=== PATIENT | female | born 1945 | race Caucasian/White ===

== ENCOUNTER 2022-05-08 16:21 | Inpatient (IN) ==
[2022-05-08] MEDS ORDERED: SODIUM CHLORIDE 0.9% 500 ML IV STA (17:07)
[2022-05-08 17:31] LABS: Basophils # (auto) 0.04 K/uL (0-0.2); Basophils % (auto) 0.3 %; Eosinophils # (auto) 0.27 K/uL (0-0.50); Eosinophils % (auto) 2.2 %; Hematocrit (blood only) 34.7 % (34.1-44.9); Hemoglobin 10.8 g/dl (12.0-16.0); Immature Granulocytes # (auto) 0.04 K/uL (0.00-0.02); Immature Granulocytes % (auto) 0.3 %; Lymphocytes # (auto) 3.75 K/uL (1.2-3.4); Mean Corpuscular Hemoglobin 29.2 pg (25.0-34.0); Mean Corpuscular Hgb Conc 31.1 g/dL (32.0-36.0); Mean Corpuscular Volume 93.8 fL (80.0-100.0); Mean Platelet Volume 8.9 fL (9.4-12.3); Monocytes # (auto) 0.74 K/uL (0.24-0.82); Monocytes % (auto) 6.1 %; Neutrophils # (auto) 7.26 K/uL (1.4-6.5); Neutrophils % (auto) 60.1 %; Platelet Count 452 K/uL (130-400); RDW Coefficient of Variation 14.8 % (11.5-14.5); RDW Standard Deviation 50.7 fL (36.4-46.3)
--- NOTE | 2022-05-08 17:32 | Emergency Department Note ---
Impression & Plan Diffuse abdominal pain, Ileitis, Leukocytosis, Acute urinary retention, Failure of outpatient treatment ED Provider Note NAME: NELLIE MELENDREZ AGE: 77 SEX: F : 1945 ARRIVES VIA: Ambulance INFORMANT: [Patient][ems, nursing] ED PROVIDER(S): [Desmond Tafoya MD] CHIEF COMPLAINT: Diarrhea HISTORY OF PRESENT ILLNESS: The patient is a 77-year-old female who by report is on 2 antibiotics. Looking at old records, she was in this ED around a week ago and given cefdinir and Flagyl for ileitis. She has been having 2 days of explosive diarrhea which nursing staff feels may be C. difficile. The patient currently denies pain. She has a history of stroke and is nonverbal but can nod her head yes or no. There has been some nausea reported. No reported vomiting. Given the patient's nonverbal status, no further history obtainable. REVIEW OF SYSTEMS: Unobtainable given the nonverbal status. PMHx/PSHx: See Below SOCIAL HISTORY: See Below. PHYSICAL EXAM: GENERAL: Patient is in no acute distress. HEENT: No acute trauma, normocephalic atraumatic, mucous membranes moist, no nasal congestion, no scleral icterus. NECK: No stridor, no adenopathy, no meningismus, trachea is midline. LUNGS: Clear to auscultation bilaterally, no wheeze, no rhonchi, breath sounds equal. HEART: Without murmurs gallops or rubs, regular rate and rhythm. ABDOMEN: Soft, nontender, bowel sounds positive, no peritonitis. EXTREMITIES: No cyanosis or edema, full range of motion of all the joints without pain or difficulty, no signs for acute trauma. NEUROLOGIC: Nonverbal, no real movement of the right upper extremity, decreased movement of the right lower extremity when compared to left. The patient does attempt to follow commands. SKIN: No rash, no jaundice, no diaphoresis. DIFFERENTIAL DIAGNOSIS: Appendicitis, C. difficile, diverticulitis, UTI, obstruction, mesenteric ischemia, aortic pathology, inflammatory bowel disease, renal colic, PUD, pancreatitis, biliary pathology, hernia, volvulus, constipation, as well as other pathologies. EMERGENCY DEPARTMENT COURSE/PROCEDURES: ECG: Indication was diarrhea and nausea. The ECG shows a normal sinus rhythm with a rate of 87. There is poor R wave progression. There is no ST elevation, no PVCs. The QTC is 500. Continuous Cardiac Monitoring: An order was placed for continuous cardiac monitoring. The monitor shows a rate of 74 with normal sinus rhythm. Bladder scan showed over 900 cc, significant urinary retention. MEDICAL DECISION MAKING: There is a mild leukocytosis which would be consistent with infection. The patient is anemic however, she has a history of the same. Platelet count mildly elevated. Sodium slightly low at 133. No renal failure. No concerning liver enzyme elevation. No evidence for pancreatitis. Urinalysis does not show infection. Stool bio fire was completely negative. COVID test returned negative. Abdominal and pelvis CT does show evidence for ileitis, there were increased loops of air-filled bowel seen, no bowel obstruction. During the mary alan's ED stay, she began screaming in pain. She received IV morphine, IV Tylenol, IV Toradol and IV Zofran. She was given a 500 cc saline bolus. A bladder scan confirmed urinary retention. A Chong catheter was placed. After the Chong catheter placement, she seemed improved. She was resting comfortably. The patient presents with worsening of her situation. She has been on antibiotics for about a week with no improvement in the ileitis by CT reading. She still has a white count elevation. She presents today in severe pain which seemed largely due to urinary retention. She has had explosive diarrhea for the last 2 days which certainly may be from the ileitis and/or the use of anti biotics. As she is failing outpatient treatment, I do think a hospital stay would be warranted. I did speak with the patient, I spoke with case management, the on- call hospitalist was consulted. 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) Breast cancer CKD (chronic kidney disease) GERD (gastroesophageal reflux disease) Hypertension Multi-infarct dementia Family History Other Family history non-contributory Social History Smoking Status: Never smoker Preferred Language: Polish Current Living Situation: Detention Feels Safe at Home: Yes Allergies Allergies Allergy/AdvReac Type Severity Reaction Status Date / Time adhesive tape Allergy Unknown ON CENTRE Verified 04/30/22 18:52 CARE MED LIST mepivacaine [From Carbocaine] Allergy Unknown ON CENTRE Verified 04/30/22 18:52 CARE MED LIST tetanus immune globulin Allergy Unknown ON CENTRE Verified 04/30/22 18:52 CARE MED LIST Home Meds Home Medications Medication Instructions Recorded Confirmed acetaminophen 500 mg tablet 1,000 mg PO Q12H 04/30/22 05/08/22 (Tylenol Extra Strength) aspirin 81 mg chewable tablet 81 mg PO DAILY 04/30/22 05/08/22 atenolol 25 mg tablet 25 mg PO Q12 04/30/22 05/08/22 atorvastatin 80 mg tablet 80 mg PO HS 04/30/22 05/08/22 bacitracin 500 unit/gram topical 1 applic topical QPM 04/30/22 05/08/22 ointment baclofen 5 mg tablet 5 mg PO TID 04/30/22 05/08/22 calcium carbonate 300 mg (750 mg) 300 mg PO BID 04/30/22 05/08/22 chewable tablet (Tums Extra Strength Smoothies) dextromethorphan 20 mg-quinidine 1 cap PO BID 04/30/22 05/08/22 10 mg capsule diclofenac sodium 1 % topical gel 2 g topical QID 04/30/22 05/08/22 escitalopram oxalate 20 mg tablet 20 mg PO DAILY 04/30/22 05/08/22 (Lexapro) ferrous sulfate 325 mg (65 mg 325 mg PO DAILY 04/30/22 05/08/22 iron) tablet gabapentin 100 mg capsule 100 mg PO TID 04/30/22 05/08/22 hydrocortisone 1 % topical cream 1 applic topical Q6H PRN 04/30/22 05/08/22 (Preparation H Hydrocortisone) Hemorrhoids ibuprofen 200 mg tablet 400 mg PO Q6H PRN Pain 04/30/22 05/08/22 levetiracetam 750 mg tablet 750 mg PO Q12H 04/30/22 05/08/22 (Keppra) melatonin 3 mg tablet 3 mg PO HS 04/30/22 05/08/22 [id number] carb-vit K 1 tab PO DAILY 04/30/22 05/08/22 18 mg iron-400 mcg-500 mg tablet oxybutynin chloride 10 mg 10 mg PO DAILY 04/30/22 05/08/22 tablet,extended release 24 hr pantoprazole 40 mg tablet,delayed 40 mg PO DAILY 04/30/22 05/08/22 release Saccharomyces boulardii 250 mg 250 mg PO BID 05/08/22 05/08/22 capsule (Florastor) acetaminophen 325 mg tablet 650 mg PO Q6 PRN temp > 100 05/08/22 05/08/22 (Tylenol) promethazine 25 mg tablet 25 mg PO Q6H PRN Nausea And 05/08/22 05/08/22 Vomiting promethazine 25 mg/mL injection 25 mg IM Q6H PRN Nausea And 05/08/22 05/08/22 solution Vomiting quetiapine 25 mg tablet 25 mg PO Q12 05/08/22 05/08/22 vancomycin 125 mg capsule 125 mg PO Q6 05/08/22 05/08/22 Previous Rx's Medication Instructions Recorded ondansetron 4 mg disintegrating 4 mg PO Q6H PRN nausea and 04/30/22 tablet vomiting #14 tabs Results & Data (ED) Vital Signs Vital Signs - 24 hr 05/08/22 16:38 05/08/22 16:47 05/08/22 17:16 Pulse Rate 74 Pulse Rate [Right Foot] 85 Respiratory Rate 26 H Blood Pressure 133/104 H Blood Pressure [Right Arm] 133/104 H Blood Pressure Mean 113 Blood Pressure Mean [Right Arm] 113 Pulse Oximetry 93 94 94 Oxygen Delivery Method Room Air Room Air Room Air Sepsis Recent Fever Within 48 Hours No Sepsis New/Unexplained Change in Mental Status No Sepsis Action Taken by Nursing No Action Required 05/08/22 18:41 Pulse Rate Pulse Rate [Right Foot] 80 Respiratory Rate Blood Pressure Blood Pressure [Right Arm] 126/57 L Blood Pressure Mean Blood Pressure Mean [Right Arm] 80 Pulse Oximetry 93 Oxygen Delivery Method Room Air Sepsis Recent Fever Within 48 Hours Sepsis New/Unexplained Change in Mental Status Sepsis Action Taken by Detention Medications Current Medication List: was personally reviewed by me Laboratory Data Attestation: I reviewed the patient's lab results. Result diagrams: 05/08/22 16:58 05/08/22 16:58 Lab Results 05/08/22 05/08/22 05/08/22 Range/Units 16:30 16:40 16:58 WBC 12.10 H (4.8-10.8) K/ul RBC 3.70 L (3.93-5.22) M/uL Hgb 10.8 L (12.0-16.0) g/dl Hct 34.7 (34.1-44.9) % MCV 93.8 (80.0-100.0) fL MCH 29.2 (25.0-34.0) pg MCHC 31.1 L (32.0-36.0) g/dL RDW Std Deviation 50.7 H (36.4-46.3) fL RDW Coeff of Maria M 14.8 H (11.5-14.5) % Plt Count 452 H (130-400) K/uL MPV 8.9 L (9.4-12.3) fL Immature Gran % (Auto) 0.3 % Neut % (Auto) 60.1 % Lymph % (Auto) 31.0 % Kershaw % (Auto) 6.1 % Eos % (Auto) 2.2 % Baso % (Auto) 0.3 % Neut # (Auto) 7.26 H (1.4-6.5) K/uL Lymph # (Auto) 3.75 H (1.2-3.4) K/uL Kershaw # (Auto) 0.74 (0.24-0.82) K/uL Eos # (Auto) 0.27 (0-0.50) K/uL Baso # (Auto) 0.04 (0-0.2) K/uL Immature Gran # (Auto) 0.04 H (0.00-0.02) K/uL Sodium (136-145) mmol/L Potassium (3.5-5.1) mmol/L Chloride (98-107) mmol/L Carbon Dioxide (21-32) mmol/L Anion Gap (3-11) BUN (6-23) mg/dl Creatinine (0.6-1.2) mg/dl Est Cr Clr Drug Dosing ml/min Est GFR ( Amer) ml/min Est GFR (Non-Af Amer) ml/min BUN/Creatinine Ratio (10-20) Glucose (70-99(Fasting)) mg/dl Calcium (8.5-10.1) mg/dl Magnesium (1.7-2.4) mg/dl Total Bilirubin (0.2-1.0) mg/dl AST (13-39) U/L ALT (7-52) U/L Alkaline Phosphatase (34-104) U/L Total Protein (6.0-8.3) gm/dl Albumin (3.4-5.0) gm/dl Globulin (2.5-4.0) gm/dl Albumin/Globulin Ratio (0.9-2) Lipase (11-82) U/L Urine Color Yellow Urine Appearance Clear (Clear) Urine pH 5.5 (4.5-7.5) Ur Specific Lewis 1.014 (1.000-1.030) Urine Protein Negative (Negative) Urine Glucose (UA) Negative (Negative) Urine Ketones Negative (Negative) Urine Blood Negative (Negative) Urine Nitrite Negative (Negative) Urine Bilirubin Negative (Negative) Urine Urobilinogen Negative (Negative) Ur Leukocyte Esterase Trace H (Negative) Urine WBC (Auto) 1-5 (0-5) /hpf Urine RBC (Auto) 0-4 (0-4) /hpf U Hyaline Cast (Auto) 1-5 (0-5) /lpf U Epithel Cells (Auto) 10-20 H (0-5) /lpf Urine Bacteria (Auto) Negative (Negative) Stl C. cayetanensis PCR Not Detected (NotDetected) Stool Rotavirus A PCR Not Detected (NotDetected) Stl Adenov F 40/41 PCR Not Detected (NotDetected) Stool Astrovirus (PCR) Not Detected (NotDetected) Stool Campylobacter PCR Not Detected (NotDetected) Stl C. diff Tox A/B PCR Not Detected (NotDetected) Stool Cryptosporidium PCR Not Detected (NotDetected) Stl E.coli Shiga Tox PCR Not Detected (NotDetected) Stl Enterotoxigenic E PCR Not Detected (NotDetected) Stool EPEC (PCR) Not Detected (NotDetected) Stool EAEC (PCR) Not Detected (NotDetected) Stl E. histolytica PCR Not Detected (NotDetected) Stool Giardia Lamblia PCR Not Detected (NotDetected) Stool Salmonella PCR Not Detected (NotDetected) Stool Sapovirus (PCR) Not Detected (NotDetected) Stl P. shigelloides PCR Not Detected (NotDetected) Stl Shigella/EIEC PCR Not Detected (NotDetected) St Y.enterocolitica PCR Not Detected (NotDetected) Stool Vibrio (PCR) Not Detected (NotDetected) Stl Vibrio cholerae PCR Not Detected (NotDetected) Stl Norovirus GI/GII PCR Not Detected (NotDetected) SARS-CoV-2, RNA, NAAT (NEGATIVE) 05/08/22 05/08/22 Range/Units 16:58 17:17 WBC (4.8-10.8) K/ul RBC (3.93-5.22) M/uL Hgb (12.0-16.0) g/dl Hct (34.1-44.9) % MCV (80.0-100.0) fL MCH (25.0-34.0) pg MCHC (32.0-36.0) g/dL RDW Std Deviation (36.4-46.3) fL RDW Coeff of Maria M (11.5-14.5) % Plt Count (130-400) K/uL MPV (9.4-12.3) fL Immature Gran % (Auto) % Neut % (Auto) % Lymph % (Auto) % Kershaw % (Auto) % Eos % (Auto) % Baso % (Auto) % Neut # (Auto) (1.4-6.5) K/uL Lymph # (Auto) (1.2-3.4) K/uL Kershaw # (Auto) (0.24-0.82) K/uL Eos # (Auto) (0-0.50) K/uL Baso # (Auto) (0-0.2) K/uL Immature Gran # (Auto) (0.00-0.02) K/uL Sodium 133 L (136-145) mmol/L Potassium 3.7 (3.5-5.1) mmol/L Chloride 99 (98-107) mmol/L Carbon Dioxide 26 (21-32) mmol/L Anion Gap 8 (3-11) BUN 13 (6-23) mg/dl Creatinine 0.96 (0.6-1.2) mg/dl Est Cr Clr Drug Dosing 53.8 ml/min Est GFR ( Amer) 66.6 ml/min Est GFR (Non-Af Amer) 57.4 ml/min BUN/Creatinine Ratio 13.5 (10-20) Glucose 133 H (70-99(Fasting)) mg/dl Calcium 8.7 (8.5-10.1) mg/dl Magnesium 1.8 (1.7-2.4) mg/dl Total Bilirubin 0.4 (0.2-1.0) mg/dl AST 14 (13-39) U/L ALT 8 (7-52) U/L Alkaline Phosphatase 84 (34-104) U/L Total Protein 7.2 (6.0-8.3) gm/dl Albumin 3.9 (3.4-5.0) gm/dl Globulin 3.3 (2.5-4.0) gm/dl Albumin/Globulin Ratio 1.2 (0.9-2) Lipase 24 (11-82) U/L Urine Color Urine Appearance (Clear) Urine pH (4.5-7.5) Ur Specific Lewis (1.000-1.030) Urine Protein (Negative) Urine Glucose (UA) (Negative) Urine Ketones (Negative) Urine Blood (Negative) Urine Nitrite (Negative) Urine Bilirubin (Negative) Urine Urobilinogen (Negative) Ur Leukocyte Esterase (Negative) Urine WBC (Auto) (0-5) /hpf Urine RBC (Auto) (0-4) /hpf U Hyaline Cast (Auto) (0-5) /lpf U Epithel Cells (Auto) (0-5) /lpf Urine Bacteria (Auto) (Negative) Stl C. cayetanensis PCR (NotDetected) Stool Rotavirus A PCR (NotDetected) Stl Adenov F 40/41 PCR (NotDetected) Stool Astrovirus (PCR) (NotDetected) Stool Campylobacter PCR (NotDetected) Stl C. diff Tox A/B PCR (NotDetected) Stool Cryptosporidium PCR (NotDetected) Stl E.coli Shiga Tox PCR (NotDetected) Stl Enterotoxigenic E PCR (NotDetected) Stool EPEC (PCR) (NotDetected) Stool EAEC (PCR) (NotDetected) Stl E. histolytica PCR (NotDetected) Stool Giardia Lamblia PCR (NotDetected) Stool Salmonella PCR (NotDetected) Stool Sapovirus (PCR) (NotDetected) Stl P. shigelloides PCR (NotDetected) Stl Shigella/EIEC PCR (NotDetected) St Y.enterocolitica PCR (NotDetected) Stool Vibrio (PCR) (NotDetected) Stl Vibrio cholerae PCR (NotDetected) Stl Norovirus GI/GII PCR (NotDetected) SARS-CoV-2, RNA, NAAT NEGATIVE (NEGATIVE) Administered Medications Discontinued Medications Sodium Chloride (Nss) 500 mls @ 999 mls/hr IV .Q31M STA Stop: 05/08/22 17:37 Last Infusion: 05/08/22 17:53 Dose: 0 mls/hr Documented By: Admin: 05/08/22 17:20 Dose: 999 mls/hr Documented By: MES Acetaminophen (Ofirmev) 1,000 mg in 100 mls @ 400 mls/hr IV NOW STA Stop: 05/08/22 18:21 Last Infusion: 05/08/22 18:35 Dose: 0 mls/hr Documented By: Admin: 05/08/22 18:16 Dose: 400 mls/hr Documented By: QGV Ioversol (Optiray 350 100ml) 85 ml IV ONCE ONE Stop: 05/08/22 18:37 Last Admin: 05/08/22 18:37 Dose: 85 ml Documented By: DG Ketorolac Tromethamine (Ketorolac Tromethamine 15 Mg/Ml Vial) 15 mg IV NOW STA Stop: 05/08/22 18:08 Last Admin: 05/08/22 18:16 Dose: 15 mg Documented By: QGV Morphine Sulfate (Morphine Sulfate 4 Mg/Ml 1 Ml Carp\Vial) 4 mg IV NOW STA Stop: 05/08/22 18:08 Last Admin: 05/08/22 18:16 Dose: 4 mg Documented By: QGV Ondansetron HCl (Ondansetron Inj 2 Mg/Ml 2 Ml Vial) 4 mg IV NOW STA Stop: 05/08/22 18:08 Last Admin: 05/08/22 18:16 Dose: 4 mg Documented By: QGV Imaging Data Radiologist's Impression: Abdomen/Pelvis CT 05/08/22 17:07 CT abd pelvis IV con only CLINICAL HISTORY: poss colitis or divertic TECHNIQUE: Helical axial images of the abdomen and pelvis were obtained and disp layed. Automated dose lowering techniques and/or adjustment according to patient size were utilized for this exam. This exam was performed with intravenous contrast. CT DOSE: 935.70 mGy.cm COMPARISON: Comparison is made to CT abdomen and pelvis 04/30/2022 FINDINGS: Lower chest: Bronchiectasis and fibrotic changes are seen. Liver: Unremarkable. No focal lesions are seen. Gallbladder and biliary tree: Patient is status post cholecystectomy. Physiologic prominence of the biliary ducts is noted. Pancreas: Unremarkable, no focal lesions. Spleen: Unremarkable. Adrenals: Unremarkable. Kidneys and ureters: Redemonstration of bilateral renal cysts, left greater than right. Bladder: Chong catheter is seen. Reproductive organs: Unremarkable. Bowel: Numerous distended loops of gas and fluid-filled small bowel are seen. There is no transition point and the colon is not significantly underdistended. Thickening of the distal ileum is noted. Lymph nodes Retroperitoneal: Subcentimeter lymph nodes are noted. Pelvic: Bilateral subcentimeter pelvic side wall lymph nodes are noted. Mesenteric: Subcentimeter lymph nodes are noted in the right lower quadrant. Peritoneum: Soft tissue stranding is seen about multiple enlarged loops of bowel. Vessels: Atherosclerotic calcifications are seen. Abdominal wall: Unremarkable. Bones: Degenerative changes in the visualized spine. Grade 1 anterolisthesis is seen at L4-L5. IMPRESSION: Redemonstration of thickening of the distal ileum. In the interval there is increase in number of distended small bowel loops without a transition point. Findings are again favored to represent ileus, likely associated with infect ious/inflammatory process in the ileum and cecum. Underlying mass lesion is considered less likely. ACT 112: Negative or not required by law. Electronically signed by: Werner Ann M.D. 05/08/2022 7:00 PM Discharge Plan Visit Data Chief Complaint: Diarrhea ED Provider: Desmond Tafoya Discharge Problem: Diffuse abdominal pain, Ileitis, Leukocytosis, Acute urinary retention, Failure of outpatient treatment Patient Disposition: Admitted As Inpatient Condition: Fair Discharge Instructions Interventions: ED Discharge Assessment Last Done: 05/08/22 21:19 : Leukocytosis Qualifiers: Leukocytosis type: unspecified Qualified Code(s): D72.829 - Elevated white blood cell count, unspecified
[2022-05-08 17:48] LABS: Appearance Urine Clear (Clear); Bacteria Urine Automated Negative (Negative); Bilirubin Urine Negative (Negative); Blood Urine Negative (Negative); Color Urine Yellow; Glucose Urine UA Negative (Negative); Ketones Urine Negative (Negative); Leukocyte Esterase Urine Trace (Negative); Nitrite Urine Negative (Negative); Protein Urine Negative (Negative); RBC Urine Automated 0-4 /hpf (0-4); Specific Gravity Urine 1.014 (1.000-1.030); Urobilinogen Urine Negative (Negative); pH Urine 5.5 (4.5-7.5)
[2022-05-08 17:54] LABS: Albumin Globulin Ratio 1.2 (0.9-2); Albumin Level 3.9 gm/dl (3.4-5.0); BUN Creatinine Ratio 13.5 (10-20); Bilirubin,Total 0.4 mg/dl (0.2-1.0); Calcium 8.7 mg/dl (8.5-10.1); Creatinine Clr Calc Pharmacy 53.8 ml/min; Est GFR (African American) 66.6 ml/min; Est GFR (Non-African American) 57.4 ml/min; Globulin 3.3 gm/dl (2.5-4.0); Magnesium 1.8 mg/dl (1.7-2.4); Potassium 3.7 mmol/L (3.5-5.1); Total Protein 7.2 gm/dl (6.0-8.3)
[2022-05-08] MEDS ORDERED: KETOROLAC TROMETHAMINE 15 MG/ML VIAL IV STA (18:07)
[2022-05-08] MEDS ORDERED: MoRPHine SULFATE 4 MG/ML 1 ML CARP\\VIAL IV STA (18:07)
[2022-05-08] MEDS ORDERED: ACETAMINOPHEN 1,000 MG/100 ML VIAL IV STA (18:07)
[2022-05-08] MEDS ORDERED: ONDANSETRON INJ 2 MG/ML 2 ML VIAL IV STA (18:07)
[2022-05-08] MEDS ORDERED: OPTIRAY 350 100ml IV ONE (18:36)
[2022-05-08 18:42] LABS: Adenovirus F 40/41 PCR Not Detected (NotDetected); Astrovirus PCR Not Detected (NotDetected); Campylobacter PCR Not Detected (NotDetected); Clostridium diff Toxin A/B PCR Not Detected (NotDetected); Cryptosporidium PCR Not Detected (NotDetected); Cyclospora cayetanensis PCR Not Detected (NotDetected); Entamoeba histolytica PCR Not Detected (NotDetected); Enteroaggregative E.coli(EAEC) Not Detected (NotDetected); Enteropathogenic E.coli (EPEC) Not Detected (NotDetected); Enterotoxigenic E.coli (ETEC) Not Detected (NotDetected); Giardia lamblia PCR Not Detected (NotDetected); Norovirus GI/GII PCR Not Detected (NotDetected); Plesiomonas shigelloides PCR Not Detected (NotDetected); Rotavirus A PCR Not Detected (NotDetected); Salmonella PCR Not Detected (NotDetected); Sapovirus PCR Not Detected (NotDetected); Shiga-like Toxin E.coli (STEC) Not Detected (NotDetected); Shigella/Enteroinvasive E.coli Not Detected (NotDetected); Vibrio cholerae PCR Not Detected (NotDetected); Vibrio species PCR Not Detected (NotDetected); Yersinia enterocolitica PCR Not Detected (NotDetected)
--- NOTE | 2022-05-08 19:02 | CT Scan Report ---
CT abd pelvis IV con only CLINICAL HISTORY: poss colitis or divertic TECHNIQUE: Helical axial images of the abdomen and pelvis were obtained and displayed. Automated dose lowering techniques and/or adjustment according to patient size were utilized for this exam. This e xam was performed with intravenous contrast. CT DOSE: 935.70 mGy.cm COMPARISON: Comparison is made to CT abdomen and pelvis 04/30/2022 FINDINGS: Lower chest: Bronchiectasis and fibrotic changes are seen. Liver: Unremarkable. No focal lesions are seen. Gallbladder and biliary tree: Patient is status post cholecystectomy. Physiologic prominence of the b iliary ducts is noted. Pancreas: Unremarkable, no focal lesions. Spleen: Unremarkable. Adrenals: Unremarkable. Kidneys and ureters: Redemonstration of bilateral renal cysts, left greater than right. Bladder: Chong catheter is seen. Reproductive organs: Unremarkable. Bowel: Numerous distended loops of gas and fluid-filled small bowel are seen. There is no transition point and the colon is not significantly underdistended. Thickening of the distal ileum is noted. Lymph nodes Retroperitoneal: Subcentimeter lymph nodes are noted. Pelvic: Bilateral subcentimeter pelvic side wall lymph nodes are noted. Mesenteric: Subcentimeter lymph nodes are noted in the right lower quadrant. Peritoneum: Soft tissue stranding is seen about multiple enlarged loops of bowel. Vessels: Atherosclerotic calcifications are seen. Abdominal wall: Unremarkable. Bones: Degenerative changes in the visualized spine. Grade 1 anterolisthesis is seen at L4-L5. IMPRESSION: Redemonstration of thickening of the distal ileum. In the interval there is increase in number of dis tended small bowel loops without a transition point. Findings are again favored to represent ileus, l ikely associated with infectious/inflammatory process in the ileum and cecum. Underlying mass lesion is considered less likely. ACT 112: Negative or not required by law. Electronically signed by: Werner Ann M.D. 05/08/2022 7:00 PM
--- NOTE | 2022-05-08 20:11 | History & Physical Report ---
Date of Service May 08, 2022 Assessment & Plan (1) Ileitis: Plan: Patient found again to have inflammation of the terminal ileum thought to be secondary to infectious or inflammatory cause. Biofire panel is NEGATIVE, doubt infectious etiology. C.diff is NEGATIVE as well. Patient had been on antibiotics for presumed infectious ileitis - no improvement. ?inflammatory vs malignant cause. Consider Crohn's/UC, hyperplasia, secondary to NSAID use (patient is on Ibuprofen at home) lymphoma? WBC and platelets are similar to values from 04/30/22 -Symptomatic management with pain control, anti-emetics and anti-diarrheals -Check ESR and CRP -GI consultation appreciated. -Will need to discuss care plan with patient's family - she has DNR/DNI with limited therapy noted on chart. Doubt she would want endoscopy etc but will need to discuss options with family. (2) Ileus: Plan: No obstruction noted. Patient has been having diarrhea. 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 Patient is non-verbal. She is able to answer yes or no questions by shaking her head. -Continue Atorvastatin 80mg po gina for secondary prevention -Continue ASA 81mg po daily (5) CKD (chronic kidney disease): Plan: Near baseline -Avoid nephrotoxic agents -Renal dosing where needed (6) Hypertension: Plan: Blood pressure borderline low at this time, 99/62 -Continue IVF -Hold Atenolol for now -Monitor BP (7) Urinary retention: Plan: Mack catheter in place with 800mL dark colored urine -IVF -Monitor UOP -Continue Oxybutynin (8) Seizure disorder: Plan: Chronic. 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 Patient was seen in the ER with similar symptoms on 04/30/22. She had a CT of the abdomen and pelvis which revealed prominent wall thickening of the terminal ileum with numerous dilated loops of bowel of the proximal ileum without a transition point. Findings suggestive of infectious/inflammatory ileitis. She was treated with IVF, Tylenol, Pepcid, Protonix and Bentyl as well as Ceftriaxone and Flagyl. She was discharged home with Cefdinir and Metronidazole. She returns to the ER today with complaint of explosive diarrhea as well as some nausea. No vomiting. Patient is nonverbal but is clearly able to answer yes or no questions by shaking her head. She does report lower abdominal discomfort. Otherwise, denies fever, chills, chest pain, cough, SOB. She has not been eating much due to poor appetite. No additional complaints. In the ER she is afebrile, HD stable, NAD. Stool biofire panel performed in the ER is NEGATIVE. Patient was having some significant abdominal discomfort - She had a bladder scan performed which revealed 925mL of urine. A mack catheter was placed with return of clear yellow urine. ER Course: Tylenol, Toradol, Morphine, Zofran, NSS Allergies Allergy/AdvReac Type Severity Reaction Status Date / Time adhesive tape Allergy Unknown ON CENTRE Verified 04/30/22 18:52 CARE MED LIST mepivacaine [From Carbocaine] Allergy Unknown ON CENTRE Verified 04/30/22 18:52 CARE MED LIST tetanus immune globulin Allergy Unknown ON CENTRE Verified 04/30/22 18:52 CARE MED LIST Home Medications Medication Instructions Recorded Confirmed Type acetaminophen 500 mg tablet 1,000 mg PO Q12H 04/30/22 05/08/22 History (Tylenol Extra Strength) aspirin 81 mg chewable tablet 81 mg PO DAILY 04/30/22 05/08/22 History atenolol 25 mg tablet 25 mg PO Q12 04/30/22 05/08/22 History atorvastatin 80 mg tablet 80 mg PO HS 04/30/22 05/08/22 History bacitracin 500 unit/gram topical 1 applic topical QPM 04/30/22 05/08/22 History ointment baclofen 5 mg tablet 5 mg PO TID 04/30/22 05/08/22 History calcium carbonate 300 mg (750 mg) 300 mg PO BID 04/30/22 05/08/22 History chewable tablet (Tums Extra Strength Smoothies) dextromethorphan 20 mg-quinidine 1 cap PO BID 04/30/22 05/08/22 History 10 mg capsule diclofenac sodium 1 % topical gel 2 g topical QID 04/30/22 05/08/22 History escitalopram oxalate 20 mg tablet 20 mg PO DAILY 04/30/22 05/08/22 History (Lexapro) ferrous sulfate 325 mg (65 mg 325 mg PO DAILY 04/30/22 05/08/22 History iron) tablet gabapentin 100 mg capsule 100 mg PO TID 04/30/22 05/08/22 History hydrocortisone 1 % topical cream 1 applic topical Q6H PRN 04/30/22 05/08/22 History (Preparation H Hydrocortisone) Hemorrhoids ibuprofen 200 mg tablet 400 mg PO Q6H PRN Pain 04/30/22 05/08/22 History levetiracetam 750 mg tablet 750 mg PO Q12H 04/30/22 05/08/22 History (Keppra) melatonin 3 mg tablet 3 mg PO HS 04/30/22 05/08/22 History exgillix-ciu-xbuw-FA-Ca carb-vit K 1 tab PO DAILY 04/30/22 05/08/22 History 18 mg iron-400 mcg-500 mg tablet ondansetron 4 mg disintegrating 4 mg PO Q6H PRN nausea and 04/30/22 05/08/22 Rx tablet vomiting #14 tabs oxybutynin chloride 10 mg 10 mg PO DAILY 04/30/22 05/08/22 History tablet,extended release 24 hr pantoprazole 40 mg tablet,delayed 40 mg PO DAILY 04/30/22 05/08/22 History release Saccharomyces boulardii 250 mg 250 mg PO BID 05/08/22 05/08/22 History capsule (Florastor) acetaminophen 325 mg tablet 650 mg PO Q6 PRN temp > 100 05/08/22 05/08/22 History (Tylenol) promethazine 25 mg tablet 25 mg PO Q6H PRN Nausea And 05/08/22 05/08/22 History Vomiting promethazine 25 mg/mL injection 25 mg IM Q6H PRN Nausea And 05/08/22 05/08/22 History solution Vomiting quetiapine 25 mg tablet 25 mg PO Q12 05/08/22 05/08/22 History vancomycin 125 mg capsule 125 mg PO Q6 05/08/22 05/08/22 History Past Med/Surg History Medical History (Updated 05/08/22 @ 23:24 by Lavern Carroll DO) 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) Breast cancer CKD (chronic kidney disease) GERD (gastroesophageal reflux disease) Hypertension Multi-infarct dementia Family History Other Family history non-contributory Social History Smoking Status: Never smoker Preferred Language: B[place] Current Living Situation: [facility] Feels Safe at Home: Yes Review of Systems Review of Systems: All systems reviewed & are unremarkable except as noted in HPI & below Physical Exam Physical Exam: General: patient resting comfortably, NAD Skin: warm, dry, intact, no rashes or lesions HEENT: NC/AT, PERRL, EOMI, anicteric sclera, conjunctiva without injection, external ear normal to inspection and nontender, nares patent, dry mucus membranes, dentition intact, no oropharyngeal lesions, neck supple, trachea midline, no LAD, no thyromegaly, no JVD Heart: +S1/S2, regular, no m/r/g Lungs: equal air entry bilaterally, no rales/rhonchi/wheezes Abd: +BS, soft, ND, tender in lower quadrants, no masses/organomegaly/ascites Ext: warm, 2+ pulses in UE/LE bilaterally, no clubbing/cyanosis or edema Neuro: patient with aphasia, nonverbal responses, dense right hemiplegia with facial droop. Results & Data Results & Data ([facility]) Vital Signs (Past 12 Hours) Vital Signs Pulse Pulse Resp BP BP Pulse Ox O2 Del Method 05/08/22 18:41 80 126/57 L 93 Room Air 05/08/22 17:16 94 Room Air 05/08/22 16:47 74 133/104 H 94 Room Air 05/08/22 16:38 85 26 H 133/104 H 93 Room Air Laboratory Results Laboratory Results WBC 12.10 K/ul (4.8-10.8) H 05/08/22 16:58 RBC 3.70 M/uL (3.93-5.22) L 05/08/22 16:58 Hgb 10.8 g/dl (12.0-16.0) L 05/08/22 16:58 Hct 34.7 % (34.1-44.9) 05/08/22 16:58 MCV 93.8 fL (80.0-100.0) 05/08/22 16:58 MCH 29.2 pg (25.0-34.0) 05/08/22 16:58 MCHC 31.1 g/dL (32.0-36.0) L 05/08/22 16:58 RDW Std Deviation 50.7 fL (36.4-46.3) H 05/08/22 16:58 RDW Coeff of Maria M 14.8 % (11.5-14.5) H 05/08/22 16:58 Plt Count 452 K/uL (130-400) H 05/08/22 16:58 MPV 8.9 fL (9.4-12.3) L 05/08/22 16:58 Immature Gran % (Auto) 0.3 % 05/08/22 16:58 Neut % (Auto) 60.1 % 05/08/22 16:58 Lymph % (Auto) 31.0 % 05/08/22 16:58 [place] % (Auto) 6.1 % 05/08/22 16:58 Eos % (Auto) 2.2 % 05/08/22 16:58 Baso % (Auto) 0.3 % 05/08/22 16:58 Neut # (Auto) 7.26 K/uL (1.4-6.5) H 05/08/22 16:58 Lymph # (Auto) 3.75 K/uL (1.2-3.4) H 05/08/22 16:58 [place]row # (Auto) 0.74 K/uL (0.24-0.82) 05/08/22 16:58 Eos # (Auto) 0.27 K/uL (0-0.50) 05/08/22 16:58 Baso # (Auto) 0.04 K/uL (0-0.2) 05/08/22 16:58 Immature Gran # (Auto) 0.04 K/uL (0.00-0.02) H 05/08/22 16:58 ESR 37 mm/hr (0-30) H 05/08/22 16:58 Sodium 133 mmol/L (136-145) L 05/08/22 16:58 Potassium 3.7 mmol/L (3.5-5.1) 05/08/22 16:58 Chloride 99 mmol/L (98-107) 05/08/22 16:58 Carbon Dioxide 26 mmol/L (21-32) 05/08/22 16:58 Anion Gap 8 (3-11) 05/08/22 16:58 BUN 13 mg/dl (6-23) 05/08/22 16:58 Creatinine 0.96 mg/dl (0.6-1.2) 05/08/22 16:58 Est Cr Clr Drug Dosing 53.8 ml/min 05/08/22 16:58 Est GFR ( Amer) 66.6 ml/min 05/08/22 16:58 Est GFR (Non-Af Amer) 57.4 ml/min 05/08/22 16:58 BUN/Creatinine Ratio 13.5 (-20) 05/08/22 16:58 Glucose 133 mg/dl (70-99(Fasting)) H 05/08/22 16:58 Calcium 8.7 mg/dl (8.5-10.1) 05/08/22 16:58 Phosphorus 3.4 mg/dl (2.5-4.9) 05/08/22 16:58 Magnesium 1.8 mg/dl (1.7-2.4) 05/08/22 16:58 Total Bilirubin 0.4 mg/dl (0.2-1.0) 05/08/22 16:58 AST 14 U/L (13-39) 05/08/22 16:58 ALT 8 U/L (7-52) 05/08/22 16:58 Alkaline Phosphatase 84 U/L (34-104) 05/08/22 16:58 C-Reactive Protein 0.84 mg/dl (0-0.5) H 05/08/22 16:58 Total Protein 7.2 gm/dl (6.0-8.3) 05/08/22 16:58 Albumin 3.9 gm/dl (3.4-5.0) 05/08/22 16:58 Globulin 3.3 gm/dl (2.5-4.0) 05/08/22 16:58 Albumin/Globulin Ratio 1.2 (0.9-2) 05/08/22 16:58 Lipase 24 U/L (11-82) 05/08/22 16:58 Urine Color Yellow 05/08/22 16:40 Urine Appearance Clear (Clear) 05/08/22 16:40 Urine pH 5.5 (4.5-7.5) 05/08/22 16:40 Ur Specific [place] 1.014 (1.000-1.030) 05/08/22 16:40 Urine Protein Negative (Negative) 05/08/22 16:40 Urine Glucose (UA) Negative (Negative) 05/08/22 16:40 Urine Ketones Negative (Negative) 05/08/22 16:40 Urine Blood Negative (Negative) 05/08/22 16:40 Urine Nitrite Negative (Negative) 05/08/22 16:40 Urine Bilirubin Negative (Negative) 05/08/22 16:40 Urine Urobilinogen Negative (Negative) 05/08/22 16:40 Ur Leukocyte Esterase Trace (Negative) H 05/08/22 16:40 Urine WBC (Auto) 1-5 /hpf (0-5) 05/08/22 16:40 Urine RBC (Auto) 0-4 /hpf (0-4) 05/08/22 16:40 U Hyaline Cast (Auto) 1-5 /lpf (0-5) 05/08/22 16:40 U Epithel Cells (Auto) 10-20 /lpf (0-5) H 05/08/22 16:40 Urine Bacteria (Auto) Negative (Negative) 05/08/22 16:40 Stl C. cayetanensis PCR Not Detected (NotDetected) 05/08/22 16:30 Stool Rotavirus A PCR Not Detected (NotDetected) 05/08/22 16:30 Stl Adenov F 40/41 PCR Not Detected (NotDetected) 05/08/22 16:30 Stool Astrovirus (PCR) Not Detected (NotDetected) 05/08/22 16:30 Stool Campylobacter PCR Not Detected (NotDetected) 05/08/22 16:30 Stl C. diff Tox A/B PCR Not Detected (NotDetected) 05/08/22 16:30 Stool Cryptosporidium PCR Not Detected (NotDetected) 05/08/22 16:30 Stl E.coli Shiga Tox PCR Not Detected (NotDetected) 05/08/22 16:30 Stl Enterotoxigenic E PCR Not Detected (NotDetected) 05/08/22 16:30 Stool EPEC (PCR) Not Detected (NotDetected) 05/08/22 16:30 Stool EAEC (PCR) Not Detected (NotDetected) 05/08/22 16:30 Stl E. histolytica PCR Not Detected (NotDetected) 05/08/22 16:30 Stool Giardia Lamblia PCR Not Detected (NotDetected) 05/08/22 16:30 Stool Salmonella PCR Not Detected (NotDetected) 05/08/22 16:30 Stool Sapovirus (PCR) Not Detected (NotDetected) 05/08/22 16:30 Stl P. shigelloides PCR Not Detected (NotDetected) 05/08/22 16:30 Stl Shigella/EIEC PCR Not Detected (NotDetected) 05/08/22 16:30 St Y.enterocolitica PCR Not Detected (NotDetected) 05/08/22 16:30 Stool Vibrio (PCR) Not Detected (NotDetected) 05/08/22 16:30 Stl Vibrio cholerae PCR Not Detected (NotDetected) 05/08/22 16:30 Stl Norovirus GI/GII PCR Not Detected (NotDetected) 05/08/22 16:30 SARS-CoV-2, RNA, NAAT NEGATIVE (NEGATIVE) 05/08/22 17:17 Impressions Abdomen/Pelvis CT 05/08/22 17:07 CT abd pelvis IV con only CLINICAL HISTORY: poss colitis or divertic TECHNIQUE: Helical axial images of the abdomen and pelvis were obtained and displayed. Automated dose lowering techniques and/or adjustment according to patient size were utilized for this exam. This exam was performed with intravenous contrast. CT DOSE: 935.70 mGy.cm COMPARISON: Comparison is made to CT abdomen and pelvis 04/30/2022 FINDINGS: Lower chest: Bronchiectasis and fibrotic changes are seen. Liver: Unremarkable. No focal lesions are seen. Gallbladder and biliary tree: Patient is status post cholecystectomy. Physiologic prominence of the biliary ducts is noted. Pancreas: Unremarkable, no focal lesions. Spleen: Unremarkable. Adrenals: Unremarkable. Kidneys and ureters: Redemonstration of bilateral renal cysts, left greater than right. Bladder: Mack catheter is seen. Reproductive organs: Unremarkable. Bowel: Numerous distended loops of gas and fluid-filled small bowel are seen. There is no transition point and the colon is not significantly underdistended. Thickening of the distal ileum is noted. Lymph nodes Retroperitoneal: Subcentimeter lymph nodes are noted. Pelvic: Bilateral subcentimeter pelvic side wall lymph nodes are noted. Mesenteric: Subcentimeter lymph nodes are noted in the right lower quadrant. Peritoneum: Soft tissue stranding is seen about multiple enlarged loops of bowel. Vessels: Atherosclerotic calcifications are seen. Abdominal wall: Unremarkable. Bones: Degenerative changes in the visualized spine. Grade 1 anterolisthesis is seen at L4-L5. IMPRESSION: Redemonstration of thickening of the distal ileum. In the interval there is increase in number of distended small bowel loops without a transition point. Findings are again favored to represent ileus, likely associated with infectious/inflammatory process in the ileum and cecum. Underlying mass lesion is considered less likely. ACT 112: Negative or not required by law. Electronically signed by: Werner Ann M.D. 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
[2022-05-08] MEDS ORDERED: MoRPHine SULFATE 2 MG/ML CARP IV PRN (21:44)
[2022-05-08] MEDS ORDERED: LOPERAMIDE HCL 2 MG CAP PO PRN (21:44)
[2022-05-08] MEDS ORDERED: IBUPROFEN 200 MG TAB PO PRN (21:44)
[2022-05-08] MEDS ORDERED: ONDANSETRON INJ 2 MG/ML 2 ML VIAL IV PRN (21:44)
[2022-05-08 22:34] LABS: C Reactive Protein 0.84 mg/dl (0-0.5); Phosphorus 3.4 mg/dl (2.5-4.9)
[2022-05-08] MEDS: LACTATED RINGER'S 1,000 ML IV SCH (22:52)
[2022-05-08] MEDS: [UNRECOGNIZED DRUG - REMARK] SCH (22:55)
[2022-05-08] MEDS: MELATONIN 3 MG TAB PO SCH (22:56)
[2022-05-08] MEDS: DICLOFENAC SOD 1% GEL 100 GM TUBE EXT SCH (22:57)
[2022-05-08] MEDS: ACETAMINOPHEN 500 MG TAB PO SCH (22:57)
[2022-05-08] MEDS: QUEtiapine FUMARATE 25 MG TABLET PO SCH (22:57)
[2022-05-08] MEDS: levETIRAcetam 250 MG TAB PO SCH (22:57)
[2022-05-08] MEDS: ATENOLOL 25 MG TABLET PO SCH ×2 (22:58→23:02)
[2022-05-08] MEDS: ENOXAPARIN INJ 40 MG/0.4 ML SYR SQ SCH (22:58)
[2022-05-08] MEDS: BACLOFEN 10 MG TAB PO SCH (22:59)
[2022-05-08] MEDS: ATORVASTATIN 40 MG TAB PO SCH (22:59)
[2022-05-08] MEDS: GABAPENTIN 100 MG CAP PO SCH (23:00)
[2022-05-09 07:59] LABS: Hematocrit (blood only) 30.7 % (34.1-44.9); Hemoglobin 9.6 g/dl (12.0-16.0); Mean Corpuscular Hemoglobin 29.7 pg (25.0-34.0); Mean Corpuscular Hgb Conc 31.3 g/dL (32.0-36.0); Platelet Count 365 K/uL (130-400); RDW Coefficient of Variation 14.7 % (11.5-14.5); RDW Standard Deviation 50.8 fL (36.4-46.3); Red Blood Count 3.23 M/uL (3.93-5.22); White Blood Count 7.83 K/ul (4.8-10.8)
[2022-05-09 08:24] LABS: BUN Creatinine Ratio 14.3 (10-20); Calcium 8.2 mg/dl (8.5-10.1); Creatinine Clr Calc Pharmacy 61.4 ml/min; Est GFR (African American) 78.2 ml/min; Est GFR (Non-African American) 67.5 ml/min; Potassium 3.4 mmol/L (3.5-5.1)
--- NOTE | 2022-05-09 08:54 | Electrocardiogram Report ---
Test Reason : Blood Pressure : / mmHG Vent. Rate : 087 BPM Atrial Rate : 087 BPM P-R Int : 172 ms QRS Dur : 086 ms QT Int : 416 ms P-R-T Axes : 056 -17 058 degrees QTc Int : 500 ms Poor data quality, interpretation may be adversely affected Normal sinus rhythm Possible Old (cited on or before 30-APR-2022) Abnormal ECG When compared with ECG of 30-APR-2022 18:26, No significant change was found Confirmed by Star Crouch ([id number]) on 05/09/2022 8:54:01 AM Referred By: [facility] Confirmed By:Star Crouch
[2022-05-09] MEDS: [UNRECOGNIZED DRUG - REMARK] SCH ×2 (09:12→16:16)
[2022-05-09] MEDS: LACTATED RINGER'S 1,000 ML IV SCH (09:12)
[2022-05-09] MEDS: ACETAMINOPHEN 500 MG TAB PO SCH ×2 (09:13→21:45)
[2022-05-09] MEDS: BACLOFEN 10 MG TAB PO SCH ×3 (09:13→21:46)
[2022-05-09] MEDS: ASPIRIN 81 MG ECTAB PO SCH (09:13)
[2022-05-09] MEDS: ESCITALOPRAM OXALATE 20 MG TAB PO SCH (09:14)
[2022-05-09] MEDS: DICLOFENAC SOD 1% GEL 100 GM TUBE EXT SCH ×4 (09:14→21:47)
[2022-05-09] MEDS: PANTOprazole 40 MG TAB PO SCH (09:14)
[2022-05-09] MEDS: levETIRAcetam 250 MG TAB PO SCH ×2 (09:15→21:48)
[2022-05-09] MEDS: OXYBUTYNIN CHLORIDE XL 5 MG TABCR PO SCH (09:15)
[2022-05-09] MEDS: QUEtiapine FUMARATE 25 MG TABLET PO SCH ×2 (09:15→21:48)
[2022-05-09] MEDS: GABAPENTIN 100 MG CAP PO SCH ×3 (09:15→21:47)
--- NOTE | 2022-05-09 14:48 | Gastrointestinal Consultation ---
Date of Consultation May 09, 2022 Assessment & Plan (1) Ileitis: History lacking at this time but has thickened TI on CT and signs of ileus/obstruction proximal to this. She is not at the typical age for initial presentation of Crohn's disease. I guess it is possible though. She is still in the time frame where this could be an infectious process that is slow to resolve. Obviously TB can mimic Crohn's as well. TI lymphoma could be a consideration as well. Decision about colonoscopy would need to be done with family and all involved as I think she would have difficulty doing the prep. Could consider MRE as well. Will follow History of Present Illness Reason for Consultation: diarrhea, abnormal CT Attending Physician: Jon Navarro MD History of Present Illness 77 year old female admitted with diarrhea and thickened TI on CT. She is unable to give much history other than answering yes or no by head nods. Most of history from chart. Had diarrhea seen in ER a week ago and had CT that showed thickened TI. She returned to ER and the findings were persistent. She denies abdominal pain. She denies blood. All labs negative. Allergies Allergy/AdvReac Type Severity Reaction Status Date / Time adhesive tape Allergy Unknown ON CENTRE Verified 04/30/22 18:52 CARE MED LIST mepivacaine [From Carbocaine] Allergy Unknown ON CENTRE Verified 04/30/22 18:52 CARE MED LIST tetanus immune globulin Allergy Unknown ON CENTRE Verified 04/30/22 18:52 CARE MED LIST Home Medications Medication Instructions Recorded Confirmed Type acetaminophen 500 mg tablet 1,000 mg PO Q12H 04/30/22 05/08/22 History (Tylenol Extra Strength) aspirin 81 mg chewable tablet 81 mg PO DAILY 04/30/22 05/08/22 History atenolol 25 mg tablet 25 mg PO Q12 04/30/22 05/08/22 History atorvastatin 80 mg tablet 80 mg PO HS 04/30/22 05/08/22 History bacitracin 500 unit/gram topical 1 applic topical QPM 04/30/22 05/08/22 History ointment baclofen 5 mg tablet 5 mg PO TID 04/30/22 05/08/22 History calcium carbonate 300 mg (750 mg) 300 mg PO BID 04/30/22 05/08/22 History chewable tablet (Tums Extra Strength Smoothies) dextromethorphan 20 mg-quinidine 1 cap PO BID 04/30/22 05/08/22 History 10 mg capsule diclofenac sodium 1 % topical gel 2 g topical QID 04/30/22 05/08/22 History escitalopram oxalate 20 mg tablet 20 mg PO DAILY 04/30/22 05/08/22 History (Lexapro) ferrous sulfate 325 mg (65 mg 325 mg PO DAILY 04/30/22 05/08/22 History iron) tablet gabapentin 100 mg capsule 100 mg PO TID 04/30/22 05/08/22 History hydrocortisone 1 % topical cream 1 applic topical Q6H PRN 04/30/22 05/08/22 History (Preparation H Hydrocortisone) Hemorrhoids ibuprofen 200 mg tablet 400 mg PO Q6H PRN Pain 04/30/22 05/08/22 History levetiracetam 750 mg tablet 750 mg PO Q12H 04/30/22 05/08/22 History (Keppra) melatonin 3 mg tablet 3 mg PO HS 04/30/22 05/08/22 History bwxbxank-ahe-thuj-FA-Ca carb-vit K 1 tab PO DAILY 04/30/22 05/08/22 History 18 mg iron-400 mcg-500 mg tablet ondansetron 4 mg disintegrating 4 mg PO Q6H PRN nausea and 04/30/22 05/08/22 Rx tablet vomiting #14 tabs oxybutynin chloride 10 mg 10 mg PO DAILY 04/30/22 05/08/22 History tablet,extended release 24 hr pantoprazole 40 mg tablet,delayed 40 mg PO DAILY 04/30/22 05/08/22 History release Saccharomyces boulardii 250 mg 250 mg PO BID 05/08/22 05/08/22 History capsule (Florastor) acetaminophen 325 mg tablet 650 mg PO Q6 PRN temp > 100 05/08/22 05/08/22 History (Tylenol) promethazine 25 mg tablet 25 mg PO Q6H PRN Nausea And 05/08/22 05/08/22 History Vomiting promethazine 25 mg/mL injection 25 mg IM Q6H PRN Nausea And 05/08/22 05/08/22 History solution Vomiting quetiapine 25 mg tablet 25 mg PO Q12 05/08/22 05/08/22 History vancomycin 125 mg capsule 125 mg PO Q6 05/08/22 05/08/22 History Patient History Medical History 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) Breast cancer CKD (chronic kidney disease) GERD (gastroesophageal reflux disease) Hypertension Multi-infarct dementia Family History Other Family history non-contributory Social History Smoking Status: Unknown if ever smoked Hx Alcohol Use: No Hx Substance Use: No Preferred Language: Serbian Communication Ability: Impaired Ophthalmic Pathologist Required: No marital status: Current Living Situation: Rehab Other Information That Helps Us Care for You: No Feels Safe at Home: No Safety Concerns: Feels Safe At This Time Assistive Devices: Wheelchair Review of Systems Review of Systems: Unobtainable due to cognitive status Physical Exam Constitutional: WD/WN, vitals as above no acute distress Eyes: PERRL, conjunctivae normal, anicteric sclerae Neck: trachea midline, no thyromegaly Respiratory: normal respiratory effort, lungs clear to auscultation Cardiovascular: RRR, no murmur, no edema Gastrointestinal (Abdomen): normal bowel sounds, soft, nontender, no hepatosplenomegaly Musculoskeletal: Extremities: no cyanosis and no clubbing Skin: no rashes, warm and dry Results & Data ([facility]) Vital Signs (Past 12 Hours) Vital Signs Temp Pulse Resp BP Pulse Ox O2 Del Method 05/09/22 08:09 36.7 C 63 16 145/74 H 95 Room Air Laboratory Results 05/09/22 05/09/22 05/09/22 Range/Units Unknown 07:25 07:25 WBC 7.83 (4.8-10.8) K/ul RBC 3.23 L (3.93-5.22) M/uL Hgb 9.6 L (12.0-16.0) g/dl Hct 30.7 L (34.1-44.9) % MCV 95.0 (80.0-100.0) fL MCH 29.7 (25.0-34.0) pg MCHC 31.3 L (32.0-36.0) g/dL RDW Std Deviation 50.8 H (36.4-46.3) fL RDW Coeff of Maria M 14.7 H (11.5-14.5) % Plt Count 365 (130-400) K/uL MPV 9.0 L (9.4-12.3) fL Immature Gran % (Auto) % Neut % (Auto) % Lymph % (Auto) % Grimes % (Auto) % Eos % (Auto) % Baso % (Auto) % Neut # (Auto) (1.4-6.5) K/uL Lymph # (Auto) (1.2-3.4) K/uL Grimes # (Auto) (0.24-0.82) K/uL Eos # (Auto) (0-0.50) K/uL Baso # (Auto) (0-0.2) K/uL Immature Gran # (Auto) (0.00-0.02) K/uL ESR (0-30) mm/hr Sodium 136 (136-145) mmol/L Potassium 3.4 L (3.5-5.1) mmol/L Chloride 104 (98-107) mmol/L Carbon Dioxide 27 (21-32) mmol/L Anion Gap 5 (3-11) BUN 12 (6-23) mg/dl Creatinine 0.84 (0.6-1.2) mg/dl Est Cr Clr Drug Dosing 61.4 ml/min Est GFR ( Amer) 78.2 ml/min Est GFR (Non-Af Amer) 67.5 ml/min BUN/Creatinine Ratio 14.3 (10-20) Glucose 109 H (70-99(Fasting)) mg/dl Calcium 8.2 L (8.5-10.1) mg/dl Phosphorus (2.5-4.9) mg/dl Magnesium (1.7-2.4) mg/dl Total Bilirubin (0.2-1.0) mg/dl AST (13-39) U/L ALT (7-52) U/L Alkaline Phosphatase (34-104) U/L C-Reactive Protein (0-0.5) mg/dl Total Protein (6.0-8.3) gm/dl Albumin (3.4-5.0) gm/dl Globulin (2.5-4.0) gm/dl Albumin/Globulin Ratio (0.9-2) Lipase (11-82) U/L Urine Color Urine Appearance (Clear) Urine pH (4.5-7.5) Ur Specific Fountain (1.000-1.030) Urine Protein (Negative) Urine Glucose (UA) (Negative) Urine Ketones (Negative) Urine Blood (Negative) Urine Nitrite (Negative) Urine Bilirubin (Negative) Urine Urobilinogen (Negative) Ur Leukocyte Esterase (Negative) Urine WBC (Auto) (0-5) /hpf Urine RBC (Auto) (0-4) /hpf U Hyaline Cast (Auto) (0-5) /lpf U Epithel Cells (Auto) (0-5) /lpf Urine Bacteria (Auto) (Negative) Nasal Screen MRSA (PCR) Positive A (Negative) Stl C. cayetanensis PCR (NotDetected) Stool Rotavirus A PCR (NotDetected) Stl Adenov F 40/41 PCR (NotDetected) Stool Astrovirus (PCR) (NotDetected) Stool Campylobacter PCR (NotDetected) Stl C. diff Tox A/B PCR (NotDetected) Stool Cryptosporidium PCR (NotDetected) Stl E.coli Shiga Tox PCR (NotDetected) Stl Enterotoxigenic E PCR (NotDetected) Stool EPEC (PCR) (NotDetected) Stool EAEC (PCR) (NotDetected) Stl E. histolytica PCR (NotDetected) Stool Giardia Lamblia PCR (NotDetected) Stool Salmonella PCR (NotDetected) Stool Sapovirus (PCR) (NotDetected) Stl P. shigelloides PCR (NotDetected) Stl Shigella/EIEC PCR (NotDetected) St Y.enterocolitica PCR (NotDetected) Stool Vibrio (PCR) (NotDetected) Stl Vibrio cholerae PCR (NotDetected) Stl Norovirus GI/GII PCR (NotDetected) SARS-CoV-2, RNA, NAAT (NEGATIVE) 05/08/22 05/08/22 05/08/22 Range/Units 17:17 16:58 16:58 WBC (4.8-10.8) K/ul RBC (3.93-5.22) M/uL Hgb (12.0-16.0) g/dl Hct (34.1-44.9) % MCV (80.0-100.0) fL MCH (25.0-34.0) pg MCHC (32.0-36.0) g/dL RDW Std Deviation (36.4-46.3) fL RDW Coeff of Maria M (11.5-14.5) % Plt Count (130-400) K/uL MPV (9.4-12.3) fL Immature Gran % (Auto) % Neut % (Auto) % Lymph % (Auto) % Grimes % (Auto) % Eos % (Auto) % Baso % (Auto) % Neut # (Auto) (1.4-6.5) K/uL Lymph # (Auto) (1.2-3.4) K/uL Grimes # (Auto) (0.24-0.82) K/uL Eos # (Auto) (0-0.50) K/uL Baso # (Auto) (0-0.2) K/uL Immature Gran # (Auto) (0.00-0.02) K/uL ESR 37 H (0-30) mm/hr Sodium (136-145) mmol/L Potassium (3.5-5.1) mmol/L Chloride (98-107) mmol/L Carbon Dioxide (21-32) mmol/L Anion Gap (3-11) BUN (6-23) mg/dl Creatinine (0.6-1.2) mg/dl Est Cr Clr Drug Dosing ml/min Est GFR ( Amer) ml/min Est GFR (Non-Af Amer) ml/min BUN/Creatinine Ratio (10-20) Glucose (70-99(Fasting)) mg/dl Calcium (8.5-10.1) mg/dl Phosphorus 3.4 (2.5-4.9) mg/dl Magnesium (1.7-2.4) mg/dl Total Bilirubin (0.2-1.0) mg/dl AST (13-39) U/L ALT (7-52) U/L Alkaline Phosphatase (34-104) U/L C-Reactive Protein 0.84 H (0-0.5) mg/dl Total Protein (6.0-8.3) gm/dl Albumin (3.4-5.0) gm/dl Globulin (2.5-4.0) gm/dl Albumin/Globulin Ratio (0.9-2) Lipase (11-82) U/L Urine Color Urine Appearance (Clear) Urine pH (4.5-7.5) Ur Specific Fountain (1.000-1.030) Urine Protein (Negative) Urine Glucose (UA) (Negative) Urine Ketones (Negative) Urine Blood (Negative) Urine Nitrite (Negative) Urine Bilirubin (Negative) Urine Urobilinogen (Negative) Ur Leukocyte Esterase (Negative) Urine WBC (Auto) (0-5) /hpf Urine RBC (Auto) (0-4) /hpf U Hyaline Cast (Auto) (0-5) /lpf U Epithel Cells (Auto) (0-5) /lpf Urine Bacteria (Auto) (Negative) Nasal Screen MRSA (PCR) (Negative) Stl C. cayetanensis PCR (NotDetected) Stool Rotavirus A PCR (NotDetected) Stl Adenov F 40/41 PCR (NotDetected) Stool Astrovirus (PCR) (NotDetected) Stool Campylobacter PCR (NotDetected) Stl C. diff Tox A/B PCR (NotDetected) Stool Cryptosporidium PCR (NotDetected) Stl E.coli Shiga Tox PCR (NotDetected) Stl Enterotoxigenic E PCR (NotDetected) Stool EPEC (PCR) (NotDetected) Stool EAEC (PCR) (NotDetected) Stl E. histolytica PCR (NotDetected) Stool Giardia Lamblia PCR (NotDetected) Stool Salmonella PCR (NotDetected) Stool Sapovirus (PCR) (NotDetected) Stl P. shigelloides PCR (NotDetected) Stl Shigella/EIEC PCR (NotDetected) St Y.enterocolitica PCR (NotDetected) Stool Vibrio (PCR) (NotDetected) Stl Vibrio cholerae PCR (NotDetected) Stl Norovirus GI/GII PCR (NotDetected) SARS-CoV-2, RNA, NAAT NEGATIVE (NEGATIVE) 05/08/22 05/08/22 05/08/22 Range/Units 16:58 16:58 16:40 WBC 12.10 H (4.8-10.8) K/ul RBC 3.70 L (3.93-5.22) M/uL Hgb 10.8 L (12.0-16.0) g/dl Hct 34.7 (34.1-44.9) % MCV 93.8 (80.0-100.0) fL MCH 29.2 (25.0-34.0) pg MCHC 31.1 L (32.0-36.0) g/dL RDW Std Deviation 50.7 H (36.4-46.3) fL RDW Coeff of Maria M 14.8 H (11.5-14.5) % Plt Count 452 H (130-400) K/uL MPV 8.9 L (9.4-12.3) fL Immature Gran % (Auto) 0.3 % Neut % (Auto) 60.1 % Lymph % (Auto) 31.0 % Grimes % (Auto) 6.1 % Eos % (Auto) 2.2 % Baso % (Auto) 0.3 % Neut # (Auto) 7.26 H (1.4-6.5) K/uL Lymph # (Auto) 3.75 H (1.2-3.4) K/uL Grimes # (Auto) 0.74 (0.24-0.82) K/uL Eos # (Auto) 0.27 (0-0.50) K/uL Baso # (Auto) 0.04 (0-0.2) K/uL Immature Gran # (Auto) 0.04 H (0.00-0.02) K/uL ESR (0-30) mm/hr Sodium 133 L (136-145) mmol/L Potassium 3.7 (3.5-5.1) mmol/L Chloride 99 (98-107) mmol/L Carbon Dioxide 26 (21-32) mmol/L Anion Gap 8 (3-11) BUN 13 (6-23) mg/dl Creatinine 0.96 (0.6-1.2) mg/dl Est Cr Clr Drug Dosing 53.8 ml/min Est GFR ( Amer) 66.6 ml/min Est GFR (Non-Af Amer) 57.4 ml/min BUN/Creatinine Ratio 13.5 (10-20) Glucose 133 H (70-99(Fasting)) mg/dl Calcium 8.7 (8.5-10.1) mg/dl Phosphorus (2.5-4.9) mg/dl Magnesium 1.8 (1.7-2.4) mg/dl Total Bilirubin 0.4 (0.2-1.0) mg/dl AST 14 (13-39) U/L ALT 8 (7-52) U/L Alkaline Phosphatase 84 (34-104) U/L C-Reactive Protein (0-0.5) mg/dl Total Protein 7.2 (6.0-8.3) gm/dl Albumin 3.9 (3.4-5.0) gm/dl Globulin 3.3 (2.5-4.0) gm/dl Albumin/Globulin Ratio 1.2 (0.9-2) Lipase 24 (11-82) U/L Urine Color Yellow Urine Appearance Clear (Clear) Urine pH 5.5 (4.5-7.5) Ur Specific Fountain 1.014 (1.000-1.030) Urine Protein Negative (Negative) Urine Glucose (UA) Negative (Negative) Urine Ketones Negative (Negative) Urine Blood Negative (Negative) Urine Nitrite Negative (Negative) Urine Bilirubin Negative (Negative) Urine Urobilinogen Negative (Negative) Ur Leukocyte Esterase Trace H (Negative) Urine WBC (Auto) 1-5 (0-5) /hpf Urine RBC (Auto) 0-4 (0-4) /hpf U Hyaline Cast (Auto) 1-5 (0-5) /lpf U Epithel Cells (Auto) 10-20 H (0-5) /lpf Urine Bacteria (Auto) Negative (Negative) Nasal Screen MRSA (PCR) (Negative) Stl C. cayetanensis PCR (NotDetected) Stool Rotavirus A PCR (NotDetected) Stl Adenov F 40/41 PCR (NotDetected) Stool Astrovirus (PCR) (NotDetected) Stool Campylobacter PCR (NotDetected) Stl C. diff Tox A/B PCR (NotDetected) Stool Cryptosporidium PCR (NotDetected) Stl E.coli Shiga Tox PCR (NotDetected) Stl Enterotoxigenic E PCR (NotDetected) Stool EPEC (PCR) (NotDetected) Stool EAEC (PCR) (NotDetected) Stl E. histolytica PCR (NotDetected) Stool Giardia Lamblia PCR (NotDetected) Stool Salmonella PCR (NotDetected) Stool Sapovirus (PCR) (NotDetected) Stl P. shigelloides PCR (NotDetected) Stl Shigella/EIEC PCR (NotDetected) St Y.enterocolitica PCR (NotDetected) Stool Vibrio (PCR) (NotDetected) Stl Vibrio cholerae PCR (NotDetected) Stl Norovirus GI/GII PCR (NotDetected) SARS-CoV-2, RNA, NAAT (NEGATIVE) 05/08/22 Range/Units 16:30 WBC (4.8-10.8) K/ul RBC (3.93-5.22) M/uL Hgb (12.0-16.0) g/dl Hct (34.1-44.9) % MCV (80.0-100.0) fL MCH (25.0-34.0) pg MCHC (32.0-36.0) g/dL RDW Std Deviation (36.4-46.3) fL RDW Coeff of Maria M (11.5-14.5) % Plt Count (130-400) K/uL MPV (9.4-12.3) fL Immature Gran % (Auto) % Neut % (Auto) % Lymph % (Auto) % Grimes % (Auto) % Eos % (Auto) % Baso % (Auto) % Neut # (Auto) (1.4-6.5) K/uL Lymph # (Auto) (1.2-3.4) K/uL Grimes # (Auto) (0.24-0.82) K/uL Eos # (Auto) (0-0.50) K/uL Baso # (Auto) (0-0.2) K/uL Immature Gran # (Auto) (0.00-0.02) K/uL ESR (0-30) mm/hr Sodium (136-145) mmol/L Potassium (3.5-5.1) mmol/L Chloride (98-107) mmol/L Carbon Dioxide (21-32) mmol/L Anion Gap (3-11) BUN (6-23) mg/dl Creatinine (0.6-1.2) mg/dl Est Cr Clr Drug Dosing ml/min Est GFR ( Amer) ml/min Est GFR (Non-Af Amer) ml/min BUN/Creatinine Ratio (10-20) Glucose (70-99(Fasting)) mg/dl Calcium (8.5-10.1) mg/dl Phosphorus (2.5-4.9) mg/dl Magnesium (1.7-2.4) mg/dl Total Bilirubin (0.2-1.0) mg/dl AST (13-39) U/L ALT (7-52) U/L Alkaline Phosphatase (34-104) U/L C-Reactive Protein (0-0.5) mg/dl Total Protein (6.0-8.3) gm/dl Albumin (3.4-5.0) gm/dl Globulin (2.5-4.0) gm/dl Albumin/Globulin Ratio (0.9-2) Lipase (11-82) U/L Urine Color Urine Appearance (Clear) Urine pH (4.5-7.5) Ur Specific Fountain (1.000-1.030) Urine Protein (Negative) Urine Glucose (UA) (Negative) Urine Ketones (Negative) Urine Blood (Negative) Urine Nitrite (Negative) Urine Bilirubin (Negative) Urine Urobilinogen (Negative) Ur Leukocyte Esterase (Negative) Urine WBC (Auto) (0-5) /hpf Urine RBC (Auto) (0-4) /hpf U Hyaline Cast (Auto) (0-5) /lpf U Epithel Cells (Auto) (0-5) /lpf Urine Bacteria (Auto) (Negative) Nasal Screen MRSA (PCR) (Negative) Stl C. cayetanensis PCR Not Detected (NotDetected) Stool Rotavirus A PCR Not Detected (NotDetected) Stl Adenov F 40/41 PCR Not Detected (NotDetected) Stool Astrovirus (PCR) Not Detected (NotDetected) Stool Campylobacter PCR Not Detected (NotDetected) Stl C. diff Tox A/B PCR Not Detected (NotDetected) Stool Cryptosporidium PCR Not Detected (NotDetected) Stl E.coli Shiga Tox PCR Not Detected (NotDetected) Stl Enterotoxigenic E PCR Not Detected (NotDetected) Stool EPEC (PCR) Not Detected (NotDetected) Stool EAEC (PCR) Not Detected (NotDetected) Stl E. histolytica PCR Not Detected (NotDetected) Stool Giardia Lamblia PCR Not Detected (NotDetected) Stool Salmonella PCR Not Detected (NotDetected) Stool Sapovirus (PCR) Not Detected (NotDetected) Stl P. shigelloides PCR Not Detected (NotDetected) Stl Shigella/EIEC PCR Not Detected (NotDetected) St Y.enterocolitica PCR Not Detected (NotDetected) Stool Vibrio (PCR) Not Detected (NotDetected) Stl Vibrio cholerae PCR Not Detected (NotDetected) Stl Norovirus GI/GII PCR Not Detected (NotDetected) SARS-CoV-2, RNA, NAAT (NEGATIVE) Diagnostic Findings Abdomen/Pelvis CT 05/08/22 17:07 CT abd pelvis IV con only CLINICAL HISTORY: poss colitis or divertic TECHNIQUE: Helical axial images of the abdomen and pelvis were obtained and displayed. Automated dose lowering techniques and/or adjustment according to patient size were utilized for this exam. This exam was performed with intravenous contrast. CT DOSE: 935.70 mGy.cm COMPARISON: Comparison is made to CT abdomen and pelvis 04/30/2022 FINDINGS: Lower chest: Bronchiectasis and fibrotic changes are seen. Liver: Unremarkable. No focal lesions are seen. Gallbladder and biliary tree: Patient is status post cholecystectomy. Physiologic prominence of the biliary ducts is noted. Pancreas: Unremarkable, no focal lesions. Spleen: Unremarkable. Adrenals: Unremarkable. Kidneys and ureters: Redemonstration of bilateral renal cysts, left greater than right. Bladder: Chong catheter is seen. Reproductive organs: Unremarkable. Bowel: Numerous distended loops of gas and fluid-filled small bowel are seen. There is no transition point and the colon is not significantly underdistended. Thickening of the distal ileum is noted. Lymph nodes Retroperitoneal: Subcentimeter lymph nodes are noted. Pelvic: Bilateral subcentimeter pelvic side wall lymph nodes are noted. Mesenteric: Subcentimeter lymph nodes are noted in the right lower quadrant. Peritoneum: Soft tissue stranding is seen about multiple enlarged loops of bowel. Vessels: Atherosclerotic calcifications are seen. Abdominal wall: Unremarkable. Bones: Degenerative changes in the visualized spine. Grade 1 anterolisthesis is seen at L4-L5. IMPRESSION: Redemonstration of thickening of the distal ileum. In the interval there is increase in number of distended small bowel loops without a transition point. Findings are again favored to represent ileus, likely associated with infectious/inflammatory process in the ileum and cecum. Underlying mass lesion is considered less likely. ACT 112: Negative or not required by law. Electronically signed by: Werner Ann M.D. 05/08/2022 7:00 PM
--- NOTE | 2022-05-09 15:45 | Post Operative Brief Note ---
Immediate Post Op Note v1 Date of Surgery May 09, 2022 Pre & Post Diagnosis GI bleed, diverticulosis I identified the patient and participated in the time-out.: Yes Procedure Colonoscopy to cecum--extensive diverticular disease Surgeon Michele Perez Jr, MD Chief Customer Officer none Estimated Blood Loss 0 Findings Consistent with Post-Op Diagnosis Diverticulosis Anesthesia Type MAC Disposition Accompanied Patient To Recovery: No Disposition: Recovery Room Overlapping Procedure I was immediately available: during the entire case.
--- NOTE | 2022-05-09 18:15 | Hospitalist Progress Note ---
Date of Service May 09, 2022 Assessment & Plan (1) Ileitis: Plan: Patient found again to have inflammation of the terminal ileum thought to be secondary to infectious or inflammatory cause. Biofire panel is NEGATIVE, doubt infectious etiology. C.diff is NEGATIVE as well. Patient had been on antibiotics for presumed infectious ileitis - no improvement. ?inflammatory vs malignant cause. Consider Crohn's/UC, hyperplasia, secondary to NSAID use (patient is on Ibuprofen at home) lymphoma? WBC and platelets are similar to values from 04/30/22 -Symptomatic management with pain control, anti-emetics and anti-diarrheals -Check ESR and CRP -GI consultation appreciated. will need to discuss options with family. (2) Ileus: Plan: No obstruction noted. Patient has been having diarrhea. 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 Patient is non-verbal. She is able to answer yes or no questions by shaking her head. -Continue Atorvastatin 80mg po gina for secondary prevention -Continue ASA 81mg po daily (5) CKD (chronic kidney disease): Plan: Near baseline -Avoid nephrotoxic agents -Renal dosing where needed (6) Hypertension: Plan: Blood pressure borderline low at this time, 99/62 -Continue IVF -Hold Atenolol for now -Monitor BP (7) Urinary retention: Plan: Chong catheter in place with 800mL dark colored urine -IVF -Monitor UOP -Continue Oxybutynin (8) Seizure disorder: Plan: Chronic. -Continue Keppra 750mg po BID F/E/N - LR at 100mL/hr x 2 liters, monitor electrolytes and replete as needed, regular diet as tolerated with assistance as needed Ppx - Lovenox Code-DNR/DNI/LT per review of documentation Dispo - Admit to medical Admission and Anticipated Discharge Date Admission Date: May 08, 2022 Subjective Denies chest pain Positive loose stools noted Physical Exam Physical Exam: Neck no JVD Cardiovascular S1-S2 heard no rubs Lungs bilateral air entry decreased at bases no wheezing Abdomen soft no rebound tenderness Extremity trace edema Neuro no focal deficits Results & Data Results & Data ([facility]) Vital Signs (Past 12 Hours) Vital Signs Temp Pulse Resp BP Pulse Ox O2 Del Method 05/09/22 15:40 36.9 C 67 16 142/82 H 95 Room Air 05/09/22 08:09 36.7 C 63 16 145/74 H 95 Room Air PG Care Time/CCT Total # of Minutes Spent Total Time Spent with Patient: Total time spent is greater than 50% in coordination of care (as documented) at patient's floor/unit and/or counseling patient: Coding Level of Care Code 06930 Subseq Hosp Care Lvl 2 Diagnoses Ileitis K52.9 Ileus K56.7 GERD (gastroesophageal reflux disease) K21.9 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
[2022-05-09] MEDS: ATORVASTATIN 40 MG TAB PO SCH (21:45)
[2022-05-09] MEDS: ENOXAPARIN INJ 40 MG/0.4 ML SYR SQ SCH (21:47)
[2022-05-09] MEDS: MELATONIN 3 MG TAB PO SCH (21:49)
[2022-05-10] MEDS: [UNRECOGNIZED DRUG - REMARK] SCH ×2 (00:06→08:38)
[2022-05-10 07:47] LABS: Hematocrit (blood only) 34.8 % (34.1-44.9); Hemoglobin 10.6 g/dl (12.0-16.0); Mean Corpuscular Hemoglobin 29.2 pg (25.0-34.0); Mean Corpuscular Hgb Conc 30.5 g/dL (32.0-36.0); Mean Corpuscular Volume 95.9 fL (80.0-100.0); Mean Platelet Volume 8.8 fL (9.4-12.3); Platelet Count 427 K/uL (130-400); RDW Coefficient of Variation 14.6 % (11.5-14.5); RDW Standard Deviation 51.5 fL (36.4-46.3); Red Blood Count 3.63 M/uL (3.93-5.22); White Blood Count 9.36 K/ul (4.8-10.8)
[2022-05-10 08:26] LABS: BUN Creatinine Ratio 11.9 (10-20); Calcium 8.7 mg/dl (8.5-10.1); Creatinine Clr Calc Pharmacy 61.4 ml/min; Est GFR (African American) 78.2 ml/min; Est GFR (Non-African American) 67.5 ml/min; Potassium 3.4 mmol/L (3.5-5.1)
[2022-05-10] MEDS: PANTOprazole 40 MG TAB PO SCH (08:39)
[2022-05-10] MEDS: DICLOFENAC SOD 1% GEL 100 GM TUBE EXT SCH ×4 (08:39→21:38)
[2022-05-10] MEDS: ASPIRIN 81 MG ECTAB PO SCH (08:39)
[2022-05-10] MEDS: OXYBUTYNIN CHLORIDE XL 5 MG TABCR PO SCH (08:39)
[2022-05-10] MEDS: ESCITALOPRAM OXALATE 20 MG TAB PO SCH (08:39)
[2022-05-10] MEDS: GABAPENTIN 100 MG CAP PO SCH ×3 (08:40→21:38)
[2022-05-10] MEDS: levETIRAcetam 250 MG TAB PO SCH ×2 (08:40→21:44)
[2022-05-10] MEDS: QUEtiapine FUMARATE 25 MG TABLET PO SCH ×2 (08:40→21:44)
[2022-05-10] MEDS: BACLOFEN 10 MG TAB PO SCH ×3 (08:40→21:38)
[2022-05-10] MEDS: ACETAMINOPHEN 500 MG TAB PO SCH ×2 (08:41→21:43)
--- NOTE | 2022-05-10 17:42 | Hospitalist Progress Note ---
Date of Service May 10, 2022 Assessment & Plan (1) Ileitis: Plan: Patient found again to have inflammation of the terminal ileum thought to be secondary to infectious or inflammatory cause. Biofire panel is NEGATIVE, doubt infectious etiology. C.diff is NEGATIVE as well. Patient had been on antibiotics for presumed infectious ileitis - no improvement. ?inflammatory vs malignant cause. Consider Crohn's/UC, hyperplasia, secondary to NSAID use (patient is on Ibuprofen at home) lymphoma? WBC and platelets are similar to values from 04/30/22 -Symptomatic management with pain control, anti-emetics and anti-diarrheals -Check ESR and CRP -GI consultation appreciated. will need to discuss options with family. (2) Ileus: Plan: No obstruction noted. Patient has been having diarrhea. 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 Patient is non-verbal. She is able to answer yes or no questions by shaking her head. -Continue Atorvastatin 80mg po gina for secondary prevention -Continue ASA 81mg po daily (5) CKD (chronic kidney disease): Plan: Near baseline -Avoid nephrotoxic agents -Renal dosing where needed (6) Hypertension: Plan: Blood pressure borderline low at this time, 99/62 -Continue IVF -Hold Atenolol for now -Monitor BP (7) Urinary retention: Plan: Chong catheter in place with 800mL dark colored urine -IVF -Monitor UOP -Continue Oxybutynin (8) Seizure disorder: Plan: Chronic. -Continue Keppra 750mg po BID F/E/N - LR at 100mL/hr x 2 liters, monitor electrolytes and replete as needed, regular diet as tolerated with assistance as needed Ppx - Lovenox Code-DNR/DNI/LT per review of documentation Admission and Anticipated Discharge Date Admission Date: May 08, 2022 Subjective Denies chest pain Positive loose stools noted but this is improving since admission Physical Exam Physical Exam: Neck no JVD Cardiovascular S1-S2 heard no rubs Lungs bilateral air entry decreased at bases no wheezing Abdomen soft no rebound tenderness Extremity trace edema Neuro no focal deficits but patient is anxious Results & Data Results & Data ([facility]) Vital Signs (Past 12 Hours) Vital Signs Temp Pulse Resp BP Pulse Ox O2 Del Method 05/10/22 14:51 37.1 C 106 H 18 136/83 92 Room Air 05/10/22 08:17 37.1 C 85 16 138/78 93 Room Air Laboratory Results Short CBC 05/10/22 Range/Units 06:59 WBC 9.36 (4.8-10.8) K/ul Hgb 10.6 L (12.0-16.0) g/dl Hct 34.8 (34.1-44.9) % Plt Count 427 H (130-400) K/uL BMP 05/10/22 06:59 Sodium 138 Potassium 3.4 L Chloride 105 Carbon Dioxide 27 BUN 10 Creatinine 0.84 Glucose 97 Calcium 8.7 PG Care Time/CCT Total # of Minutes Spent Total Time Spent with Patient: Total time spent is greater than 50% in coordination of care (as documented) at patient's floor/unit and/or counseling patient: Coding Level of Care Code 41151 Subseq Hosp Care Lvl 2 Diagnoses Ileitis K52.9 Ileus K56.7 GERD (gastroesophageal reflux disease) K21.9 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
[2022-05-10] MEDS: LORazepam 0.5 MG in SYRINGE 0 ML IV PRN (17:55)
[2022-05-10] MEDS: ENOXAPARIN INJ 40 MG/0.4 ML SYR SQ SCH (21:42)
[2022-05-10] MEDS: MELATONIN 3 MG TAB PO SCH (21:42)
[2022-05-10] MEDS: ATORVASTATIN 40 MG TAB PO SCH (21:43)
[2022-05-11 07:55] LABS: Hemoglobin 10.3 g/dl (12.0-16.0); Mean Corpuscular Hemoglobin 29.2 pg (25.0-34.0); Mean Corpuscular Hgb Conc 31.2 g/dL (32.0-36.0); Mean Corpuscular Volume 93.5 fL (80.0-100.0); Mean Platelet Volume 8.3 fL (9.4-12.3); Platelet Count 391 K/uL (130-400); RDW Coefficient of Variation 14.4 % (11.5-14.5); RDW Standard Deviation 49.1 fL (36.4-46.3); Red Blood Count 3.53 M/uL (3.93-5.22); White Blood Count 8.83 K/ul (4.8-10.8)
[2022-05-11 08:37] LABS: Albumin Globulin Ratio 1.1 (0.9-2); Albumin Level 3.5 gm/dl (3.4-5.0); BUN Creatinine Ratio 6.7 (10-20); Bilirubin,Total 0.3 mg/dl (0.2-1.0); Calcium 8.6 mg/dl (8.5-10.1); Creatinine Clr Calc Pharmacy 68.7 ml/min; Est GFR (African American) 89.7 ml/min; Est GFR (Non-African American) 77.4 ml/min; Globulin 3.1 gm/dl (2.5-4.0); Potassium 3.3 mmol/L (3.5-5.1); Total Protein 6.6 gm/dl (6.0-8.3)
[2022-05-11] MEDS: DICLOFENAC SOD 1% GEL 100 GM TUBE EXT SCH ×4 (09:11→20:49)
[2022-05-11] MEDS: ASPIRIN 81 MG ECTAB PO SCH (09:12)
[2022-05-11] MEDS: GABAPENTIN 100 MG CAP PO SCH ×3 (09:12→20:50)
[2022-05-11] MEDS: OXYBUTYNIN CHLORIDE XL 5 MG TABCR PO SCH (09:13)
[2022-05-11] MEDS: ESCITALOPRAM OXALATE 20 MG TAB PO SCH (09:13)
[2022-05-11] MEDS: BACLOFEN 10 MG TAB PO SCH ×3 (09:13→20:49)
[2022-05-11] MEDS: ACETAMINOPHEN 500 MG TAB PO SCH ×2 (09:13→20:47)
[2022-05-11] MEDS: levETIRAcetam 250 MG TAB PO SCH ×2 (09:14→20:50)
[2022-05-11] MEDS: QUEtiapine FUMARATE 25 MG TABLET PO SCH ×2 (09:14→20:51)
[2022-05-11] MEDS: PANTOprazole 40 MG TAB PO SCH (09:14)
[2022-05-11] MEDS: LORazepam 0.5 MG in SYRINGE 0 ML IV PRN ×2 (14:09→21:46)
--- NOTE | 2022-05-11 14:30 | Hospitalist Progress Note ---
Date of Service May 11, 2022 Assessment & Plan (1) Ileitis: Plan: Patient found again to have inflammation of the terminal ileum thought to be secondary to infectious or inflammatory cause. C.diff is NEGATIVE as well. As patient has some watery stools today we will recheck C. difficile today Patient had been on antibiotics for presumed infectious ileitis - no improvement. ?inflammatory vs malignant cause. Consider Crohn's/UC, hyperplasia, secondary to NSAID use (patient is on Ibuprofen at home) lymphoma? -Symptomatic management with pain control, anti-emetics and anti-diarrheals -Check ESR and CRP -GI consultation appreciated. will need to discuss options with family. (2) Ileus: Plan: No obstruction noted. Patient has been having diarrhea. 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 Patient is non-verbal. She is able to answer yes or no questions by shaking her head. -Continue Atorvastatin 80mg po gina for secondary prevention -Continue ASA 81mg po daily (5) CKD (chronic kidney disease): Plan: Near baseline -Avoid nephrotoxic agents -Renal dosing where needed (6) Hypertension: Plan: Blood pressure borderline low at this time, 99/62 -Continue IVF -Hold Atenolol for now -Monitor BP (7) Urinary retention: Plan: Chogn catheter in place with 800mL dark colored urine -IVF -Monitor UOP -Continue Oxybutynin (8) Seizure disorder: Plan: Chronic. -Continue Keppra 750mg po BID F/E/N - LR at 100mL/hr x 2 liters, monitor electrolytes and replete as needed, regular diet as tolerated with assistance as needed Ppx - Lovenox Code-DNR/DNI/LT per review of documentation Admission and Anticipated Discharge Date Admission Date: May 08, 2022 Subjective Denies chest pain loose stools noted today and recent C. difficile test is negative Anxiety slightly improved Physical Exam Physical Exam: Neck no JVD Cardiovascular S1-S2 heard no rubs Lungs bilateral air entry decreased at bases no wheezing Abdomen soft no rebound tenderness Extremity trace edema Neuro no focal deficits but patient is anxious Results & Data Results & Data ([facility]) Vital Signs (Past 12 Hours) Vital Signs Temp Pulse Resp BP Pulse Ox O2 Del Method 05/11/22 08:37 Room Air 05/11/22 06:39 37.1 C 79 20 175/75 H 98 Room Air Laboratory Results Short CBC 05/11/22 Range/Units 07:43 WBC 8.83 (4.8-10.8) K/ul Hgb 10.3 L (12.0-16.0) g/dl Hct 33.0 L (34.1-44.9) % Plt Count 391 (130-400) K/uL BMP 05/11/22 07:43 Sodium 138 Potassium 3.3 L Chloride 106 Carbon Dioxide 26 BUN 5 L Creatinine 0.75 Glucose 114 H Calcium 8.6 Liver Function 05/11/22 Range/Units 07:43 Total Bilirubin 0.3 (0.2-1.0) mg/dl AST 25 (13-39) U/L ALT 26 (7-52) U/L Alkaline Phosphatase 161 H (34-104) U/L Albumin 3.5 (3.4-5.0) gm/dl PG Care Time/CCT Total # of Minutes Spent Total Time Spent with Patient: Total time spent is greater than 50% in coordination of care (as documented) at patient's floor/unit and/or counseling patient: Coding Level of Care Code 87109 Subseq Hosp Care Lvl 2 Diagnoses Ileitis K52.9 Ileus K56.7 GERD (gastroesophageal reflux disease) K21.9 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
[2022-05-11] MEDS: ATORVASTATIN 40 MG TAB PO SCH (20:48)
[2022-05-11] MEDS: ENOXAPARIN INJ 40 MG/0.4 ML SYR SQ SCH (20:50)
[2022-05-11] MEDS: MELATONIN 3 MG TAB PO SCH (20:51)
[2022-05-12 07:48] LABS: Hematocrit (blood only) 33.3 % (34.1-44.9); Hemoglobin 10.5 g/dl (12.0-16.0); Mean Corpuscular Hgb Conc 31.5 g/dL (32.0-36.0); Mean Platelet Volume 8.6 fL (9.4-12.3); Platelet Count 420 K/uL (130-400); RDW Coefficient of Variation 14.2 % (11.5-14.5); RDW Standard Deviation 48.1 fL (36.4-46.3); Red Blood Count 3.62 M/uL (3.93-5.22); White Blood Count 10.75 K/ul (4.8-10.8)
[2022-05-12] MEDS: OXYBUTYNIN CHLORIDE XL 5 MG TABCR PO SCH (08:18)
[2022-05-12] MEDS: ACETAMINOPHEN 500 MG TAB PO SCH ×2 (08:18→21:33)
[2022-05-12] MEDS: ASPIRIN 81 MG ECTAB PO SCH (08:18)
[2022-05-12] MEDS: ESCITALOPRAM OXALATE 20 MG TAB PO SCH (08:18)
[2022-05-12] MEDS: BACLOFEN 10 MG TAB PO SCH ×3 (08:18→21:38)
[2022-05-12] MEDS: PANTOprazole 40 MG TAB PO SCH (08:18)
[2022-05-12] MEDS: levETIRAcetam 250 MG TAB PO SCH (08:18)
[2022-05-12] MEDS: QUEtiapine FUMARATE 25 MG TABLET PO SCH ×2 (08:18→21:38)
[2022-05-12] MEDS: GABAPENTIN 100 MG CAP PO SCH ×3 (08:18→21:38)
[2022-05-12] MEDS: DICLOFENAC SOD 1% GEL 100 GM TUBE EXT SCH ×4 (08:19→21:44)
[2022-05-12 08:27] LABS: BUN Creatinine Ratio 5.4 (10-20); Calcium 8.9 mg/dl (8.5-10.1); Creatinine Clr Calc Pharmacy 69.7 ml/min; Est GFR (African American) 91.2 ml/min; Est GFR (Non-African American) 78.7 ml/min; Potassium 3.3 mmol/L (3.5-5.1)
[2022-05-12] MEDS: LORazepam 0.5 MG in SYRINGE 0 ML IV PRN (11:08)
--- NOTE | 2022-05-12 12:01 | Gastroenterology Progress Note ---
Date of Service May 12, 2022 Assessment & Plan (1) Ileitis: Plan: If we honor her wishes she does not want colonoscopy. She tells me she is having one to two solid stools per day so I would just follow for now Admission and Anticipated Discharge Date Admission Date: May 08, 2022 Subjective With head nods she tells me she is better. She does nod yes to having diarrhea still but on further questioning she indicates one to two bowel movements per day that are solid. I also asked her if she would want to have a colonoscopy if we thought it was needed and she shook her head "no" several times Physical Exam Constitutional: WD/WN, vitals as above Results & Data ([facility]) Vital Signs (Past 12 Hours) Vital Signs Temp Pulse Resp BP Pulse Ox O2 Del Method 05/12/22 07:00 37.2 C 81 16 133/79 92 Room Air
[2022-05-12] MEDS ORDERED: LOPERAMIDE HCL 2 MG CAP PO PRN (13:17)
--- NOTE | 2022-05-12 13:17 | Hospitalist Progress Note ---
Date of Service May 12, 2022 Assessment & Plan (1) Ileitis: Plan: Patient found again to have inflammation of the terminal ileum thought to be secondary to infectious or inflammatory cause; however, stool PCR all negative. - GI consulted -> Feel GI lymphoma vs. IBD is possible. -- Given her mental status, it is hard to determine her desires. GI feels she declined a colonoscopy, though I could have conversation with her that I could determine her wishes. - Last recorded BMs that I see were on 05/11 and loose. (2) Ileus: Plan: No obstruction noted. Patient has been having diarrhea. - Monitor (3) GERD (gastroesophageal reflux disease): Plan: Chronic. 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 Patient is non-verbal (only says "bleep" to me). She is able to answer yes or no questions by shaking her head. - Continue atorvastatin 80mg PO daily for secondary prevention - Continue ASA 81mg po daily (5) CKD (chronic kidney disease): Plan: Baseline Cr ~0.75 - 0.85, CKD Stage II. At baseline. - Avoid nephrotoxic agents - Renal dosing where needed for CrCl ~60 - 70 mL/min. (6) Hypertension: Plan: Blood pressure is 135/80. - Hold atenolol - Monitor BP (7) Urinary retention: Plan: Chong catheter in place. - Monitor UOP - Continue oxybutynin (8) Seizure disorder: Plan: Chronic. - Continue Keppra 750mg po BID Plan DVT ppx: Lovenox 40 mg SQ HS Admission and Anticipated Discharge Date Admission Date: May 08, 2022 Subjective Not able to respond. Only repeats the word "Bleep." in varying tones and then starts to cry. Review of Systems Review of Systems: Unobtainable due to cognitive status Physical Exam Constitutional: WD/WN, vitals as above Eyes: EOM intact bilaterally; no conjunctival abnormality ENMT: external ear and nose normal, oropharynx normal Neck: trachea midline, no thyromegaly normal visual inspection Respiratory: normal respiratory effort, lungs clear to auscultation no respiratory distress Cardiovascular: RRR, no murmur, no edema Gastrointestinal (Abdomen): Inspection/Auscultation: abdomen normal to inspection; abdomen not distended Musculoskeletal: Does not appear to move right side. Skin: no rashes, warm and dry Neurologic: moves all extremities and awake Psychiatric: Orientation: alert and cooperative Affect: + tearful affect Results & Data Results & Data ([facility]) Vital Signs (Past 12 Hours) Vital Signs Temp Pulse Resp BP Pulse Ox O2 Del Method 05/12/22 07:00 37.2 C 81 16 133/79 92 Room Air PG Care Time/CCT Total # of Minutes Spent Total Time Spent with Patient: Total time spent is greater than 50% in coordination of care (as documented) at patient's floor/unit and/or counseling patient: Coding Level of Care Code 80575 Subseq Hosp Care Lvl 2 Diagnoses Ileitis K52.9 Ileus K56.7 GERD (gastroesophageal reflux disease) K21.9 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
[2022-05-12] MEDS ORDERED: ONDANSETRON 8MG OD TAB PO PRN (17:00)
[2022-05-12] MEDS: MoRPHine SULFATE 4 MG/ML 1 ML CARP\\VIAL IV PRN (17:57)
--- NOTE | 2022-05-12 18:40 | XRay Report ---
KUB CLINICAL HISTORY: Nausea, vomiting, tighter abdomen COMPARISON STUDY: CT of the abdomen and pelvis May 10, 2022. FINDINGS: Cholecystectomy clips are noted. The small bowel remains moderately dilated. This is simil ar to prior exam. This finding to represent a persistent small bowel obstruction. Gaseous distention of the stomach, slightly increased. IMPRESSION: Findings consistent with a persistent small bowel obstruction. Findings discussed with Luca Morocho at time of dictation. ACT 112: Negative or not required by law. Electronically signed by: Alejandro Dsouza M.D. 05/12/2022 6:38 PM
[2022-05-12] MEDS ORDERED: MoRPHine SULFATE 2 MG/ML CARP IV STA (19:03)
[2022-05-12 19:06] LABS: Base Excess VBG -1.3 mEq/L; HCO3 VBG 23 mmol/L; Hematocrit (blood only) 36.8 % (34.1-44.9); Hemoglobin 11.8 g/dl (12.0-16.0); Mean Corpuscular Hemoglobin 29.1 pg (25.0-34.0); Mean Corpuscular Hgb Conc 32.1 g/dL (32.0-36.0); Mean Corpuscular Volume 90.9 fL (80.0-100.0); Mean Platelet Volume 8.6 fL (9.4-12.3); Oxygen Saturation VBG 70.7 %; PCO2 VBG 35 mmHg (38-50); PO2 VBG 44 mmHg; Platelet Count 506 K/uL (130-400); RDW Coefficient of Variation 14.3 % (11.5-14.5); RDW Standard Deviation 47.8 fL (36.4-46.3); Red Blood Count 4.05 M/uL (3.93-5.22); White Blood Count 13.16 K/ul (4.8-10.8); pH VBG 7.42 (7.36-7.41)
[2022-05-12 19:36] LABS: Albumin Level 4.3 gm/dl (3.4-5.0); BUN Creatinine Ratio 6.2 (10-20); Bilirubin,Total 0.4 mg/dl (0.2-1.0); Calcium 9.5 mg/dl (8.5-10.1); Creatinine Clr Calc Pharmacy 45.6 ml/min; Est GFR (African American) 54.7 ml/min; Est GFR (Non-African American) 47.2 ml/min; Globulin 4.1 gm/dl (2.5-4.0); Potassium 3.2 mmol/L (3.5-5.1); Total Protein 8.4 gm/dl (6.0-8.3)
[2022-05-12] MEDS: ONDANSETRON INJ 2 MG/ML 2 ML VIAL IV PRN (19:37)
[2022-05-12] MEDS ORDERED: SODIUM CHLORIDE 0.9% 1000ML 500 ML IV ONE (19:38)
[2022-05-12 19:43] LABS: Basophils # (auto) 0.05 K/uL (0-0.2); Basophils % (auto) 0.4 %; Echinocytes 1+; Eosinophils # (auto) 0.25 K/uL (0-0.50); Eosinophils % (auto) 1.9 %; Immature Granulocytes # (auto) 0.04 K/uL (0.00-0.02); Immature Granulocytes % (auto) 0.3 %; Lymphocytes # (auto) 5.52 K/uL (1.2-3.4); Lymphocytes % (auto) 41.9 %; Monocytes % (auto) 5.3 %; Neutrophils % (auto) 50.2 %
--- NOTE | 2022-05-12 19:54 | XRay Report ---
KUB CLINICAL HISTORY: NGT placement COMPARISON STUDY: KUB performed earlier today. FINDINGS: Tip of nasogastric tube projects over the gastric antrum. Gastric distention has improved. Small bowel dilatation persists. This is partially imaged on this exam. The cholecystectomy clips. Le ft basilar airspace opacity is present. IMPRESSION: 1. Appropriately positioned nasogastric tube. Resolution of gastric distention. 2. Persistent small bowel dilatation suggestive of a small bowel obstruction. 3. Left basilar airspace opacity. ACT 112: Negative or not required by law. Electronically signed by: Alejandro Dsouza M.D. 05/12/2022 7:53 PM
--- NOTE | 2022-05-12 20:04 | Surgery Consultation ---
Date of Consultation May 12, 2022 Assessment & Plan (1) Small bowel obstruction: It appears as though the patient may have developed a small bowel obstruction. We will therefore proceed as follows: We will ensure the patient is on n.p.o. status She required resuscitation with IV fluids. I have ordered a bolus of normal saline, 500 cc. We will then run maintenance fluids at 100 cc/h for the present time We will initiate antibiotics in form of Zosyn We will repeat a lactic acid level at approximate 11:00 PM this evening An NG tube has been placed and we will continue this modality low continuous suction Due to the acute change in the patient's status we will check a CT scan of her abdomen and pelvis to further evaluate the patient's abdomen Additional recommendations be forthcoming based on CT scan findings as well as her clinical course as it unfolds Supervising Physician Co-Signing Physician Notes Dr. Ramírez above by Art Amezquita-patient appears to have additional abdominal pain different from prior with a mildly elevated lactic acid Her KUB showed distended stomach with some dilated small bowel-NG tube placed now draining clear bilious fluid Patient underwent CT scan which shows her ileum to be somewhat improved from prior although final report is pending She is awake and alert and does respond although is aphasic from a stroke and has right hemiplegia She does have some bowel sounds she does not have any peritoneal signs she is moderately distended I do not think she requires an emergency operation-continue NG tube, IV fluids and antibiotics We also will order a Chong catheter to monitor her fluids Dehydration may be an etiology for her elevated lactic acid History of Present Illness Reason for Consultation: Abdominal pain with concern for small bowel obstruction Attending Physician: Lucas Morocho MD History of Present Illness This is a 77-year-old female who was admitted to [facility] on 05/08/2022 secondary to abdominal pain, nausea, vomiting, and diarrhea. Patient had a previous history of duodenitis earlier in April of this year for which she received antibiotics. During this admission she has been seen by gastroenterology who were considering performing a colonoscopy however the patient apparently declined this. During this hospitalization at time of mission patient had a CT scan of the abdomen pelvis that showed findings consistent with thickening of the distal ileum along with an infectious and inflammatory process of the ileum and cecum. An underlying mass at the ileocecal junction could not be excluded. Earlier today the patient developed some worsening abdominal distention, worsening abdominal pain, along with severe retching. A KUB was performed that was showed concerns for developing small bowel obstruction. Because of this the primary service ordered an NG tube which was placed. Upon placement of the NG tube approximately 200 cc of gastric contents were immediately obtained. During this episode patient had stat labs drawn where her white blood cell count was 13.1. Should be noted that at time of admission her white blood cell count was 12.1. Hemoglobin and hematocrit were 11.8 and 36.8 with an platelet count was 506,000. Chemistry profile showed sodium and potassium are 135 and 3.2. Her BUN and creatinine were 7 and 1.1. Lactic acid level was checked and was 3.6. It is nowhere the mention that the patient has had a stool check for C. difficile this admission which was negative. Patient does have a history of a previous stroke which makes her largely nonverbal but she can nod her head yes and no when asked simple questions. Patient did note that her abdomen was significantly tender and she pointed to the right of the umbilicus. It was difficult to ascertain any other symptomatology from the patient. Allergies Allergy/AdvReac Type Severity Reaction Status Date / Time adhesive tape Allergy Unknown ON CENTRE Verified 04/30/22 18:52 CARE MED LIST mepivacaine [From Carbocaine] Allergy Unknown ON CENTRE Verified 04/30/22 18:52 CARE MED LIST tetanus immune globulin Allergy Unknown ON CENTRE Verified 04/30/22 18:52 CARE MED LIST Home Medications Medication Instructions Recorded Confirmed Type acetaminophen 500 mg tablet 1,000 mg PO Q12H 04/30/22 05/08/22 History (Tylenol Extra Strength) aspirin 81 mg chewable tablet 81 mg PO DAILY 04/30/22 05/08/22 History atenolol 25 mg tablet 25 mg PO Q12 04/30/22 05/08/22 History atorvastatin 80 mg tablet 80 mg PO HS 04/30/22 05/08/22 History bacitracin 500 unit/gram topical 1 applic topical QPM 04/30/22 05/08/22 History ointment baclofen 5 mg tablet 5 mg PO TID 04/30/22 05/08/22 History calcium carbonate 300 mg (750 mg) 300 mg PO BID 04/30/22 05/08/22 History chewable tablet (Tums Extra Strength Smoothies) dextromethorphan 20 mg-quinidine 1 cap PO BID 04/30/22 05/08/22 History 10 mg capsule diclofenac sodium 1 % topical gel 2 g topical QID 04/30/22 05/08/22 History escitalopram oxalate 20 mg tablet 20 mg PO DAILY 04/30/22 05/08/22 History (Lexapro) ferrous sulfate 325 mg (65 mg 325 mg PO DAILY 04/30/22 05/08/22 History iron) tablet gabapentin 100 mg capsule 100 mg PO TID 04/30/22 05/08/22 History hydrocortisone 1 % topical cream 1 applic topical Q6H PRN 04/30/22 05/08/22 History (Preparation H Hydrocortisone) Hemorrhoids ibuprofen 200 mg tablet 400 mg PO Q6H PRN Pain 04/30/22 05/08/22 History levetiracetam 750 mg tablet 750 mg PO Q12H 04/30/22 05/08/22 History (Keppra) melatonin 3 mg tablet 3 mg PO HS 04/30/22 05/08/22 History mwgnozsy-muc-tnqx-FA-Ca carb-vit K 1 tab PO DAILY 04/30/22 05/08/22 History 18 mg iron-400 mcg-500 mg tablet ondansetron 4 mg disintegrating 4 mg PO Q6H PRN nausea and 04/30/22 05/08/22 Rx tablet vomiting #14 tabs oxybutynin chloride 10 mg 10 mg PO DAILY 04/30/22 05/08/22 History tablet,extended release 24 hr pantoprazole 40 mg tablet,delayed 40 mg PO DAILY 04/30/22 05/08/22 History release Saccharomyces boulardii 250 mg 250 mg PO BID 05/08/22 05/08/22 History capsule (Florastor) acetaminophen 325 mg tablet 650 mg PO Q6 PRN temp > 100 05/08/22 05/08/22 History (Tylenol) promethazine 25 mg tablet 25 mg PO Q6H PRN Nausea And 05/08/22 05/08/22 History Vomiting promethazine 25 mg/mL injection 25 mg IM Q6H PRN Nausea And 05/08/22 05/08/22 History solution Vomiting quetiapine 25 mg tablet 25 mg PO Q12 05/08/22 05/08/22 History vancomycin 125 mg capsule 125 mg PO Q6 05/08/22 05/08/22 History Patient History Medical History 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) Breast cancer CKD (chronic kidney disease) GERD (gastroesophageal reflux disease) Hypertension Multi-infarct dementia Family History Other Family history non-contributory Social History Smoking Status: Unknown if ever smoked Hx Alcohol Use: No Hx Substance Use: No Preferred Language: Citizen Of [place] Communication Ability: Impaired Property Investor Required: No marital status: Current Living Situation: Rehab Other Information That Helps Us Care for You: No Feels Safe at Home: No Safety Concerns: Feels Safe At This Time Assistive Devices: Wheelchair Review of Systems Constitutional: no fever Gastrointestinal: + abdominal pain, + nausea and + vomiting Physical Exam Constitutional: + ill appearing Eyes: no conjunctival abnormality ENMT: Ears: no hearing impairment Neck: trachea midline Respiratory: normal respiratory effort; no respiratory distress and no labored breathing Cardiovascular: Rate/Rhythm: regular rate and regular rhythm Gastrointestinal (Abdomen): Abdomen is distended. There is significant tenderness with palpation to the right of the umbilicus. There are some slight rebound tenderness did not appreciate any masses or hernias on my exam Neurologic: Patient is nonverbal. She does move all 4 extremities. Results & Data ([facility]) Vital Signs (Past 12 Hours) Vital Signs Temp Pulse Pulse Resp BP BP Pulse Ox 05/12/22 18:57 37.5 C 108 H 18 139/87 92 05/12/22 15:05 37.3 C 94 H 16 120/81 93 O2 Del Method 05/12/22 18:57 Room Air 05/12/22 15:05 Room Air PG Care Time/CCT Total # of Minutes Spent Total Time Spent with Patient: Total time spent is greater than 50% in coordination of care (as documented) at patient's floor/unit and/or counseling patient: Coding Level of Care Code 65756 Inpt Consult Level 5 Diagnoses Small bowel obstruction K56.609
[2022-05-12] MEDS ORDERED: OPTIRAY 350 100ml IV ONE (20:15)
[2022-05-12] MEDS ORDERED: PIPERACILLIN/TAZOBACTAM 3.375 GM in DEXTROSE 5% 100 ML IV ONE (20:30)
--- NOTE | 2022-05-12 20:33 | CT Scan Report ---
CT OF THE ABDOMEN AND PELVIS WITH CONTRAST CLINICAL HISTORY: Abdominal pain. COMPARISON STUDY: CT of the abdomen and pelvis May 08, 2022. KUB performed earlier today. TECHNIQUE: Following IV administration of 85 mL of Optiray, axial images of the abdomen and pelvis we re obtained from the lung bases to the proximal femurs. Images were reviewed in the axial, sagittal, and coronal planes. IV contrast was administered without complication. Automated exposure control wa s utilized for the study. A dose lowering technique was utilized adhering to the principles of ALARA . CT DOSE: 995.20 mGy.cm FINDINGS: Tip of nasogastric tube is within the distal body of the stomach. No pneumatosis, free air or portal venous gas is present. There are no hepatic lesions. Mild biliary ductal dilatation is like ly related to cholecystectomy. The spleen, adrenal glands and pancreas are unremarkable. There is a 7 cm left renal cyst. Suspected smaller right renal cyst is present. There is no hydronephrosis. The e ntire small bowel is moderately dilated and fluid-filled. This was shown on prior exam. Note is made of persistent irregular mass-like thickening of the ileocecal valve and cecum with associated luminal narrowing of the cecum/proximal ascending colon shown best on axial image 284 of 536. This likely re flects the transition point. There are few prominent ileocolic lymph nodes. Index node on axial image 287 measures 1.4 x 0.7 cm. The appendix is not dilated. There is minimal mesenteric infiltration. No fluid collection is identified to suggest an abscess. Major vasculature is patent. There are no susp icious lesions within the visualized skeletal structures. IMPRESSION: 1. Irregular mass-like thickening of the ileocecal valve and cecum/proximal ascending colon. This fav ors a neoplasm such as colonic adenocarcinoma which results in a small bowel obstruction. GI consulta tion for consideration for colonoscopy is recommended. 2. Several prominent ileocolic lymph nodes. Marizol spread of disease cannot be excluded. 3. Tip of nasogastric tube within the distal body of the stomach. ACT 112: Negative or not required by law. Electronically signed by: Alejandro Dsouza M.D. 05/12/2022 8:31 PM
--- NOTE | 2022-05-12 21:01 | Communication Note ---
Date of Service: May 12, 2022 converting from PO Keppra 750mg q12 to IV Keppra 750mg q12 because of NPO. CrCl 45 noted (baseline 60s). Discussed w/ pharmacy. Ok to keep at 750mg q12 dose. changing npo to strict npo no meds. other PO meds ok to hold. tylenol and protonix made IV. no atorvastatin IV equivalent. cva hx noted. however, in setting of elevated lactate 3.6 and acute sbo, will prioritize the strict npo overnight shift UOP low. 225mL
[2022-05-12] MEDS: SODIUM CHLORIDE 0.9% 1000ML 1,000 ML IV SCH (21:32)
[2022-05-12] MEDS: levETIRAcetam 750 MG in 0.9 % SODIUM CHLORIDE 100 ML IV SCH (21:34)
[2022-05-12] MEDS: MELATONIN 3 MG TAB PO SCH (21:38)
[2022-05-12] MEDS: ATORVASTATIN 40 MG TAB PO SCH (21:38)
[2022-05-12] MEDS: ENOXAPARIN INJ 40 MG/0.4 ML SYR SQ SCH (21:43)
[2022-05-12] MEDS: ACETAMINOPHEN 1,000 MG/100 ML VIAL IV SCH (22:06)
[2022-05-13] MEDS: PIPERACILLIN/TAZOBACTAM 3.375 GM in DEXTROSE 5% 100 ML IV SCH ×3 (00:11→17:11)
[2022-05-13] MEDS: MoRPHine SULFATE 4 MG/ML 1 ML CARP\\VIAL IV PRN ×4 (00:16→16:21)
[2022-05-13] MEDS: SODIUM CHLORIDE 0.9% 1000ML 1,000 ML IV SCH ×2 (05:55→16:18)
--- NOTE | 2022-05-13 06:30 | Surgery Progress Note ---
Date of Service May 13, 2022 Assessment & Plan (1) Mass of colon: Plan: Mass appears to be causing some obstruction of the ileum I did discuss the fact she does have what appears to be a mass and that it would require removal to alleviate the current situation It appears she would agree to this I would try to discuss this with her and other medical teams involved Continue NG tube Admission and Anticipated Discharge Date Admission Date: May 08, 2022 Subjective Patient is awake and alert in no distress Complaining of minimal abdominal pain NG tube in place with significant output overnight Her CT scan does show evidence of a tumor likely in the cecum causing at least partial obstruction Review of Systems Review of Systems: All systems reviewed & are unremarkable except as noted in HPI & below Physical Exam Physical Exam: Patient's abdomen is mildly distended No peritoneal signs Constitutional: well nourished; no acute distress Eyes: + anicteric sclerae Respiratory: normal respiratory effort; no respiratory distress Cardiovascular: Rate/Rhythm: regular rhythm Gastrointestinal (Abdomen): See above Musculoskeletal: Head/Neck/Chest: head atraumatic Skin: no rashes, warm and dry Neurologic: awake Psychiatric: Orientation: alert Results & Data ([facility]) Vital Signs (Past 12 Hours) Vital Signs Temp Pulse Resp BP Pulse Ox O2 Del Method 05/12/22 22:27 36.9 C 93 H 16 116/75 91 Room Air 05/12/22 18:57 37.5 C 108 H 18 139/87 92 Room Air PG Care Time/CCT Total # of Minutes Spent Total Time Spent with Patient: Total time spent is greater than 50% in coordination of care (as documented) at patient's floor/unit and/or counseling patient: Coding Level of Care Code 02613 Inpt Consult Level 3 Diagnoses Mass of colon K63.89
[2022-05-13 06:38] LABS: Hematocrit (blood only) 30.3 % (34.1-44.9); Hemoglobin 9.4 g/dl (12.0-16.0); Mean Corpuscular Hemoglobin 28.5 pg (25.0-34.0); Mean Corpuscular Volume 91.8 fL (80.0-100.0); Mean Platelet Volume 8.7 fL (9.4-12.3); Platelet Count 394 K/uL (130-400); RDW Coefficient of Variation 14.3 % (11.5-14.5); RDW Standard Deviation 48.5 fL (36.4-46.3); White Blood Count 8.55 K/ul (4.8-10.8)
[2022-05-13 07:12] LABS: BUN Creatinine Ratio 6.3 (10-20); Creatinine Clr Calc Pharmacy 54.3 ml/min; Est GFR (African American) 67.4 ml/min; Est GFR (Non-African American) 58.2 ml/min; Potassium 3.1 mmol/L (3.5-5.1)
[2022-05-13] MEDS: ACETAMINOPHEN 1,000 MG/100 ML VIAL IV SCH ×2 (09:52→20:23)
[2022-05-13] MEDS: ASPIRIN 81 MG ECTAB PO SCH (09:53)
[2022-05-13] MEDS: DICLOFENAC SOD 1% GEL 100 GM TUBE EXT SCH ×4 (09:53→20:23)
[2022-05-13] MEDS: ESCITALOPRAM OXALATE 20 MG TAB PO SCH (09:53)
[2022-05-13] MEDS: GABAPENTIN 100 MG CAP PO SCH ×3 (09:53→20:23)
[2022-05-13] MEDS: BACLOFEN 10 MG TAB PO SCH ×3 (09:53→20:23)
[2022-05-13] MEDS: OXYBUTYNIN CHLORIDE XL 5 MG TABCR PO SCH (09:54)
[2022-05-13] MEDS: QUEtiapine FUMARATE 25 MG TABLET PO SCH ×2 (09:54→20:24)
[2022-05-13] MEDS: PANTOprazole 40 MG in SYRINGE 0 ML IV SCH (10:56)
[2022-05-13] MEDS: levETIRAcetam 750 MG in 0.9 % SODIUM CHLORIDE 100 ML IV SCH ×2 (10:56→21:31)
--- NOTE | 2022-05-13 12:29 | Anesthesiology Consultation ---
Date of Service May 13, 2022 Assessment & Plan (1) Encounter for pre-operative examination: Chart Review Chart Review: Acceptable Risk for Surgery History Surgery Operation Date: 05/14/22 08:20 Proposed Procedures p Right Colon Resection - Mitch Norris MD, FACS Height/Weight Height: 5 ft 6 in Weight: 81.647 kg Allergies Allergy/AdvReac Type Severity Reaction Status Date / Time adhesive tape Allergy Unknown ON CENTRE Verified 04/30/22 18:52 CARE MED LIST mepivacaine [From Carbocaine] Allergy Unknown ON CENTRE Verified 04/30/22 18:52 CARE MED LIST tetanus immune globulin Allergy Unknown ON CENTRE Verified 04/30/22 18:52 CARE MED LIST Medications Home Medications Medication Instructions Recorded Confirmed Last Taken acetaminophen 500 mg tablet 1,000 mg PO Q12H 04/30/22 05/08/22 05/07/22 20:30 (Tylenol Extra Strength) aspirin 81 mg chewable tablet 81 mg PO DAILY 04/30/22 05/08/22 05/07/22 atenolol 25 mg tablet 25 mg PO Q12 04/30/22 05/08/22 05/07/22 20:30 atorvastatin 80 mg tablet 80 mg PO HS 04/30/22 05/08/22 05/07/22 20:30 bacitracin 500 unit/gram topical 1 applic topical QPM 04/30/22 05/08/22 04/29/22 ointment baclofen 5 mg tablet 5 mg PO TID 04/30/22 05/08/22 05/08/22 12:30 calcium carbonate 300 mg (750 mg) 300 mg PO BID 04/30/22 05/08/22 05/08/22 11:30 chewable tablet (Tums Extra Strength Smoothies) dextromethorphan 20 mg-quinidine 1 cap PO BID 04/30/22 05/08/22 05/07/22 16:30 10 mg capsule diclofenac sodium 1 % topical gel 2 g topical QID 04/30/22 05/08/22 05/08/22 12:30 escitalopram oxalate 20 mg tablet 20 mg PO DAILY 04/30/22 05/08/22 05/07/22 (Lexapro) ferrous sulfate 325 mg (65 mg 325 mg PO DAILY 04/30/22 05/08/22 05/07/22 16:30 iron) tablet gabapentin 100 mg capsule 100 mg PO TID 04/30/22 05/08/22 05/08/22 14:30 hydrocortisone 1 % topical cream 1 applic topical Q6H PRN 04/30/22 05/08/22 Unknown (Preparation H Hydrocortisone) Hemorrhoids ibuprofen 200 mg tablet 400 mg PO Q6H PRN Pain 04/30/22 05/08/22 05/07/22 levetiracetam 750 mg tablet 750 mg PO Q12H 04/30/22 05/08/22 05/07/22 20:30 (Keppra) melatonin 3 mg tablet 3 mg PO HS 04/30/22 05/08/22 05/07/22 20:30 npjbdezp-lok-nzgr-FA-Ca carb-vit K 1 tab PO DAILY 04/30/22 05/08/22 05/07/22 18 mg iron-400 mcg-500 mg tablet ondansetron 4 mg disintegrating 4 mg PO Q6H PRN nausea and 04/30/22 05/08/22 05/07/22 tablet vomiting #14 tabs oxybutynin chloride 10 mg 10 mg PO DAILY 04/30/22 05/08/22 05/07/22 tablet,extended release 24 hr pantoprazole 40 mg tablet,delayed 40 mg PO DAILY 04/30/22 05/08/22 05/07/22 release Saccharomyces boulardii 250 mg 250 mg PO BID 05/08/22 05/08/22 05/08/22 08:30 capsule (Florastor) acetaminophen 325 mg tablet 650 mg PO Q6 PRN temp > 100 05/08/22 05/08/22 Unknown (Tylenol) promethazine 25 mg tablet 25 mg PO Q6H PRN Nausea And 05/08/22 05/08/22 05/07/22 Vomiting promethazine 25 mg/mL injection 25 mg IM Q6H PRN Nausea And 05/08/22 05/08/22 Unknown solution Vomiting quetiapine 25 mg tablet 25 mg PO Q12 05/08/22 05/08/22 05/07/22 20:30 vancomycin 125 mg capsule 125 mg PO Q6 05/08/22 05/08/22 05/08/22 12:00 1st dose Active Medications Generic Name Dose Route Start Last Admin Trade Name Freq PRN Reason Stop Dose Admin Acetaminophen 1,000 mg 05/08/22 21:44 05/12/22 21:33 Acetaminophen 500 Mg Tab PO 06/07/22 21:43 Not Given BID SUKHI Aspirin 81 mg 05/09/22 09:00 05/13/22 09:53 Aspirin 81 Mg Ectab PO 06/08/22 08:59 Not Given DAILY SUKHI Atorvastatin Calcium 80 mg 05/08/22 21:44 05/12/22 21:38 Atorvastatin 40 Mg Tab PO 06/07/22 21:43 Not Given HS SUKHI Baclofen 5 mg 05/08/22 21:44 05/13/22 09:53 Baclofen 10 Mg Tab PO 06/07/22 21:43 Not Given TID SUKHI Diclofenac Sodium 2 gm 05/08/22 21:44 05/13/22 09:53 Diclofenac Sod 1% Gel 100 Gm Tube EXT 06/07/22 21:43 2 gm QID SUKHI Administration Protocol Enoxaparin Sodium 40 mg 05/08/22 21:44 05/12/22 21:43 Enoxaparin Inj 40 Mg/0.4 Ml Syr SQ 06/07/22 21:43 40 mg HS SUKHI Administration Escitalopram Oxalate 20 mg 05/09/22 09:00 05/13/22 09:53 Escitalopram Oxalate 20 Mg Tab PO 06/08/22 08:59 Not Given DAILY SUKHI Gabapentin 100 mg 05/08/22 21:44 05/13/22 09:53 Gabapentin 100 Mg Cap PO 06/07/22 21:43 Not Given TID SUKHI Sodium Chloride 1,000 mls @ 100 mls/hr 05/12/22 19:45 05/13/22 05:55 Nss 1000ml IV 06/11/22 19:44 100 mls/hr .Q10H SUKHI Administration Piperacillin Sod/Tazobactam 115 mls @ 28.75 mls/hr 05/13/22 01:00 05/13/22 11:16 Sod 3.375 gm/ Dextrose IV 05/23/22 00:59 28.8 mls/hr Q8H SUKHI Administration Protocol Levetiracetam 750 mg/ Sodium 107.5 mls @ 420 mls/hr 05/12/22 21:00 05/13/22 11:18 Chloride IV 06/11/22 20:59 Infused Q12H SUKHI Infusion Pantoprazole Sodium 40 mg/ 10 mls @ 5 mls/min 05/13/22 09:00 05/13/22 10:56 Syringe IV 06/12/22 08:59 5 mls/min QAM SUKHI Administration Acetaminophen 1,000 mg in 100 mls @ 400 mls/hr 05/12/22 21:30 05/13/22 10:40 Ofirmev IV 05/15/22 21:29 Infused BID SUKIH Infusion Levetiracetam 750 mg 05/08/22 21:44 05/12/22 08:18 Levetiracetam 250 Mg Tab PO 06/07/22 21:43 750 mg Q12H SUKHI Administration Melatonin 3 mg 05/08/22 21:44 05/12/22 21:38 Melatonin 3 Mg Tab PO 06/07/22 21:43 Not Given HS SUKHI Morphine Sulfate 4 mg 05/08/22 21:44 05/13/22 10:05 Morphine Sulfate 4 Mg/Ml 1 Ml Carp\Vial IV 05/22/22 21:43 4 mg Q3H PRN Administration Pain (6,7,8,9,10) Ondansetron HCl 8 mg 05/12/22 17:00 05/12/22 17:38 Ondansetron 8mg Od Tab PO 06/11/22 16:59 8 mg Q4H PRN Administration Nausea And Vomiting Ondansetron HCl 4 mg 05/12/22 19:03 05/12/22 19:37 Ondansetron Inj 2 Mg/Ml 2 Ml Vial IV 06/11/22 19:02 4 mg Q4H PRN Administration Nausea Oxybutynin Chloride 10 mg 05/09/22 09:00 05/13/22 09:54 Oxybutynin Chloride Xl 5 Mg Tabcr PO 06/08/22 08:59 Not Given DAILY SUKHI Pantoprazole Sodium 40 mg 05/09/22 09:00 05/12/22 08:18 Pantoprazole 40 Mg Tab PO 06/08/22 08:59 40 mg DAILY SUKHI Administration Quetiapine Fumarate 25 mg 05/08/22 21:44 05/13/22 09:54 Quetiapine Fumarate 25 Mg Tablet PO 06/07/22 21:43 Not Given Q12 SUKHI Past Medical History Medical History (Updated 05/13/22 @ 12:29 by Shakeel Aranda MD) 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) Breast cancer CKD (chronic kidney disease) GERD (gastroesophageal reflux disease) Hypertension Multi-infarct dementia Past Family History Family History Other Family history non-contributory Past Surgical History Surgical History (Updated 05/13/22 @ 12:27 by Shakeel Aranda MD) No significant past surgical history Social History Smoking Status: Unknown if ever smoked Hx Alcohol Use: No Hx Substance Use: No Physical Exam Vital Signs Last Vital Signs Temp 37.1 C 05/13/22 07:06 Pulse 84 05/13/22 07:06 Resp 18 05/13/22 07:06 BP 150/84 H 05/13/22 07:06 Pulse Ox 92 05/13/22 07:06 O2 Del Method 05/13/22 09:00 Testing Laboratory Results 05/13/22 05:57 05/13/22 05:57 Urine Color Yellow 05/08/22 16:40 Urine Appearance Clear (Clear) 05/08/22 16:40 Urine pH 5.5 (4.5-7.5) 05/08/22 16:40 Ur Specific [place] 1.014 (1.000-1.030) 05/08/22 16:40 Urine Protein Negative (Negative) 05/08/22 16:40 Urine Glucose (UA) Negative (Negative) 05/08/22 16:40 Urine Ketones Negative (Negative) 05/08/22 16:40 Urine Nitrite Negative (Negative) 05/08/22 16:40 Ur Leukocyte Esterase Trace (Negative) H 05/08/22 16:40 Urine WBC (Auto) 1-5 /hpf (0-5) 05/08/22 16:40 Urine RBC (Auto) 0-4 /hpf (0-4) 05/08/22 16:40 U Hyaline Cast (Auto) 1-5 /lpf (0-5) 05/08/22 16:40 U Epithel Cells (Auto) 10-20 /lpf (0-5) H 05/08/22 16:40 Urine Bacteria (Auto) Negative (Negative) 05/08/22 16:40 Electrocardiogram Date: 05/10/22 Findings: + NSR @ (87) and + poor R wave progression
--- NOTE | 2022-05-13 13:06 | Hospitalist Progress Note ---
Date of Service May 13, 2022 Assessment & Plan (1) Small bowel obstruction: Plan: KUB and CT a/p on 05/12 after worsening distension and pain showed SBO. Radiology concerned about an ileocecal mass. - NG tube with substantial output. - Continue Zosyn - Surgery following - Plan for surgery tomorrow. Per Dr. Norris, patient was amenable. also amenable. Of note, in discussion with long-term care providers, patient appears to be capable of making her decisions. She has good receptive understanding and is able to respond appropriately to yes/no questions. So, if she agreed to the surgery with the surgical team while she was awake and able to comprehend, I do think she has capability to make that decision. (2) GERD (gastroesophageal reflux disease): Plan: Chronic. 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 Patient is non-verbal (only says "bee" to me). She is able to answer yes or no questions by shaking her head. 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 Just has to answer in yes/no form due to her aphasia. - Continue atorvastatin 80mg PO daily for secondary prevention as able. - Continue ASA 81mg po daily able. (4) CKD (chronic kidney disease): Plan: Baseline Cr ~0.75 - 0.85, CKD Stage II. At baseline. - Avoid nephrotoxic agents - Renal dosing where needed for CrCl ~60 - 70 mL/min. (5) Hypertension: Plan: Blood pressure is 150/80. - Hold atenolol - Monitor BP (6) Urinary retention: Plan: Chong catheter in place. - Monitor UOP - Continue oxybutynin (7) Seizure disorder: Plan: Chronic. - Continue Keppra 750mg po BID as able. Presently on IV Keppra while NPO. Plan DVT ppx: Lovenox 40 mg SQ HS Admission and Anticipated Discharge Date Admission Date: May 08, 2022 Subjective Seen late in the morning after morphine given. Patient is drowsy, but able to open eyes. Not responding to me at this point. However, previously, while she has trouble speaking, she responds appropriately to questions if you can say yes/no answers. Review of Systems Review of Systems: Unobtainable due to reduced consciousness Physical Exam Constitutional: WD/WN, vitals as above Eyes: EOM intact bilaterally; no conjunctival abnormality ENMT: external ear and nose normal, oropharynx normal Neck: trachea midline, no thyromegaly normal visual inspection Respiratory: normal respiratory effort, lungs clear to auscultation no respiratory distress Cardiovascular: RRR, no murmur, no edema Gastrointestinal (Abdomen): Inspection/Auscultation: abdomen normal to inspection; abdomen not distended Skin: no rashes, warm and dry Neurologic: awake Motor/Sensory: + abnormal movement (Right side without movement.) Psychiatric: Orientation: alert and cooperative Affect: + tearful affect Results & Data Results & Data ([facility]) Vital Signs (Past 12 Hours) Vital Signs Temp Pulse Resp BP Pulse Ox O2 Del Method 05/13/22 09:00 Room Air 05/13/22 07:06 37.1 C 84 18 150/84 H 92 Room Air PG Care Time/CCT Total # of Minutes Spent Total Time Spent with Patient: Total time spent is greater than 50% in coordination of care (as documented) at patient's floor/unit and/or counseling patient: Coding Level of Care Code 26822 Subseq Hosp Care Lvl 3 Diagnoses Small bowel obstruction K56.609 GERD (gastroesophageal reflux disease) K21.9 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
--- NOTE | 2022-05-13 13:29 | Gastroenterology Progress Note ---
Date of Service May 13, 2022 Assessment & Plan (1) Small bowel obstruction: Plan: Plans for surgery tomorrow. Will follow with interest Admission and Anticipated Discharge Date Admission Date: May 08, 2022 Subjective Surgical plans noted. CT more definitive this time Physical Exam Constitutional: WD/WN, vitals as above Results & Data ([facility]) Vital Signs (Past 12 Hours) Vital Signs Temp Pulse Resp BP Pulse Ox O2 Del Method 05/13/22 09:00 Room Air 05/13/22 07:06 37.1 C 84 18 150/84 H 92 Room Air Diagnostic Findings KUB X-Ray 05/12/22 19:33 KUB CLINICAL HISTORY: NGT placement COMPARISON STUDY: KUB performed earlier today. FINDINGS: Tip of nasogastric tube projects over the gastric antrum. Gastric distention has improved. Small bowel dilatation persists. This is partially imaged on this exam. The cholecystectomy clips. Left basilar airspace opacity is present. IMPRESSION: 1. Appropriately positioned nasogastric tube. Resolution of gastric distention. 2. Persistent small bowel dilatation suggestive of a small bowel obstruction. 3. Left basilar airspace opacity. ACT 112: Negative or not required by law. Electronically signed by: Alejandro Dsouza M.D. 05/12/2022 7:53 PM Abdomen/Pelvis CT 05/12/22 19:55 CT OF THE ABDOMEN AND PELVIS WITH CONTRAST CLINICAL HISTORY: Abdominal pain. COMPARISON STUDY: CT of the abdomen and pelvis May 08, 2022. KUB performed earlier today. TECHNIQUE: Following IV administration of 85 mL of Optiray, axial images of the abdomen and pelvis were obtained from the lung bases to the proximal femurs. Images were reviewed in the axial, sagittal, and coronal planes. IV contrast was administered without complication. Automated exposure control was utilized for the study. A dose lowering technique was utilized adhering to the principles of ALARA. CT DOSE: 995.20 mGy.cm FINDINGS: Tip of nasogastric tube is within the distal body of the stomach. No pneumatosis, free air or portal venous gas is present. There are no hepatic lesions. Mild biliary ductal dilatation is likely related to cholecystectomy. The spleen, adrenal glands and pancreas are unremarkable. There is a 7 cm left renal cyst. Suspected smaller right renal cyst is present. There is no hydronephrosis. The entire small bowel is moderately dilated and fluid-filled. This was shown on prior exam. Note is made of persistent irregular mass-like thickening of the ileocecal valve and cecum with associated luminal narrowing of the cecum/proximal ascending colon shown best on axial image 284 of 536. This likely reflects the transition point. There are few prominent ileocolic lymph nodes. Index node on axial image 287 measures 1.4 x 0.7 cm. The appendix is not dilated. There is minimal mesenteric infiltration. No fluid collection is identified to suggest an abscess. Major vasculature is patent. There are no suspicious lesions within the visualized skeletal structures. IMPRESSION: 1. Irregular mass-like thickening of the ileocecal valve and cecum/proximal ascending colon. This favors a neoplasm such as colonic adenocarcinoma which results in a small bowel obstruction. GI consultation for consideration for colonoscopy is recommended. 2. Several prominent ileocolic lymph nodes. Marizol spread of disease cannot be excluded. 3. Tip of nasogastric tube within the distal body of the stomach. ACT 112: Negative or not required by law. Electronically signed by: Alejandro Dsouza M.D. 05/12/2022 8:31 PM
[2022-05-13] MEDS ORDERED: MoRPHine SULFATE 4 MG/ML 1 ML CARP\\VIAL IV STA (14:45)
[2022-05-13] MEDS: LORazepam 0.5 MG in SYRINGE 0 ML IV PRN (15:05)
--- NOTE | 2022-05-13 15:48 | XRay Report ---
KUB HISTORY: Increased abdominal pain COMPARISON: KUB 05/12/2022. FINDINGS: Nasogastric tube terminates in the distal stomach. Dilated gas-filled loops of small bowel have improved. There is gas and stool remaining within the colon. Prior cholecystectomy. No renal ca lculi. No ureteral calculi. No pneumoperitoneum or pneumatosis. IMPRESSION: 1. Nasogastric tube terminates in the distal stomach. 2. Interval improvement of the dilated gas-filled loops of small bowel compared to the prior study. ACT 112: Negative or not required by law. Electronically signed by: Hair Hodge M.D. 05/13/2022 3:46 PM
[2022-05-13] MEDS ORDERED: LORazepam 0.5 MG in SYRINGE 0 ML IV STA (16:35)
[2022-05-13] MEDS: ATORVASTATIN 40 MG TAB PO SCH (20:23)
[2022-05-13] MEDS: MELATONIN 3 MG TAB PO SCH (20:24)
[2022-05-13] MEDS: ENOXAPARIN INJ 40 MG/0.4 ML SYR SQ SCH (20:29)
[2022-05-14] MEDS: PIPERACILLIN/TAZOBACTAM 3.375 GM in DEXTROSE 5% 100 ML IV SCH ×3 (00:17→18:06)
[2022-05-14] MEDS: SODIUM CHLORIDE 0.9% 1000ML 1,000 ML IV SCH ×2 (02:43→16:13)
[2022-05-14] MEDS: MoRPHine SULFATE 4 MG/ML 1 ML CARP\\VIAL IV PRN ×4 (02:45→17:32)
[2022-05-14 06:45] LABS: Hemoglobin 9.5 g/dl (12.0-16.0); Mean Corpuscular Hgb Conc 30.6 g/dL (32.0-36.0); Mean Corpuscular Volume 94.5 fL (80.0-100.0); Mean Platelet Volume 8.5 fL (9.4-12.3); Platelet Count 374 K/uL (130-400); RDW Coefficient of Variation 14.3 % (11.5-14.5); RDW Standard Deviation 48.9 fL (36.4-46.3); Red Blood Count 3.28 M/uL (3.93-5.22); White Blood Count 8.32 K/ul (4.8-10.8)
--- NOTE | 2022-05-14 06:59 | History & Physical Bridge Note ---
Date of Service May 14, 2022 History & Physical Bridge Note I have examined the patient, reviewed the History & Physical and in the interval since the performance of the History & Physical I have noted the following changes of clinical significance: no changes noted Also see progress note
--- NOTE | 2022-05-14 07:01 | Surgery Progress Note ---
Date of Service May 14, 2022 Assessment & Plan (1) Mass of colon: Plan: Patient with a colon mass most likely causing partial obstruction and pain She has refused a colonoscopy-I believe surgery is necessary regardless I have discussed this with the at length, he agrees to proceed with surgery Only option would be essentially NG tube and comfort measures-I do not think she would recover 4 OR this morning Admission and Anticipated Discharge Date Admission Date: May 08, 2022 Results & Data ([facility]) Vital Signs (Past 12 Hours) Vital Signs Temp Pulse Resp BP Pulse Ox O2 Del Method 05/13/22 19:45 Room Air 05/13/22 22:55 36.8 C 69 16 129/71 92 Room Air PG Care Time/CCT Total # of Minutes Spent Total Time Spent with Patient: Total time spent is greater than 50% in coordination of care (as documented) at patient's floor/unit and/or counseling patient: Coding Level of Care Code None Diagnoses Mass of colon K63.89
[2022-05-14 07:24] LABS: BUN Creatinine Ratio 7.4 (10-20); Calcium 8.4 mg/dl (8.5-10.1); Creatinine Clr Calc Pharmacy 63.7 ml/min; Est GFR (African American) 81.8 ml/min; Est GFR (Non-African American) 70.5 ml/min; Potassium 3.3 mmol/L (3.5-5.1)
[2022-05-14] MEDS ORDERED: PROPOFOL IV EMULSION 10 MG/ML 20 ML VIAL IV ONE (07:38)
[2022-05-14] MEDS ORDERED: GLYCOPYRROLATE 0.2 MG/ML VIAL ONE (07:38)
[2022-05-14] MEDS ORDERED: ONDANSETRON INJ 2 MG/ML 2 ML VIAL ONE (07:38)
[2022-05-14] MEDS ORDERED: NEOSTIGMINE METHYLSULFATE 1 MG/ML 10ML VIAL ONE (07:38)
[2022-05-14] MEDS ORDERED: DEXAMETHASONE SOD INJ 4 MG/ML VIAL ONE (07:38)
[2022-05-14] MEDS ORDERED: MIDAZOLAM HCL 1 MG/ML 2ML VIAL ONE (07:39)
[2022-05-14] MEDS ORDERED: fentaNYL citrate 100 MCG/2 ML VIAL ONE ×2 (07:39)
[2022-05-14] MEDS ORDERED: ROCURONIUM BROMIDE 10 MG/ML 5 ML VIAL IV ONE (07:41)
[2022-05-14] MEDS ORDERED: LIDOCAINE 2% MPF LOCAL 5 ML VIAL INFIL ONE (07:41)
[2022-05-14] MEDS ORDERED: fentaNYL citrate 100 MCG/2 ML VIAL IV PRN ×2 (08:14→08:16)
[2022-05-14] MEDS: ONDANSETRON INJ 2 MG/ML 2 ML VIAL IV PRN ×2 (08:18→20:14)
[2022-05-14] MEDS ORDERED: BUPIVACAINE 0.5 % 5 MG/1 ML MPF 30ML VIAL ONE (08:38)
[2022-05-14] MEDS: levETIRAcetam 750 MG in 0.9 % SODIUM CHLORIDE 100 ML IV SCH ×2 (09:08→21:26)
[2022-05-14] MEDS ORDERED: cefOXitin 2,000 MG in DEXTROSE 5% 50 ML IV ONE (09:10)
[2022-05-14] MEDS ORDERED: SUGAMMADEX SODIUM 200 MG/2 ML VIAL IV ONE (09:26)
[2022-05-14] MEDS ORDERED: SODIUM CHLORIDE 0.9% INJ 10 ML VIAL ONE (09:42)
[2022-05-14] MEDS ORDERED: ETOMIDATE 2 MG/ML 20 ML VIAL IV ONE (09:42)
[2022-05-14] MEDS ORDERED: ePHEDrine sulfate 50 MG/ML SYR ONE (10:28)
[2022-05-14] MEDS ORDERED: ACETAMINOPHEN 1,000 MG/100 ML VIAL IV ONE (10:53)
--- NOTE | 2022-05-14 10:53 | Post Operative Brief Note ---
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 Right Colon Drains Chong Catheter
[2022-05-14] MEDS ORDERED: ATROPINE SULFATE 0.1 MG/ML 10ML SYR IV PRN (11:11)
[2022-05-14] MEDS ORDERED: KETOROLAC 30 MG/ML VIAL IV PRN (11:11)
[2022-05-14] MEDS ORDERED: PROMETHAZINE HCL 6.25 MG in SODIUM CHLORIDE 0.9% 50 ML IV PRN (11:11)
[2022-05-14] MEDS ORDERED: LABETALOL HCL IV 5 MG/ML 20ML IV PRN (11:11)
[2022-05-14] MEDS ORDERED: ONDANSETRON INJ 2 MG/ML 2 ML VIAL IV PRN (11:11)
[2022-05-14] MEDS ORDERED: HYDROmorphone INJ 1 MG/ML SYRINGE ONE (11:16)
[2022-05-14] MEDS: HYDROmorphone INJ 1 MG/ML SYRINGE IV PRN ×8 (11:16→14:03)
--- NOTE | 2022-05-14 11:27 | Operative Report (OR) ---
DATE OF OPERATION: 05/14/2022. NAME OF OPERATION: Laparotomy with right colectomy and enterolysis. PREOPERATIVE DIAGNOSIS: Right colon mass with partial bowel obstruction. POSTOPERATIVE DIAGNOSIS: Right colon mass with partial bowel obstruction with severe adhesions. STAFF SURGEON: Mitch Norris MD SHOE FITTER: Haydee Garcia PA-C ANESTHESIA: General. DESCRIPTION OF PROCEDURE: The patient was brought in to the operating room and placed on the operati ng table in supine position. She had a Chong catheter, pneumatic stockings, and nasogastric tube in place. My engineer third assistant helped with prepping, draping, colon resection, and closure of the wound. A tra nsverse incision was made above the umbilicus on the right side, carrying dissection down into the ab domen. It was evident the patient had a large cecal mass. It did not appear to be perforated, howev er, there were significant adhesions around the cecum as well as severe adhesions of the appendix and ileum in the right lower quadrant. With mild difficulty, these adhesions were taken down. The ileu m and right colon and appendix were all mobilized. The colon was transected proximal to the hepatic f lexure using a LESLY 80 stapler. The ileum was transected using a LESLY 80 stapler. Mesocolon and ileal mesentery transected using 2-0 silk suture, 0 chromic suture, and the LigaSure. At this point, the ends of the colon and ileum were oversewn using 3-0 silk suture at the staple line. A [id number] a nastomosis was approached. The mesenteric defect was closed using 0 chromic suture. A [id number]-[id number] anastomosis was performed using the LESLY 80 stapler with the enteric ____ closed handsewn in two layer s, 2-0 chromic, and then imbricated 3-0 silk suture. Suture was placed at the crotch of the staple l ine. The site was then irrigated. Hemostasis was maintained. The posterior fascia and peritoneum r eapproximated using running #1 chromic suture. Anterior fascia reapproximated using running and inte rrupted #1 PDS suture. A 5/8-inch [place] drain placed in the subcutaneous space, secured to the ski n using 3-0 nylon suture. Skin reapproximated using alicia. Transferred to recovery room in stable condition. Attempting to extubate the patient. Job ID: [id number]
--- NOTE | 2022-05-14 12:35 | Anesthesiology Progress Note ---
Date of Service May 14, 2022 Anesthesia Post Procedure Vital Signs Vital Signs: Temp Pulse Pulse Pulse Resp BP BP 05/14/22 12:30 108 H 14 150/77 H 05/14/22 12:15 105 H 12 142/76 H 05/14/22 12:00 104 H 14 138/78 05/14/22 11:30 97 H 15 151/70 H 05/14/22 11:20 99 H 13 146/70 H 05/14/22 11:50 36.8 C 103 H 14 147/73 H 05/14/22 11:40 99 H 14 150/72 H 05/14/22 11:10 98 H 18 147/68 H 05/14/22 11:03 36.4 C L 99 H 16 135/80 05/14/22 07:33 36.4 C L 91 H 16 170/90 H 05/13/22 19:45 05/13/22 22:55 36.8 C 69 16 129/71 05/13/22 15:51 36.5 C 74 14 128/80 Pulse Ox O2 Del Method O2 Flow Rate 05/14/22 12:30 96 Oxymask 4 05/14/22 12:15 97 Oxymask 4 05/14/22 12:00 96 Oxymask 4 05/14/22 11:30 98 Oxymask 6 05/14/22 11:20 98 Oxymask 6 05/14/22 11:50 97 Oxymask 4 05/14/22 11:40 96 Oxymask 4 05/14/22 11:10 98 Oxymask 10 05/14/22 11:03 95 Oxymask 10 05/14/22 07:33 93 Room Air 05/13/22 19:45 Room Air 05/13/22 22:55 92 Room Air 05/13/22 15:51 97 Room Air Pain Intensity Generalized: Pain Intensity: 0 Transfer of Care Handoff Completed per policy Notes Mental Status: alert / awake / arousable Patient Amnestic to Procedure: Yes Nausea / Vomiting: adequately controlled Pain: adequately controlled Airway Patency, RR, SpO2: stable & adequate BP & HR: stable & adequate Hydration State: stable & adequate Anesthetic Complications: no major complications apparent
[2022-05-14] MEDS: PANTOprazole 40 MG in SYRINGE 0 ML IV SCH (16:12)
[2022-05-14] MEDS: DICLOFENAC SOD 1% GEL 100 GM TUBE EXT SCH ×4 (16:12→21:26)
[2022-05-14] MEDS: ACETAMINOPHEN 1,000 MG/100 ML VIAL IV SCH (16:15)
[2022-05-14] MEDS: GABAPENTIN 100 MG CAP PO SCH ×2 (16:16→16:18)
[2022-05-14] MEDS: ESCITALOPRAM OXALATE 20 MG TAB PO SCH (16:16)
[2022-05-14] MEDS: QUEtiapine FUMARATE 25 MG TABLET PO SCH (16:16)
[2022-05-14] MEDS: OXYBUTYNIN CHLORIDE XL 5 MG TABCR PO SCH (16:16)
[2022-05-14] MEDS: ASPIRIN 81 MG ECTAB PO SCH (16:16)
[2022-05-14] MEDS: BACLOFEN 10 MG TAB PO SCH ×2 (16:16→16:18)
--- NOTE | 2022-05-14 16:40 | Hospitalist Progress Note ---
Date of Service May 14, 2022 Assessment & Plan (1) Small bowel obstruction: Plan: KUB and CT a/p on 05/12 after worsening distension and pain showed SBO. Radiology concerned about an ileocecal mass. - NG tube with substantial output. - Continue Zosyn - Surgery following - S/p ex lap with right hemicolectomy and anastomosis with Dr. Norris on 05/14. Seen after surgery. Appears comfortable at this time. (2) GERD (gastroesophageal reflux disease): Plan: Chronic. 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 Patient is non-verbal (only says "bee" to me). She is able to answer yes or no questions by shaking her head. 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 Just has to answer in yes/no form due to her aphasia. - Continue atorvastatin 80mg PO daily for secondary prevention as able. - Continue ASA 81mg po daily able. (4) CKD (chronic kidney disease): Plan: Baseline Cr ~0.75 - 0.85, CKD Stage II. At baseline. - Avoid nephrotoxic agents - Renal dosing where needed for CrCl ~60 - 70 mL/min. (5) Hypertension: Plan: Blood pressure is 150/80. - Hold atenolol - Monitor BP (6) Urinary retention: Plan: Chong catheter in place. - Monitor UOP - Continue oxybutynin (7) Seizure disorder: Plan: Chronic. - Continue Keppra 750mg po BID as able. Presently on IV Keppra while NPO. Plan DVT ppx: Lovenox 40 mg SQ HS Admission and Anticipated Discharge Date Admission Date: May 08, 2022 Subjective Sedated after surgery. Vitals stable. No acute distress. Review of Systems Review of Systems: Unobtainable due to cognitive status and Unobtainable due to reduced consciousness Physical Exam Constitutional: WD/WN, vitals as above Eyes: EOM intact bilaterally; no conjunctival abnormality ENMT: external ear and nose normal, oropharynx normal Neck: trachea midline, no thyromegaly normal visual inspection Respiratory: normal respiratory effort, lungs clear to auscultation no respiratory distress Cardiovascular: RRR, no murmur, no edema Gastrointestinal (Abdomen): Inspection/Auscultation: + abdomen abnormal to inspection (Surgical incision) and abdomen not distended Skin: no rashes, warm and dry Neurologic: + not awake Motor/Sensory: + abnormal movement (Right side without movement.) Psychiatric: Orientation: cooperative; + not alert Results & Data Results & Data ([facility]) Vital Signs (Past 12 Hours) Vital Signs Temp Pulse Pulse Pulse Resp BP BP 05/14/22 16:11 103 H 15 149/81 H 05/14/22 16:20 37.2 C 05/14/22 15:30 101 H 12 145/82 H 05/14/22 14:30 109 H 14 134/79 05/14/22 14:00 105 H 15 126/71 05/14/22 13:30 110 H 36 H 138/73 05/14/22 13:00 105 H 12 124/62 05/14/22 12:45 104 H 14 121/63 05/14/22 12:30 108 H 14 150/77 H 05/14/22 12:15 105 H 12 142/76 H 05/14/22 12:00 104 H 14 138/78 05/14/22 11:30 97 H 15 151/70 H 05/14/22 11:20 99 H 13 146/70 H 05/14/22 11:50 36.8 C 103 H 14 147/73 H 05/14/22 11:40 99 H 14 150/72 H 05/14/22 11:10 98 H 18 147/68 H 05/14/22 11:03 36.4 C L 99 H 16 135/80 05/14/22 07:33 36.4 C L 91 H 16 BP Pulse Ox O2 Del Method O2 Flow Rate 05/14/22 16:11 96 05/14/22 16:20 05/14/22 15:30 96 Nasal Cannula 4 05/14/22 14:30 96 Nasal Cannula 4 05/14/22 14:00 95 Nasal Cannula 4 05/14/22 13:30 93 Nasal Cannula 2 05/14/22 13:00 96 Nasal Cannula 2 05/14/22 12:45 91 Room Air 05/14/22 12:30 96 Oxymask 4 05/14/22 12:15 97 Oxymask 4 05/14/22 12:00 96 Oxymask 4 05/14/22 11:30 98 Oxymask 6 05/14/22 11:20 98 Oxymask 6 05/14/22 11:50 97 Oxymask 4 05/14/22 11:40 96 Oxymask 4 05/14/22 11:10 98 Oxymask 10 05/14/22 11:03 95 Oxymask 10 05/14/22 07:33 170/90 H 93 Room Air PG Care Time/CCT Total # of Minutes Spent Total Time Spent with Patient: Total time spent is greater than 50% in coordination of care (as documented) at patient's floor/unit and/or counseling patient: Coding Level of Care Code 96320 Subseq Hosp Care Lvl 2 Diagnoses Small bowel obstruction K56.609 GERD (gastroesophageal reflux disease) K21.9 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
--- NOTE | 2022-05-14 16:54 | Critical Care Consultation ---
Date of Consultation May 14, 2022 Assessment & Plan (1) S/P right hemicolectomy: Reason Critically Ill: 77-year-old female postoperative day 0 from right hemicolectomy for cecal mass PLAN: Neuro: History seizure disorder -Keppra 750 mg every 12 hours IV Analgesia -Morphine Vascular dementia CV: Hypertension -Atenolol 25 mg twice daily currently on hold Fluids/Renal: Chronic kidney disease stage II -Normosol at 125 ID: Currently receiving Zosyn -Reviewed op note, no evidence of perforation -Consider discontinuation in next 24 hours GI/Nutrition: Cecal mass causing small bowel obstruction -Postop day 0 Hyperlipidemia -Atorvastatin 80 mg currently on hold Heme: Anemia: Appears to be at baseline DVT prophylaxis: Heparin 5000 units twice daily Endocrine: ICU hyperglycemia protocol Vascular access: Peripheral IVs Code Status: DNR in event of cardiac arrest Disposition: ICU (2) Ileitis: (3) Abdominal pain: (4) 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 In the emergency department she was diagnosed with ileitis of unclear etiology. Through her hospital course she developed a small bowel obstruction and was further discovered to have a cecal mass likely causing the obstruction. Surgery was felt to be the only option to resolve the small bowel obstruction otherwise continuous NG suctioning and comfort measures. Family opted to proceed with hemicolectomy. Patient underwent right hemicolectomy with primary anastomosis with general surgery. Yunior morales was able to be extubated postoperatively. During my evaluation it appears she is able to understand conversation and responds with shaking her head, this appears to documentation to be her primary method of communication. She is denying abdominal pain and chest pain at this time. Allergies Allergy/AdvReac Type Severity Reaction Status Date / Time adhesive tape Allergy Unknown ON CENTRE Verified 04/30/22 18:52 CARE MED LIST mepivacaine [From Carbocaine] Allergy Unknown ON CENTRE Verified 04/30/22 18:52 CARE MED LIST tetanus immune globulin Allergy Unknown ON CENTRE Verified 04/30/22 18:52 CARE MED LIST Home Medications Medication Instructions Recorded Confirmed Type acetaminophen 500 mg tablet 1,000 mg PO Q12H 04/30/22 05/08/22 History (Tylenol Extra Strength) aspirin 81 mg chewable tablet 81 mg PO DAILY 04/30/22 05/08/22 History atenolol 25 mg tablet 25 mg PO Q12 04/30/22 05/08/22 History atorvastatin 80 mg tablet 80 mg PO HS 04/30/22 05/08/22 History bacitracin 500 unit/gram topical 1 applic topical QPM 04/30/22 05/08/22 History ointment baclofen 5 mg tablet 5 mg PO TID 04/30/22 05/08/22 History calcium carbonate 300 mg (750 mg) 300 mg PO BID 04/30/22 05/08/22 History chewable tablet (Tums Extra Strength Smoothies) dextromethorphan 20 mg-quinidine 1 cap PO BID 04/30/22 05/08/22 History 10 mg capsule diclofenac sodium 1 % topical gel 2 g topical QID 04/30/22 05/08/22 History escitalopram oxalate 20 mg tablet 20 mg PO DAILY 04/30/22 05/08/22 History (Lexapro) ferrous sulfate 325 mg (65 mg 325 mg PO DAILY 04/30/22 05/08/22 History iron) tablet gabapentin 100 mg capsule 100 mg PO TID 04/30/22 05/08/22 History hydrocortisone 1 % topical cream 1 applic topical Q6H PRN 04/30/22 05/08/22 History (Preparation H Hydrocortisone) Hemorrhoids ibuprofen 200 mg tablet 400 mg PO Q6H PRN Pain 04/30/22 05/08/22 History levetiracetam 750 mg tablet 750 mg PO Q12H 04/30/22 05/08/22 History (Keppra) melatonin 3 mg tablet 3 mg PO HS 04/30/22 05/08/22 History okbsohqz-joi-whsl-FA-Ca carb-vit K 1 tab PO DAILY 04/30/22 05/08/22 History 18 mg iron-400 mcg-500 mg tablet ondansetron 4 mg disintegrating 4 mg PO Q6H PRN nausea and 04/30/22 05/08/22 Rx tablet vomiting #14 tabs oxybutynin chloride 10 mg 10 mg PO DAILY 04/30/22 05/08/22 History tablet,extended release 24 hr pantoprazole 40 mg tablet,delayed 40 mg PO DAILY 04/30/22 05/08/22 History release Saccharomyces boulardii 250 mg 250 mg PO BID 05/08/22 05/08/22 History capsule (Florastor) acetaminophen 325 mg tablet 650 mg PO Q6 PRN temp > 100 05/08/22 05/08/22 History (Tylenol) promethazine 25 mg tablet 25 mg PO Q6H PRN Nausea And 05/08/22 05/08/22 History Vomiting promethazine 25 mg/mL injection 25 mg IM Q6H PRN Nausea And 05/08/22 05/08/22 History solution Vomiting quetiapine 25 mg tablet 25 mg PO Q12 05/08/22 05/08/22 History vancomycin 125 mg capsule 125 mg PO Q6 05/08/22 05/08/22 History Patient History Medical History Anemia 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 S/P laparoscopic colectomy (05/14/22) Laparotomy with right colectomy and enterolysis Dr. Norris Family History Other Family history non-contributory Social History Smoking Status: Unknown if ever smoked Hx Alcohol Use: No Hx Substance Use: No Preferred Language: Pakistani Communication Ability: Impaired Product Delivery Specialist Required: No marital status: Current Living Situation: Rehab Other Information That Helps Us Care for You: No Feels Safe at Home: No Safety Concerns: Feels Safe At This Time Assistive Devices: Wheelchair Review of Systems Review of Systems: Unable to be obtained secondary to expressive aphasia Physical Exam Physical Exam: General: Alert. nontoxic. Skin: Warm, dry, Head: Atraumatic Ears, nose, mouth and throat: airway patent, NG tube in naris Cardiovascular: Normal peripheral perfusion Respiratory: no respiratory distress Gastrointestinal: dressing in place: No shadowing, no gross distention, no obvious hepatosplenomegaly. Musculoskeletal: No deformity Results & Data Results & Data ([facility]) Vital Signs (Past 12 Hours) Vital Signs Temp Pulse Pulse Pulse Resp BP BP 05/14/22 16:11 103 H 15 149/81 H 05/14/22 16:20 37.2 C 05/14/22 15:30 101 H 12 145/82 H 05/14/22 14:30 109 H 14 134/79 05/14/22 14:00 105 H 15 126/71 05/14/22 13:30 110 H 36 H 138/73 05/14/22 13:00 105 H 12 124/62 05/14/22 12:45 104 H 14 121/63 05/14/22 12:30 108 H 14 150/77 H 05/14/22 12:15 105 H 12 142/76 H 05/14/22 12:00 104 H 14 138/78 05/14/22 11:30 97 H 15 151/70 H 05/14/22 11:20 99 H 13 146/70 H 05/14/22 11:50 36.8 C 103 H 14 147/73 H 05/14/22 11:40 99 H 14 150/72 H 05/14/22 11:10 98 H 18 147/68 H 05/14/22 11:03 36.4 C L 99 H 16 135/80 05/14/22 07:33 36.4 C L 91 H 16 BP Pulse Ox O2 Del Method O2 Flow Rate 05/14/22 16:11 96 05/14/22 16:20 05/14/22 15:30 96 Nasal Cannula 4 05/14/22 14:30 96 Nasal Cannula 4 05/14/22 14:00 95 Nasal Cannula 4 05/14/22 13:30 93 Nasal Cannula 2 05/14/22 13:00 96 Nasal Cannula 2 05/14/22 12:45 91 Room Air 05/14/22 12:30 96 Oxymask 4 05/14/22 12:15 97 Oxymask 4 05/14/22 12:00 96 Oxymask 4 05/14/22 11:30 98 Oxymask 6 05/14/22 11:20 98 Oxymask 6 05/14/22 11:50 97 Oxymask 4 05/14/22 11:40 96 Oxymask 4 05/14/22 11:10 98 Oxymask 10 05/14/22 11:03 95 Oxymask 10 05/14/22 07:33 170/90 H 93 Room Air Critical Care Results & Data Vital Signs (Past 12 Hours) Vital Signs Temp Pulse Pulse Pulse Resp BP BP 05/14/22 16:11 103 H 15 149/81 H 05/14/22 16:20 37.2 C 05/14/22 15:30 101 H 12 145/82 H 05/14/22 14:30 109 H 14 134/79 05/14/22 14:00 105 H 15 126/71 05/14/22 13:30 110 H 36 H 138/73 05/14/22 13:00 105 H 12 124/62 05/14/22 12:45 104 H 14 121/63 05/14/22 12:30 108 H 14 150/77 H 05/14/22 12:15 105 H 12 142/76 H 05/14/22 12:00 104 H 14 138/78 05/14/22 11:30 97 H 15 151/70 H 05/14/22 11:20 99 H 13 146/70 H 05/14/22 11:50 36.8 C 103 H 14 147/73 H 05/14/22 11:40 99 H 14 150/72 H 05/14/22 11:10 98 H 18 147/68 H 05/14/22 11:03 36.4 C L 99 H 16 135/80 05/14/22 07:33 36.4 C L 91 H 16 BP Pulse Ox O2 Del Method O2 Flow Rate 05/14/22 16:11 96 05/14/22 16:20 05/14/22 15:30 96 Nasal Cannula 4 05/14/22 14:30 96 Nasal Cannula 4 05/14/22 14:00 95 Nasal Cannula 4 05/14/22 13:30 93 Nasal Cannula 2 05/14/22 13:00 96 Nasal Cannula 2 05/14/22 12:45 91 Room Air 05/14/22 12:30 96 Oxymask 4 05/14/22 12:15 97 Oxymask 4 05/14/22 12:00 96 Oxymask 4 05/14/22 11:30 98 Oxymask 6 05/14/22 11:20 98 Oxymask 6 05/14/22 11:50 97 Oxymask 4 05/14/22 11:40 96 Oxymask 4 05/14/22 11:10 98 Oxymask 10 05/14/22 11:03 95 Oxymask 10 05/14/22 07:33 170/90 H 93 Room Air Lab & Micro Results (Past 24 Hours) RBC 3.28 M/uL (3.93-5.22) L 05/14/22 WBC 8.32 K/ul (4.8-10.8) 05/14/22 Hgb 9.5 g/dl (12.0-16.0) L 05/14/22 Hct 31.0 % (34.1-44.9) L 05/14/22 MCV 94.5 fL (80.0-100.0) 05/14/22 MCH 29.0 pg (25.0-34.0) 05/14/22 MCHC 30.6 g/dL (32.0-36.0) L 05/14/22 RDW Standard Deviation 48.9 fL (36.4-46.3) H 05/14/22 RDW Coefficient of Variation 14.3 % (11.5-14.5) 05/14/22 Plt Count 374 K/uL (130-400) 05/14/22 MPV 8.5 fL (9.4-12.3) L 05/14/22 Na 140 mmol/L (136-145) 05/14/22 K 3.3 mmol/L (3.5-5.1) L 05/14/22 Cl 109 mmol/L (98-107) H 05/14/22 CO2 24 mmol/L (21-32) 05/14/22 Anion Gap 7 (3-11) 05/14/22 BUN 6 mg/dl (6-23) 05/14/22 Creatinine 0.81 mg/dl (0.6-1.2) 05/14/22 Estimated GFR ( Amer) 81.8 ml/min 05/14/22 Estimated GFR (Non-Af Amer) 70.5 ml/min 05/14/22 BUN/Creatinine Ratio 7.4 (10-20) L 05/14/22 Glu 96 mg/dl (70-99(Fasting)) 05/14/22 Ca 8.4 mg/dl (8.5-10.1) L 05/14/22 Calcium Level 8.4 mg/dl (8.5-10.1) L 05/14/22 06:24 I & O Totals 24 Hours 05/13/22 05/14/22 05/15/22 06:59 06:59 06:59 Intake Total 1775.833 / 2005.524 7154.72 / 2759.72 3282.5 / 3282.5 Output Total 1254 / 1254 1910 / 1910 995 / 995 Balance 521.833 / 521.833 849.72 / 849.72 2287.5 / 2287.5 Cumulative 05/08/22 16:10 thru 05/14/22 16:17 Intake Total 90977.053 Output Total 7693 Balance 3240.053 RT Ventilator Mngmt (Last Documented) Ventilator Ordered Settings Respiratory Rate 15 05/14/22 16:11 Ventilator - PT Measurements Respiratory Rate 15 Coding Level of Care Code 23688 Inpt Consult Level 5 Diagnoses S/P right hemicolectomy Z90.49 Ileitis K52.9 Abdominal pain R10.9 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
[2022-05-14] MEDS: NORMOSOL-R 1,000 ML IV SCH (17:32)
[2022-05-14 18:59] LABS: Hematocrit (blood only) 35.4 % (34.1-44.9); Mean Corpuscular Hemoglobin 28.9 pg (25.0-34.0); Mean Corpuscular Hgb Conc 31.1 g/dL (32.0-36.0); Mean Corpuscular Volume 93.2 fL (80.0-100.0); Mean Platelet Volume 9.1 fL (9.4-12.3); Platelet Count 383 K/uL (130-400); RDW Coefficient of Variation 14.2 % (11.5-14.5); RDW Standard Deviation 48.1 fL (36.4-46.3); White Blood Count 20.54 K/ul (4.8-10.8)
[2022-05-14 19:00] LABS: Basophils # (auto) 0.03 K/uL (0-0.2); Basophils % (auto) 0.1 %; Echinocytes 1+; Immature Granulocytes % (auto) 0.5 %; Lymphocytes # (auto) 5.39 K/uL (1.2-3.4); Lymphocytes % (auto) 26.2 %; Monocytes % (auto) 2.9 %; Neutrophils # (auto) 14.42 K/uL (1.4-6.5); Neutrophils % (auto) 70.3 %; Ovalocytes 1+
[2022-05-14] MEDS: HYDROmorphone INJ 0.5 MG/0.5 ML SYR IV PRN ×2 (20:12→23:25)
[2022-05-14] MEDS: LORazepam 0.5 MG in SYRINGE 0 ML IV PRN (22:30)
[2022-05-15] MEDS: NORMOSOL-R 1,000 ML IV SCH ×3 (02:00→17:20)
[2022-05-15] MEDS: PIPERACILLIN/TAZOBACTAM 3.375 GM in DEXTROSE 5% 100 ML IV SCH ×3 (02:00→17:20)
[2022-05-15] MEDS: HYDROmorphone INJ 0.5 MG/0.5 ML SYR IV PRN ×6 (05:11→20:51)
[2022-05-15 05:55] LABS: Hematocrit (blood only) 29.7 % (34.1-44.9); Hemoglobin 9.4 g/dl (12.0-16.0); Mean Corpuscular Hgb Conc 31.6 g/dL (32.0-36.0); Mean Corpuscular Volume 91.7 fL (80.0-100.0); Mean Platelet Volume 8.7 fL (9.4-12.3); Platelet Count 402 K/uL (130-400); RDW Coefficient of Variation 13.9 % (11.5-14.5); RDW Standard Deviation 46.9 fL (36.4-46.3); Red Blood Count 3.24 M/uL (3.93-5.22)
[2022-05-15 06:16] LABS: BUN Creatinine Ratio 10.8 (10-20); Calcium 8.4 mg/dl (8.5-10.1); Creatinine Clr Calc Pharmacy 69.7 ml/min; Est GFR (African American) 91.2 ml/min; Est GFR (Non-African American) 78.7 ml/min; Magnesium 1.4 mg/dl (1.7-2.4); Phosphorus 2.6 mg/dl (2.5-4.9); Potassium 3.5 mmol/L (3.5-5.1)
--- NOTE | 2022-05-15 06:24 | Surgery Progress Note ---
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 which was causing a bowel obstruction There is no evidence of perforation although she did have significant adhesions in the right lower quadrant Continue NG decompression May consider PPN as I doubt she will be able to eat much for the next several days Routine wound care Could be transferred out of the ICU to the MICU or PCU-see with the ICU medical team's think this morning Admission and Anticipated Discharge Date Admission Date: May 08, 2022 Results & Data ([facility]) Vital Signs (Past 12 Hours) Vital Signs Temp Pulse Resp BP Pulse Ox O2 Del Method 05/15/22 05:00 97 H 24 68 L 05/15/22 05:00 139/74 05/15/22 04:00 70 13 95 05/15/22 04:00 117/56 L 05/15/22 03:00 78 16 91 05/15/22 03:00 114/57 L 05/15/22 02:00 78 14 97 05/15/22 02:00 120/62 05/15/22 01:00 88 17 95 05/15/22 01:00 118/67 05/15/22 00:00 91 H 26 H 96 05/15/22 00:00 137/72 05/14/22 23:00 89 17 96 05/14/22 23:00 132/66 05/14/22 22:00 93 H 17 95 05/14/22 22:00 133/71 05/14/22 21:00 94 H 18 97 05/14/22 21:00 135/75 05/14/22 20:00 103 H 12 98 05/14/22 20:00 145/80 H 05/14/22 19:00 94 H 18 98 05/14/22 19:00 135/67 05/14/22 22:00 37.3 C 05/14/22 21:48 Room Air PG Care Time/CCT Total # of Minutes Spent Total Time Spent with Patient: Total time spent is greater than 50% in coordination of care (as documented) at patient's floor/unit and/or counseling patient: Coding Level of Care Code None Diagnoses S/P right hemicolectomy Z90.49
[2022-05-15] MEDS: MAGNESIUM SULFATE / D5W 1 GM/100 ML BAG IV SCH ×4 (07:14→22:46)
[2022-05-15] MEDS: POTASSIUM CHLORIDE / WTR 10 MEQ/100 ML PLCT IV SCH ×5 (07:14→23:50)
[2022-05-15] MEDS ORDERED: ALBUTEROL 0.083% NEBU SOLN 3 ML VIAL ONE (08:29)
[2022-05-15] MEDS ORDERED: HYDROmorphone INJ 0.5 MG/0.5 ML SYR IV STA (08:31)
[2022-05-15] MEDS ORDERED: ALBUTEROL 0.083% NEBU SOLN 3 ML VIAL NEB STA (08:36)
--- NOTE | 2022-05-15 09:17 | Critical Care Progress Note ---
Date of Service May 15, 2022 Assessment & Plan (1) S/P right hemicolectomy: Plan: Reason Critically Ill: 77-year-old female here with a PMHx significant for CVA who presented for scheduled hemicolectomy for cecal mass, transferred to the ICU for postoperative monitoring. Postoperative day #1. Neuro -seizure disorder * Continue Keppra * Morphine for analgesia Cardiac -hypertension * Continue home atenolol GI -cecal mass * Now postop day 1. Defer to surgery team RENAL/LYTES -CKD 2 * Normosol 125 mL/h * Replace lytes as needed. ENDO - * ICU hyperglycemia protocol HEME - * Stable H&H. * Heparin 5000 every 12 LINES/IV ACCESS - PIVs intact. Thank you for allowing us to be part of this patient's care. Please refer to Dr. Kemp's documentation for any further recommendations. 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 Barr was resident physician during care of patient. I separately evaluated patient for ellington portions of the history and the exam. I was present during the critical portion of medical decision making, and I discussed the case with the resident. I generally agree with the findings and plan. Patient pulled NG tube this morning. This was reinserted, right wrist restraints and mitt. Mild increased work of breathing, ordered albuterol however symptoms largely stopped when patient was not being observed. Patient is DNR/DNI in event of cardiac arrest, I suspect large MCA stroke has probably increased risk for aspiration of bodily secretions. Physical therapy and Occupational Therapy consults hopeful for early mobilization to assist with return of bowel function. I have personally spent 55 minutes of critical care time in the direct management of this patient. This is a life/limb threatening event. This includes time spent evaluating patient, direct bedside care, chart review, placing orders, interpretation of diagnostic studies, discussion with consultants, patient, and/or family members regarding treatment decisions, as well as other required patient management activities. This time is exclusive of all separately billable procedures, and teaching time and separate from and in addition to any other critical care service time. Subjective Patient nonverbal, per baseline. Per nursing, patient was agitated overnight, removing IVs at both sites, and attempting to remove Chong catheter. This morning, patient alert and appeared agitated (loud moaning and groaning). Soft restraints were ordered and applied. Review of Systems Review of Systems: All systems reviewed & are unremarkable except as noted in HPI & below Physical Exam Physical Exam: General: No acute distress HEENT: PERRLA. Normal conjunctiva, anicteric sclera. Oropharynx normal. Respiratory: Normal respiratory effort, CTA BL. Cardiovascular: RRR without murmurs, gallops, or rubs. No edema. GI: Soft abdomen with normal bowel sounds heard on auscultation. Nontender x4 quadrants Neuro: Alert and oriented x3. Results & Data Results & Data ([facility]) Vital Signs (Past 12 Hours) Vital Signs Temp Pulse Resp BP Pulse Ox O2 Del Method 05/15/22 05:00 97 H 24 68 L 05/15/22 05:00 139/74 05/15/22 04:00 70 13 95 05/15/22 04:00 117/56 L 05/15/22 03:00 78 16 91 05/15/22 03:00 114/57 L 05/15/22 02:00 78 14 97 05/15/22 02:00 120/62 05/15/22 01:00 88 17 95 05/15/22 01:00 118/67 05/15/22 00:00 91 H 26 H 96 05/15/22 00:00 137/72 05/14/22 23:00 89 17 96 05/14/22 23:00 132/66 05/14/22 22:00 93 H 17 95 05/14/22 22:00 133/71 05/14/22 21:00 94 H 18 97 05/14/22 21:00 135/75 05/14/22 20:00 103 H 12 98 05/14/22 20:00 145/80 H 05/14/22 22:00 37.3 C 05/14/22 21:48 Room Air Resident Activity Tracking Resident Involvement: Resident Care Provided Care Provided: Adult [facility] Medicine
--- NOTE | 2022-05-15 09:18 | Billing Data ---
Date of Service May 15, 2022 Coding Level of Care Code Critical Care mins
[2022-05-15] MEDS: DICLOFENAC SOD 1% GEL 100 GM TUBE EXT SCH ×4 (09:26→19:44)
[2022-05-15] MEDS: HEPARIN SOD 5,000 UNIT/0.5 ML VIAL SQ SCH ×2 (09:26→19:44)
[2022-05-15] MEDS: levETIRAcetam 750 MG in 0.9 % SODIUM CHLORIDE 100 ML IV SCH ×2 (10:07→19:44)
[2022-05-15] MEDS: PANTOprazole 40 MG in SYRINGE 0 ML IV SCH (10:08)
--- NOTE | 2022-05-15 10:15 | XRay Report ---
XR chest 1V portable CLINICAL HISTORY: possible aspiration, increased work of breathing TECHNIQUE: Single frontal radiograph of the chest was obtained. Comparison: Comparison is made to CT abdomen pelvis 05/12/2022 FINDINGS: Enteric tube tip and side-port lie below the diaphragm. Cardiomegaly is noted. Prominence and cephali zation of the vasculature is seen. Atelectasis is noted. There is mild airspace opacity in the left l ower lung. No evidence of pleural effusion or pneumothorax. IMPRESSION: 1. Satisfactory position of enteric tube. 2. Left lower lung opacity may represent atelectasis, pneumonia, and/or aspiration. 3. Cardiomegaly and mild pulmonary edema. ACT 112: Negative or not required by law. Electronically signed by: Werner Ann M.D. 05/15/2022 10:12 AM
[2022-05-15] MEDS: LORazepam 0.5 MG in SYRINGE 0 ML IV PRN ×3 (10:33→20:51)
--- NOTE | 2022-05-15 14:30 | Hospitalist Progress Note ---
Date of Service May 15, 2022 Assessment & Plan (1) Small bowel obstruction: Plan: KUB and CT a/p on 05/12 after worsening distension and pain showed SBO. Radiology concerned about an ileocecal mass. NG tube has been pulled out by the patient. She is currently on intravenous Zosyn postoperatively. Surgery following - S/p ex lap with right hemicolectomy and anastomosis with Dr. Norris on 05/14. Postoperative day #1 (2) GERD (gastroesophageal reflux disease): Plan: Chronic. 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 She is able to answer yes or no questions by shaking her head. 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 Just has to answer in yes/no form due to her aphasia. Continue atorvastatin 80mg and ASA 81mg (4) CKD (chronic kidney disease): Plan: Baseline Cr ~0.75 - 0.85, CKD Stage II. At baseline. Avoid nephrotoxic agents. (5) Hypertension: Plan: Atenolol is on hold. Resume when able. Continue to monitor. (6) Urinary retention: Plan: Chong catheter in place. Continue oxybutynin (7) Seizure disorder: Plan: Chronic. Continue Keppra 750mg po BID. Presently on IV Keppra while NPO. Plan DVT ppx: Lovenox 40 mg SQ HS Disposition: To be determined Admission and Anticipated Discharge Date Admission Date: May 08, 2022 Subjective Tearful, uncooperative, crying out. Review of Systems Review of Systems: Unable to assess review of systems at this time Physical Exam Physical Exam: General-awake. Nonverbal. She is tearful and appears disoriented. HEENT-head atraumatic and normocephalic, pupils equal and reactive to light, extraocular muscles intact Neck-no lymphadenopathy or thyromegaly, trachea midline Chest-clear to auscultation percussion. No rales wheezing or rhonchi Cardiac-mildly tachycardic, regular rhythm, normal S1 and S2 Abdomen-very faint intermittent bowel sounds. Surgical site is intact without bleeding. Extremities-no cyanosis, clubbing, or edema Neuro-aphasic Psych-agitated and tearful Results & Data Results & Data ([facility]) Vital Signs (Past 12 Hours) Vital Signs Temp Pulse Pulse Resp BP BP Pulse Ox 05/15/22 13:00 85 13 98 05/15/22 12:00 106 H 17 130/62 95 05/15/22 11:00 92 H 14 05/15/22 10:00 96 H 14 95 05/15/22 09:00 121 H 18 90 05/15/22 08:00 123 H 31 H 05/15/22 10:00 122/79 05/15/22 12:00 37.2 C 05/15/22 09:00 37.1 C 16 95 05/15/22 08:36 100 H 24 93 05/15/22 07:00 88 11 L 122/64 05/15/22 06:00 83 13 05/15/22 06:00 120/62 05/15/22 05:00 97 H 24 68 L 05/15/22 05:00 139/74 05/15/22 04:00 70 13 95 05/15/22 04:00 117/56 L 05/15/22 03:00 78 16 91 05/15/22 03:00 114/57 L O2 Del Method O2 Flow Rate 05/15/22 13:00 05/15/22 12:00 05/15/22 11:00 05/15/22 10:00 05/15/22 09:00 05/15/22 08:00 05/15/22 10:00 05/15/22 12:00 05/15/22 09:00 Nasal Cannula 2 05/15/22 08:36 Room Air 05/15/22 07:00 05/15/22 06:00 05/15/22 06:00 05/15/22 05:00 05/15/22 05:00 05/15/22 04:00 05/15/22 04:00 05/15/22 03:00 05/15/22 03:00 Laboratory Results 05/15/22 05:36 05/15/22 05:36 PG Care Time/CCT Total # of Minutes Spent Total Time Spent with Patient: Total time spent is greater than 50% in coordination of care (as documented) at patient's floor/unit and/or counseling patient: Coding Level of Care Code 69247 Subseq Hosp Care Lvl 3 Diagnoses Small bowel obstruction K56.609 GERD (gastroesophageal reflux disease) K21.9 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
[2022-05-15] MEDS: ONDANSETRON INJ 2 MG/ML 2 ML VIAL IV PRN (17:44)
[2022-05-15 18:54] LABS: BUN Creatinine Ratio 11.8 (10-20); Calcium 8.5 mg/dl (8.5-10.1); Creatinine Clr Calc Pharmacy 67.8 ml/min; Est GFR (African American) 88.3 ml/min; Est GFR (Non-African American) 76.2 ml/min; Magnesium 1.8 mg/dl (1.7-2.4); Potassium 3.3 mmol/L (3.5-5.1)
[2022-05-16] MEDS: MAGNESIUM SULFATE / D5W 1 GM/100 ML BAG IV SCH (00:49)
[2022-05-16] MEDS: NORMOSOL-R 1,000 ML IV SCH ×3 (01:48→17:38)
[2022-05-16] MEDS: PIPERACILLIN/TAZOBACTAM 3.375 GM in DEXTROSE 5% 100 ML IV SCH ×3 (01:48→17:38)
[2022-05-16] MEDS: HYDROmorphone INJ 0.5 MG/0.5 ML SYR IV PRN ×4 (01:48→14:23)
[2022-05-16] MEDS: LORazepam 0.5 MG in SYRINGE 0 ML IV PRN ×2 (04:48→21:43)
[2022-05-16 06:41] LABS: Magnesium 1.9 mg/dl (1.7-2.4); Phosphorus 2.1 mg/dl (2.5-4.9)
--- NOTE | 2022-05-16 08:06 | Critical Care Progress Note ---
Date of Service May 16, 2022 Assessment & Plan (1) S/P right hemicolectomy: Plan: Reason Critically Ill: 77-year-old female here with a PMHx significant for CVA (subsequent right sided hemiplegia) admitted to the hospital for scheduled hemicolectomy for cecal mass, and transferred to the ICU for postoperative monitoring. Postoperative day #2. Neuro Seizure disorder * Continue home Keppra, Ativan (as needed) * Morphine, Dilaudid (as needed), for analgesia Cardiac Hypertension * Continue home atenolol GI Cecal mass: * Defer management to primary team * IV pantoprazole * Zofran as needed RENAL/LYTES CKD 2 * Normosol 125 mL/h * Replace lytes as needed. ENDO * ICU hyperglycemia protocol HEME * Stable H&H. * Heparin 5000 every 12 ID Leukocytosis: Improving * Defer antibiotic management to primary team LINES/IV ACCESS - PIVs intact. Thank you for allowing us to be part of this patient's care. Please refer to Dr. Che's documentation for any further recommendations. 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 Barr was the resident-physician during care of patient. I separately evaluated patient for ellington portions of the history and the exam. I was present during the critical portion of medical decision making, and I discussed the case with the resident. I generally agree with the findings and plan except for any additions/exceptions noted. Patient seen and examined at bedside. No acute distress, no adverse events overnight Patient NGT still draining No bowel movement still. Answers simple questions by nodding her head yes and no. Denied any headache, no chest pain, no shortness of breath, no abdominal pain. Constitutional: No acute distress HEENT: EOMI, PERRLA, positive NGT Respiratory system: Good air entry bilaterally, no wheeze, rhonchi, positive crackles bilateral lower lobes CVS: S1-S2 positive, no murmurs or gallops Abdomen: Soft, nontender, nondistended, decreased bowel sounds Extremities: +2 pulses bilaterally radialis/ dorsalis pedis, no cyanosis, no edema Neuro: Awake alert, aphasic Psych: Normal mood and affect G/U: Positive Chong --Prophylaxis VTE: Heparin GI: Protonix Lines: Peripheral Diet: N.p.o. Plan: In/out: +1260, urine output 3175 Patient on Zosyn as per surgery. NGT still draining,Discontinuation of NGT and diet as per surgery Follow-up pathology of the rectal mass Patient hemodynamically stable to be downgraded to the medical floor Please note the above document was generated using voice recognition software. It may contain grammatical, syntax or spelling errors.Any formal questions or concerns about the content, text or information contained within the body of this dictation should be directly addressed to the provider for clarification. Subjective Overnight, patient remained combative, uncooperative. This morning, patient resting comfortably. One-to-one observer present at bedside. Review of Systems Review of Systems: All systems reviewed & are unremarkable except as noted in HPI & below Physical Exam Physical Exam: General: No acute distress HEENT: PERRLA. Normal conjunctiva, anicteric sclera. Oropharynx normal. Respiratory: Normal respiratory effort, CTA BL. Cardiovascular: RRR without murmurs, gallops, or rubs. No edema. GI: Soft abdomen with normal bowel sounds heard on auscultation. Nontender x4 quadrants Neuro: Nonverbal, responds to sound. Unable to follow verbal commands Results & Data Results & Data ([facility]) Vital Signs (Past 12 Hours) Vital Signs Temp Pulse Resp BP Pulse Ox 05/16/22 06:00 37.4 C 99 H 17 95 05/16/22 06:00 136/62 05/16/22 05:00 99 H 17 93 05/16/22 05:00 105/61 05/16/22 04:30 127 H 16 91 05/16/22 04:00 128 H 20 93 05/16/22 04:00 160/93 H 05/16/22 03:30 91 H 20 95 05/16/22 03:09 152/73 H 05/16/22 03:09 101 H 16 94 05/16/22 03:00 93 H 18 152/73 H 95 05/16/22 02:00 101 H 24 136/53 L 94 05/16/22 01:00 111 H 18 94 05/16/22 00:00 118 H 91 05/15/22 23:00 104 H 26 H 94 05/15/22 22:52 142/81 H 05/15/22 22:52 99 H 19 94 05/15/22 22:00 96 H 23 93 05/15/22 21:00 92 H 15 94 Laboratory Results 05/15/22 05:36 05/16/22 09:27 Resident Activity Tracking Resident Involvement: Resident Care Provided Care Provided: Adult [facility] Medicine
[2022-05-16] MEDS: PANTOprazole 40 MG in SYRINGE 0 ML IV SCH (09:48)
[2022-05-16] MEDS: HEPARIN SOD 5,000 UNIT/0.5 ML VIAL SQ SCH (09:48)
[2022-05-16] MEDS: levETIRAcetam 750 MG in 0.9 % SODIUM CHLORIDE 100 ML IV SCH ×2 (09:48→22:56)
[2022-05-16] MEDS: DICLOFENAC SOD 1% GEL 100 GM TUBE EXT SCH ×2 (10:00→13:34)
[2022-05-16 10:12] LABS: BUN Creatinine Ratio 8.7 (10-20); Calcium 8.7 mg/dl (8.5-10.1); Creatinine Clr Calc Pharmacy 74.7 ml/min; Est GFR (Non-African American) 84.6 ml/min; Potassium 3.4 mmol/L (3.5-5.1)
--- NOTE | 2022-05-16 11:47 | Surgery Progress Note ---
Date of Service May 16, 2022 Assessment & Plan (1) S/P right hemicolectomy: Plan: POD#2 open right hemicolectomy VSS. Appears in no distress Continue NGT for now (250cc documented over last shift). may consider starting PPN in the interim while npo Possible removal tomorrow pending progress. diet advancement dependent on return of bowel function Abdomen soft, incision c/d/i with yuridia in place Okay for downgrade from ICU from our standpoint [facility] covering the wknd Admission and Anticipated Discharge Date Admission Date: May 08, 2022 Supervising Physician Co-Signing Physician Notes Patient is examined, labs image reviewed, agree with above. 77-year-old female POD #2 right hemicolectomy with ileocolic anastomosis for obstructing tumor. She suffers from dementia and is nonverbal. No overnight events. On exam afebrile stable vitals. Dressing taken down, no evidence of infection. NG tube with moderate output. We will continue NG tube, possible removal once return of bowel function. [facility] surgery covering over the weekend. Appreciate medicine's care of this patient. Subjective Patient non-verbal on our interview. Is awake and in no distress. Appears that she is resting comfortably in bed. Physical Exam Physical Exam: awake, no distress Gastrointestinal (Abdomen): Inspection/Auscultation: + abdominal surgical incision (incision c/d/i w alicia and yuridia in place. some dried blood on dressing); abdomen not distended Results & Data ([facility]) Vital Signs (Past 12 Hours) Vital Signs Temp Pulse Resp BP Pulse Ox 05/16/22 06:00 37.4 C 99 H 17 95 05/16/22 06:00 136/62 05/16/22 05:00 99 H 17 93 05/16/22 05:00 105/61 05/16/22 04:30 127 H 16 91 05/16/22 04:00 128 H 20 93 05/16/22 04:00 160/93 H 05/16/22 03:30 91 H 20 95 05/16/22 03:09 152/73 H 05/16/22 03:09 101 H 16 94 05/16/22 03:00 93 H 18 152/73 H 95 05/16/22 02:00 101 H 24 136/53 L 94 05/16/22 01:00 111 H 18 94 05/16/22 00:00 118 H 91 PG Care Time/CCT Total # of Minutes Spent Total Time Spent with Patient: Total time spent is greater than 50% in coordination of care (as documented) at patient's floor/unit and/or counseling patient: Coding Level of Care Code None Diagnoses S/P right hemicolectomy Z90.49
--- NOTE | 2022-05-16 14:02 | Hospitalist Progress Note ---
Date of Service May 16, 2022 Assessment & Plan (1) Small bowel obstruction: Plan: KUB and CT a/p on 05/12 after worsening distension and pain showed SBO. Radiology concerned about an ileocecal mass. NG tube has been pulled out by the patient. She is currently on intravenous Zosyn postoperatively. Surgery following - S/p ex lap with right hemicolectomy and anastomosis with Dr. Norris on 05/14. Postoperative day #2. Path report is pending (2) GERD (gastroesophageal reflux disease): Plan: Chronic. 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 She is able to answer yes or no questions by shaking her head. 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 Just has to answer in yes/no form due to her aphasia. Continue atorvastatin 80mg and ASA 81mg (4) CKD (chronic kidney disease): Plan: Baseline Cr ~0.75 - 0.85, CKD Stage II. At baseline. Avoid nephrotoxic agents. (5) Hypertension: Plan: Atenolol is on hold. Resume when able. Continue to monitor. (6) Urinary retention: Plan: Chong catheter in place. Continue oxybutynin (7) Seizure disorder: Plan: Chronic. Continue Keppra 750mg po BID. Presently on IV Keppra while NPO. Plan DVT ppx: Lovenox 40 mg SQ HS Disposition: To be determined Admission and Anticipated Discharge Date Admission Date: May 08, 2022 Subjective The patient is much more calm today and in no distress. Postoperative day #2 after right hemicolectomy. Pathology report from the surgical specimen remains pending but high suspicion for cecal carcinoma. Review of Systems Review of Systems: Unable to assess review of systems at this time Physical Exam Physical Exam: General-awake. Nonverbal. She is calm at this time but nonverbal with me. HEENT-head atraumatic and normocephalic, pupils equal and reactive to light, extraocular muscles intact Neck-no lymphadenopathy or thyromegaly, trachea midline Chest-clear to auscultation percussion. No rales wheezing or rhonchi Cardiac-mildly tachycardic, regular rhythm, normal S1 and S2 Abdomen-bowel sounds are now present. Surgical site is intact without bleeding. Extremities-no cyanosis, clubbing, or edema Neuro-aphasic Psych-she is no longer agitated or tearful Results & Data Results & Data ([facility]) Vital Signs (Past 12 Hours) Vital Signs Temp Pulse Resp BP Pulse Ox 05/16/22 13:00 90 18 96 05/16/22 12:00 94 H 17 95 05/16/22 12:00 140/77 05/16/22 11:00 120 H 14 90 05/16/22 11:00 177/96 H 05/16/22 10:00 110 H 14 93 05/16/22 10:00 122/93 05/16/22 09:29 108 H 16 93 05/16/22 09:29 166/74 H 05/16/22 09:00 115 H 15 95 05/16/22 09:00 178/98 H 05/16/22 08:00 100 H 17 94 05/16/22 08:00 164/79 H 05/16/22 07:00 101 H 15 96 05/16/22 07:00 157/77 H 05/16/22 12:26 37.0 C 05/16/22 08:00 37.1 C 05/16/22 06:00 37.4 C 99 H 17 95 05/16/22 06:00 136/62 05/16/22 05:00 99 H 17 93 05/16/22 05:00 105/61 05/16/22 04:30 127 H 16 91 05/16/22 04:00 128 H 20 93 05/16/22 04:00 160/93 H 05/16/22 03:30 91 H 20 95 05/16/22 03:09 152/73 H 05/16/22 03:09 101 H 16 94 05/16/22 03:00 93 H 18 152/73 H 95 Laboratory Results 05/15/22 05:36 05/16/22 09:27 PG Care Time/CCT Total # of Minutes Spent Total Time Spent with Patient: Total time spent is greater than 50% in coordination of care (as documented) at patient's floor/unit and/or counseling patient: Coding Level of Care Code 67743 Subseq Hosp Care Lvl 3 Diagnoses Small bowel obstruction K56.609 GERD (gastroesophageal reflux disease) K21.9 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
[2022-05-16] MEDS: ONDANSETRON INJ 2 MG/ML 2 ML VIAL IV PRN (14:38)
--- NOTE | 2022-05-16 15:10 | Billing Data ---
Date of Service May 16, 2022 Coding Level of Care Code 53578 Subseq Hosp Care Lvl 3
[2022-05-17] MEDS: HEPARIN SOD 5,000 UNIT/0.5 ML VIAL SQ SCH ×3 (00:06→21:52)
[2022-05-17] MEDS: NORMOSOL-R 1,000 ML IV SCH ×3 (01:38→17:33)
[2022-05-17] MEDS: PIPERACILLIN/TAZOBACTAM 3.375 GM in DEXTROSE 5% 100 ML IV SCH ×3 (01:40→16:41)
[2022-05-17 06:59] LABS: Magnesium 1.8 mg/dl (1.7-2.4); Phosphorus 2.7 mg/dl (2.5-4.9)
[2022-05-17] MEDS: PANTOprazole 40 MG in SYRINGE 0 ML IV SCH (08:01)
[2022-05-17] MEDS: levETIRAcetam 750 MG in 0.9 % SODIUM CHLORIDE 100 ML IV SCH ×2 (08:01→21:46)
[2022-05-17 09:14] LABS: Hematocrit (blood only) 29.7 % (34.1-44.9); Hemoglobin 9.1 g/dl (12.0-16.0); Mean Corpuscular Hemoglobin 28.1 pg (25.0-34.0); Mean Corpuscular Hgb Conc 30.6 g/dL (32.0-36.0); Mean Corpuscular Volume 91.7 fL (80.0-100.0); Mean Platelet Volume 9.1 fL (9.4-12.3); Platelet Count 387 K/uL (130-400); RDW Coefficient of Variation 14.5 % (11.5-14.5); RDW Standard Deviation 49.2 fL (36.4-46.3); Red Blood Count 3.24 M/uL (3.93-5.22); White Blood Count 11.92 K/ul (4.8-10.8)
[2022-05-17] MEDS: HYDROmorphone INJ 0.5 MG/0.5 ML SYR IV PRN (09:34)
[2022-05-17 09:40] LABS: BUN Creatinine Ratio 9.3 (10-20); Calcium 8.5 mg/dl (8.5-10.1); Creatinine Clr Calc Pharmacy 95.5 ml/min; Est GFR (African American) 106.2 ml/min; Est GFR (Non-African American) 91.7 ml/min; Magnesium 1.8 mg/dl (1.7-2.4); Potassium 3.8 mmol/L (3.5-5.1)
--- NOTE | 2022-05-17 13:58 | Hospitalist Progress Note ---
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 s/p ex lap with right sided hemicolectomy by Dr Norris, POD #3. End-to-end anastomosis was made during her surgery. See below. (2) Small bowel obstruction: Plan: 2nd to ileocecal mass. POD #3 - s/p ex lap with right hemicolectomy and anastomosis with Dr. Norris on 05/14. Path report is pending. Gen surg to remove NG tube today. Hopefully will allow some basic clears tomorrow if tolerating NG tube removal. Cont pain control, IV fluids. Defer on PPN for now. 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 (6) CKD (chronic kidney disease): Plan: stage 2 BMP wnl today (7) Hypertension: Plan: Atenolol is on hold. BPs stable without it. (8) Urinary retention: Plan: Chong catheter in place. Placement date - 05/08/22 in ER. (9) Seizure disorder: Plan: Chronic. Continue Keppra 750mg po BID. Presently on IV Keppra while NPO. Plan DVT prophylaxis - heparin 5000 BID appreciate ongoing gen surg assistance Admission and Anticipated Discharge Date Admission Date: May 08, 2022 Subjective patient resting with eyes closed only opens eyes briefly nonverbal, but shakes head yes and no to questions denies abdominal pain, but shook her head "yes" when asked if her stomach was upset/nauseous no dyspnea no chest pain per staff no bowel movement but passing flatus has intermittently required use of a soft mitt on her left hand (attempting to pull out her NG tube) Review of Systems Review of Systems: Unobtainable due to cognitive status (and nonverbal status) Physical Exam Physical Exam: gen - NAD, resting with eyes closed mouth - MMM nose - NG tube in place draining bilious fluid neck - no JVD heart - RRR, s1 s2, no murmur lungs - CTA b/l abd - soft NT ND BS+ dressings intact on abdominal wall ext - no edema, pulses 2+ b/l neuro - right-sided hemiplegia, expressive aphasia Results & Data Results & Data ([facility]) Vital Signs (Past 12 Hours) Vital Signs Temp Pulse Pulse Pulse Resp BP Pulse Ox 05/17/22 11:21 37.1 C 88 19 135/73 96 05/17/22 07:26 05/17/22 07:00 72 05/17/22 06:46 37.2 C 81 18 158/87 H 96 05/17/22 02:49 37.0 C 86 20 149/78 H 97 O2 Del Method O2 Flow Rate 05/17/22 11:21 Room Air 05/17/22 07:26 Nasal Cannula 2 05/17/22 07:00 05/17/22 06:46 Nasal Cannula 2 05/17/22 02:49 Nasal Cannula 2 Laboratory Results Laboratory Results - last 24 hr 05/17/22 05/17/22 05/17/22 06:06 06:07 08:35 WBC 11.92 H RBC 3.24 L Hgb 9.1 L Hct 29.7 L MCV 91.7 MCH 28.1 MCHC 30.6 L RDW Std Deviation 49.2 H RDW Coeff of Maria M 14.5 Plt Count 387 MPV 9.1 L Sodium 137 Potassium 3.8 Chloride 101 Carbon Dioxide 29 Anion Gap 7 BUN 5 L Creatinine 0.54 L Est Cr Clr Drug Dosing 95.5 Est GFR ( Amer) 106.2 Est GFR (Non-Af Amer) 91.7 BUN/Creatinine Ratio 9.3 L Glucose 126 H Calcium 8.5 Phosphorus 2.7 Magnesium 1.8 1.8 PG Care Time/CCT Total # of Minutes Spent Total Time Spent with Patient: Total time spent is greater than 50% in coordination of care (as documented) at patient's floor/unit and/or counseling patient: Coding Level of Care Code 63727 Subseq Hosp Care Lvl 2 Diagnoses Cecum mass K63.89 Small bowel obstruction K56.609 S/P right hemicolectomy Z90.49 GERD (gastroesophageal reflux disease) K21.9 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
--- NOTE | 2022-05-17 16:06 | Surgery Progress Note ---
Date of Service May 17, 2022 Assessment & Plan (1) S/P right hemicolectomy: Plan: doing well with return of bowel function. Will d/c ng tube today. if tolerates, can try to advance diet tomorrow. Admission and Anticipated Discharge Date Admission Date: May 08, 2022 Subjective Difficult to assess. Nurse at bedside and reports pt passed flatus. No bowel movement yet. does not appear to be in pain. No nausea/ vomiting. Physical Exam Constitutional: WD/WN, vitals as above Respiratory: normal respiratory effort, lungs clear to auscultation Cardiovascular: Rate/Rhythm: regular rate Gastrointestinal (Abdomen): Inspection/Auscultation: abdomen normal to inspection and normal bowel sounds Percussion/Palpation: abdomen soft; abdomen nontender and no guarding yuridia in place, incision clean Results & Data ([facility]) Vital Signs (Past 12 Hours) Vital Signs Temp Pulse Pulse Pulse Resp BP Pulse Ox 05/17/22 15:44 37.1 C 93 H 19 136/74 93 05/17/22 15:00 93 H 05/17/22 11:21 37.1 C 88 19 135/73 96 05/17/22 07:26 05/17/22 07:00 72 05/17/22 06:46 37.2 C 81 18 158/87 H 96 O2 Del Method O2 Flow Rate 05/17/22 15:44 Room Air 05/17/22 15:00 05/17/22 11:21 Room Air 05/17/22 07:26 Nasal Cannula 2 05/17/22 07:00 05/17/22 06:46 Nasal Cannula 2 Laboratory Results Abnormal lab results 05/17/22 05/17/22 Range/Units 06:07 08:35 WBC 11.92 H (4.8-10.8) K/ul RBC 3.24 L (3.93-5.22) M/uL Hgb 9.1 L (12.0-16.0) g/dl Hct 29.7 L (34.1-44.9) % MCHC 30.6 L (32.0-36.0) g/dL RDW Std Deviation 49.2 H (36.4-46.3) fL MPV 9.1 L (9.4-12.3) fL BUN 5 L (6-23) mg/dl Creatinine 0.54 L (0.6-1.2) mg/dl BUN/Creatinine Ratio 9.3 L (10-20) Glucose 126 H (70-99(Fasting)) mg/dl
[2022-05-18] MEDS: PIPERACILLIN/TAZOBACTAM 3.375 GM in DEXTROSE 5% 100 ML IV SCH ×3 (00:51→16:10)
[2022-05-18] MEDS: NORMOSOL-R 1,000 ML IV SCH ×2 (01:49→10:41)
[2022-05-18 07:10] LABS: Hematocrit (blood only) 29.6 % (34.1-44.9); Hemoglobin 9.2 g/dl (12.0-16.0); Mean Corpuscular Hemoglobin 28.2 pg (25.0-34.0); Mean Corpuscular Hgb Conc 31.1 g/dL (32.0-36.0); Mean Corpuscular Volume 90.8 fL (80.0-100.0); Mean Platelet Volume 8.8 fL (9.4-12.3); Platelet Count 393 K/uL (130-400); RDW Coefficient of Variation 14.2 % (11.5-14.5); RDW Standard Deviation 47.5 fL (36.4-46.3); Red Blood Count 3.26 M/uL (3.93-5.22); White Blood Count 11.53 K/ul (4.8-10.8)
[2022-05-18 07:47] LABS: BUN Creatinine Ratio 10.4 (10-20); Calcium 8.2 mg/dl (8.5-10.1); Creatinine Clr Calc Pharmacy 103.6 ml/min; Est GFR (African American) 110.4 ml/min; Est GFR (Non-African American) 95.3 ml/min; Potassium 3.3 mmol/L (3.5-5.1)
[2022-05-18] MEDS: levETIRAcetam 750 MG in 0.9 % SODIUM CHLORIDE 100 ML IV SCH ×2 (08:00→20:30)
[2022-05-18] MEDS: PANTOprazole 40 MG in SYRINGE 0 ML IV SCH (08:18)
[2022-05-18] MEDS: POTASSIUM CHLORIDE / WTR 10 MEQ/100 ML PLCT IV SCH ×2 (10:23→11:54)
[2022-05-18] MEDS: HEPARIN SOD 5,000 UNIT/0.5 ML VIAL SQ SCH ×2 (10:25→20:31)
[2022-05-18] MEDS: NSS + 20MEQ KCL 20 MEQ/1,000 ML BAG IV SCH ×2 (10:34→22:23)
--- NOTE | 2022-05-18 10:58 | Surgery Progress Note ---
Date of Service May 18, 2022 Assessment & Plan (1) S/P right hemicolectomy: Plan: Doing well - now has return of bowel function. Advance to full liquid diet today. Admission and Anticipated Discharge Date Admission Date: May 08, 2022 Subjective Nonverbal. Having multiple loose stools. Physical Exam Respiratory: normal respiratory effort, lungs clear to auscultation Cardiovascular: Rate/Rhythm: regular rate Gastrointestinal (Abdomen): normal bowel sounds, soft, nontender, no hepatosplenomegaly incision clean and dry, yuridia with minimal drainage Results & Data ([facility]) Vital Signs (Past 12 Hours) Vital Signs Temp Pulse Pulse Resp BP Pulse Ox O2 Del Method 05/18/22 09:10 37.0 C 97 H 20 172/82 H 94 Room Air 05/18/22 07:52 36.3 C L 100 H 16 175/83 H 98 Room Air 05/18/22 07:15 81 05/18/22 02:25 36.8 C 85 18 151/73 H 93 Room Air Laboratory Results Abnormal lab results 05/18/22 05/18/22 Range/Units 06:19 06:19 WBC 11.53 H (4.8-10.8) K/ul RBC 3.26 L (3.93-5.22) M/uL Hgb 9.2 L (12.0-16.0) g/dl Hct 29.6 L (34.1-44.9) % MCHC 31.1 L (32.0-36.0) g/dL RDW Std Deviation 47.5 H (36.4-46.3) fL MPV 8.8 L (9.4-12.3) fL Sodium 135 L (136-145) mmol/L Potassium 3.3 L (3.5-5.1) mmol/L BUN 5 L (6-23) mg/dl Creatinine 0.48 L (0.6-1.2) mg/dl Glucose 111 H (70-99(Fasting)) mg/dl Calcium 8.2 L (8.5-10.1) mg/dl
[2022-05-18] MEDS: ONDANSETRON INJ 2 MG/ML 2 ML VIAL IV PRN (13:15)
[2022-05-18] MEDS: HYDROmorphone INJ 0.5 MG/0.5 ML SYR IV PRN ×2 (13:15→22:23)
--- NOTE | 2022-05-18 15:34 | Hospitalist Progress Note ---
Date of Service May 18, 2022 Assessment & Plan (1) Cecum mass: Plan: Likely colon cancer but official pathology is pending. s/p ex lap with right sided hemicolectomy by Dr Norris, POD #4. End-to-end anastomosis was made during her surgery. NG tube removed 05/17/22; full liquids ordered by gen surg today. Cont IV fluids until PO intake is reliable/consistent. (2) Dementia with behavioral disturbance: Plan: severe; significant agitation with pulling out her IV, mack, etc. suspected agitation is multifactorial -- hospital psychosis, pain, SSRI withdrawal, etc. typically takes seroquel 25mg BID at the SNF. this afternoon I gave haldol 2mg IM x 1 to help with agitation. then resume seroquel tonight. check EKG in am to ensure stable QTc. (3) Small bowel obstruction: Plan: 2nd to ileocecal mass. POD #4 - s/p ex lap with right hemicolectomy and anastomosis with Dr. Norris on 05/14. Path report is pending. Cont pain control, IV fluids. NG tube is out. Diet today - full liquids. Moving bowels. Lots of liquid stools -- role of zosyn? Will hold zosyn and discuss its use with surgery in am. 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 BPs stable without it. (9) Urinary retention: Plan: Mack catheter in place. Placement date - 05/08/22 in ER. (10) Seizure disorder: Plan: Chronic. Continue Keppra 750mg po BID. (11) Hypokalemia: Plan: replace with IV KCL x 20meq then add KCL to maintenance fluids BMP in am Plan resume gabapentin resume lexapro DVT prophylaxis - cont heparin 5000 BID appreciate ongoing gen surg assistance updated pt's extensively by phone today Admission and Anticipated Discharge Date Admission Date: May 08, 2022 Subjective NG tube removed yesterday by gen surg full liquid diet started today having multiple stools (loose) patient self-removed her IV and mack this am; staff also report she was using her left hand to pull at her abdominal dressings restraints renewed due to concern for injury when I visited her on rounds she was agitated at some points, and at other times was crying I asked her if she was in pain and she shook her head no I was unable to obtain any other meaningful information or ROS per nursing staff she did not take anything at the lunch hour Review of Systems Review of Systems: Unobtainable due to cognitive status Physical Exam Physical Exam: gen - very agitated today mouth - MMM nose - NG tube absent neck - no JVD heart - RRR, s1 s2, no murmur lungs - CTA b/l abd - soft NT ND BS+ dressings intact on abdominal wall ext - no edema, pulses 2+ b/l neuro - right-sided hemiplegia, expressive aphasia; moves left arm/left leg only psych - oriented to self only? Results & Data Results & Data ([facility]) Vital Signs (Past 12 Hours) Vital Signs Temp Pulse Pulse Resp BP Pulse Ox O2 Del Method 05/18/22 10:59 37.2 C 88 16 145/79 H 92 Room Air 05/18/22 09:10 37.0 C 97 H 20 172/82 H 94 Room Air 05/18/22 07:52 36.3 C L 100 H 16 175/83 H 98 Room Air 05/18/22 07:15 81 Laboratory Results Laboratory Results - last 24 hr 05/18/22 05/18/22 06:19 06:19 WBC 11.53 H RBC 3.26 L Hgb 9.2 L Hct 29.6 L MCV 90.8 MCH 28.2 MCHC 31.1 L RDW Std Deviation 47.5 H RDW Coeff of Maria M 14.2 Plt Count 393 MPV 8.8 L Sodium 135 L Potassium 3.3 L Chloride 100 Carbon Dioxide 28 Anion Gap 7 BUN 5 L Creatinine 0.48 L Est Cr Clr Drug Dosing 103.6 Est GFR ( Amer) 110.4 Est GFR (Non-Af Amer) 95.3 BUN/Creatinine Ratio 10.4 Glucose 111 H Calcium 8.2 L PG Care Time/CCT Total # of Minutes Spent Total Time Spent with Patient: Total time spent is greater than 50% in coordination of care (as documented) at patient's floor/unit and/or counseling patient: Coding Level of Care Code 32546 Subseq Hosp Care Lvl 3 Diagnoses Cecum mass K63.89 Dementia with behavioral disturbance F03.918 Small bowel obstruction K56.609 S/P right hemicolectomy Z90.49 GERD (gastroesophageal reflux disease) K21.9 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 Hypokalemia E87.6
[2022-05-18] MEDS ORDERED: HALOPERIDOL LACTATE 5 MG/ML 1 ML VIAL IM STA (16:00)
[2022-05-18] MEDS: QUEtiapine FUMARATE 25 MG TABLET PO SCH (20:31)
[2022-05-19] MEDS: HYDROmorphone INJ 0.5 MG/0.5 ML SYR IV PRN ×3 (01:59→15:12)
[2022-05-19 07:03] LABS: Hematocrit (blood only) 31.7 % (34.1-44.9); Mean Corpuscular Hemoglobin 27.9 pg (25.0-34.0); Mean Corpuscular Hgb Conc 31.5 g/dL (32.0-36.0); Mean Corpuscular Volume 88.3 fL (80.0-100.0); Mean Platelet Volume 8.6 fL (9.4-12.3); Platelet Count 421 K/uL (130-400); RDW Coefficient of Variation 14.3 % (11.5-14.5); RDW Standard Deviation 46.1 fL (36.4-46.3); Red Blood Count 3.59 M/uL (3.93-5.22); White Blood Count 11.93 K/ul (4.8-10.8)
[2022-05-19 07:58] LABS: Calcium 8.6 mg/dl (8.5-10.1); Creatinine Clr Calc Pharmacy 99.1 ml/min; Magnesium 1.5 mg/dl (1.7-2.4); Potassium 3.3 mmol/L (3.5-5.1)
--- NOTE | 2022-05-19 08:58 | Surgery Progress Note ---
Date of Service May 19, 2022 Assessment & Plan (1) S/P right hemicolectomy: Plan: POD#5 open right hemicolectomy Appears in no distress Pt ate majority of full liquid tray for bfast. no reports of nausea/vomiting. + loose stools documented over wknd Will advance to low fiber this AM Will d/c yuridia prior to dispo (possibly today vs peter) incision looks well, no signs of infection Admission and Anticipated Discharge Date Admission Date: May 08, 2022 Supervising Physician Co-Signing Physician Notes Patient seen and examined, agree with above. Status post open right hemicolectomy for near obstructing tumor. She had multiple loose bowel movements over the weekend. She is nonverbal. On exam she is afebrile stable vitals. Abdomen is soft, incision without infection. We will advance diet as tolerated to low fiber. Dr. Norris will return tomorrow. Subjective patient unable to give meaningful subjective history. appears comfortable however and in no distress. Physical Exam Physical Exam: awake Gastrointestinal (Abdomen): Inspection/Auscultation: + abdominal surgical incision (c/d/i no signs of infection); abdomen not distended Percussion/Palpation: abdomen soft; abdomen nontender Results & Data ([facility]) Vital Signs (Past 12 Hours) Vital Signs Temp Pulse Pulse Resp BP Pulse Ox O2 Del Method 05/19/22 07:59 102 H 05/19/22 07:39 Room Air 05/19/22 03:05 37.5 C 92 H 20 131/73 96 Nasal Cannula 05/19/22 00:19 36.7 C 97 H 18 145/80 H 92 Room Air O2 Flow Rate 05/19/22 07:59 05/19/22 07:39 05/19/22 03:05 2 05/19/22 00:19 PG Care Time/CCT Total # of Minutes Spent Total Time Spent with Patient: Total time spent is greater than 50% in coordination of care (as documented) at patient's floor/unit and/or counseling patient: Coding Level of Care Code None Diagnoses S/P right hemicolectomy Z90.49
[2022-05-19] MEDS: GABAPENTIN 100 MG CAP PO SCH ×3 (09:15→19:28)
[2022-05-19] MEDS: QUEtiapine FUMARATE 25 MG TABLET PO SCH ×2 (09:15→19:28)
[2022-05-19] MEDS: HEPARIN SOD 5,000 UNIT/0.5 ML VIAL SQ SCH ×2 (09:16→21:37)
[2022-05-19] MEDS: PANTOprazole 40 MG in SYRINGE 0 ML IV SCH (09:16)
[2022-05-19] MEDS: levETIRAcetam 750 MG in 0.9 % SODIUM CHLORIDE 100 ML IV SCH ×2 (09:17→19:29)
[2022-05-19] MEDS: POTASSIUM CHLORIDE CRTAB 20 MEQ TABCR PO SCH ×3 (09:18→19:28)
[2022-05-19] MEDS: ESCITALOPRAM OXALATE 20 MG TAB PO SCH (09:18)
[2022-05-19] MEDS: MAGNESIUM SULFATE / D5W 1 GM/100 ML BAG IV SCH ×3 (09:38→13:32)
--- NOTE | 2022-05-19 10:58 | Electrocardiogram Report ---
Test Reason : Blood Pressure : / mmHG Vent. Rate : 104 BPM Atrial Rate : 104 BPM P-R Int : 164 ms QRS Dur : 080 ms QT Int : 374 ms P-R-T Axes : 062 -12 044 degrees QTc Int : 491 ms Sinus tachycardia possible Inferior infarct , age undetermined Abnormal ECG When compared with ECG of 08-MAY-2022 16:29, Inferior infarct is now Present Confirmed by Bebo Jaime ([id number]) on 05/19/2022 10:58:06 AM Referred By: [facility] Confirmed By:Rex Jaime
[2022-05-19] MEDS: NSS + 20MEQ KCL 20 MEQ/1,000 ML BAG IV SCH (17:00)
[2022-05-19] MEDS ORDERED: HYDROCODONE/ACETAMOPHEN 5/325MG TAB PO PRN (20:00)
[2022-05-19] MEDS ORDERED: HYDROmorphone INJ 0.5 MG/0.5 ML SYR IV PRN (20:01)
--- NOTE | 2022-05-19 20:02 | Hospitalist Progress Note ---
Date of Service May 19, 2022 Assessment & Plan (1) Cecum mass: Plan: Likely colon cancer but official pathology is still pending. s/p ex lap with right sided hemicolectomy by Dr Norris, POD #5. End-to-end anastomosis was made during her surgery. NG tube removed 05/17/22. Diet now advanced to low fiber. Bowel function has returned; having copious stool. Cont IV fluids at 50cc/hr until PO intake is reliable/consistent. Hopefully can stop IV fluids tomorrow. f/u on biopsy results tomorrow. stop IV zosyn - no indication for them. (2) Dementia with behavioral disturbance: Plan: severe; significant agitation with pulling out her IV, mack, etc. over the last few days suspected agitation is multifactorial -- hospital psychosis, pain, SSRI withdrawal, etc. typically takes seroquel 25mg BID at the SNF. this was resumed 05/18/22. will increase HS dose to 50mg; leave AM dose at 25mg. avoid sedatives/benzos. try to limit IV narcotics; wean such. cont restraints but remove them as soon as possible and safe to do so. (3) Small bowel obstruction: Plan: 2nd to ileocecal mass. POD #5 - s/p ex lap with right hemicolectomy and anastomosis with Dr. Norris on 05/14. Path report is pending. Cont pain control, IV fluids. NG tube is out. Diet advanced to low fiber. Moving bowels. Lots of liquid stools -- at minimum it is abx-associated diarrhea. If it persists then check c diff. 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 BPs starting to climb - likely will need to resume tomorrow. (9) Urinary retention: Plan: Mack catheter in place. Placement date - 05/08/22 in ER. Would attempt to remove soon. (10) Seizure disorder: Plan: Chronic. Continue Keppra 750mg BID. Resume PO formulation perhaps tomorrow. (11) Hypokalemia: Plan: likely 2nd to frequent stools replace repeat level am replete low mag (12) Hypomagnesemia: Plan: replete with IV mag repeat level am Plan DVT prophylaxis - cont heparin 5000 BID appreciate ongoing gen surg assistance updated pt's extensively by phone again today Admission and Anticipated Discharge Date Admission Date: May 08, 2022 Subjective patient was sleeping upon arrival she woke up easily when I called her name I told her that surgery was advancing her diet to regular and she smiled widely staff report that she has had agitation throughout the day, however with agitation she will throw her left leg around on the bed, try to pull at IVs/her dressing on abdomen, etc soft limb restraint on left thus still in place for safety during the visit she nodded no to having abdominal pain, chest pain, or other areas of pain she denied feeling short of breath per staff slept ok overnight Review of Systems Review of Systems: GI - by report no vomiting; having copious loose stools, not mucoid or foul; she denies abd pain CV - no cp pulm - no dyspnea tele overnight - NSR or ST Physical Exam Physical Exam: gen - comfortable, no agitation during my visit, shaking head yes/no to questions mouth - MMM neck - no JVD heart - RRR, s1 s2, no murmur lungs - CTA b/l abd - soft NT ND BS+ dressings intact on abdominal wall ext - no edema, pulses 2+ b/l neuro - right-sided hemiplegia, expressive aphasia; moves left arm/left leg only psych - oriented to self; cannot assess orientation to place/time Results & Data Results & Data ([facility]) Vital Signs (Past 12 Hours) Vital Signs Temp Pulse Pulse Pulse Resp BP Pulse Ox 05/19/22 19:48 36.9 C 109 H 20 171/95 H 97 05/19/22 16:00 37 C 102 H 20 90/60 L 98 05/19/22 15:57 107 H 05/19/22 11:46 37.1 C 99 H 16 125/76 93 O2 Del Method O2 Flow Rate 05/19/22 19:48 2 05/19/22 16:00 Nasal Cannula 2 05/19/22 15:57 05/19/22 11:46 Nasal Cannula 2 Laboratory Results Laboratory Results - last 24 hr 05/19/22 06:41 Sodium 138 Potassium 3.3 L Chloride 103 Carbon Dioxide 27 Anion Gap 8 BUN 3 L Creatinine 0.50 L Est Cr Clr Drug Dosing 99.1 Est GFR ( Amer) 109.0 Est GFR (Non-Af Amer) 94.0 BUN/Creatinine Ratio 6.0 L Glucose 137 H Calcium 8.6 Magnesium 1.5 L PG Care Time/CCT Total # of Minutes Spent Total Time Spent with Patient: Total time spent is greater than 50% in coordination of care (as documented) at patient's floor/unit and/or counseling patient: Coding Level of Care Code 76547 Subseq Hosp Care Lvl 3 Diagnoses Cecum mass K63.89 Dementia with behavioral disturbance F03.918 Small bowel obstruction K56.609 S/P right hemicolectomy Z90.49 GERD (gastroesophageal reflux disease) K21.9 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
[2022-05-19] MEDS ORDERED: QUEtiapine FUMARATE 25 MG TABLET PO SCH (21:00)
[2022-05-20] MEDS: HEPARIN SOD 5,000 UNIT/0.5 ML VIAL SQ SCH (08:20)
[2022-05-20] MEDS: GABAPENTIN 100 MG CAP PO SCH ×2 (08:21→13:03)
[2022-05-20] MEDS: ESCITALOPRAM OXALATE 20 MG TAB PO SCH (08:21)
[2022-05-20] MEDS: levETIRAcetam 750 MG in 0.9 % SODIUM CHLORIDE 100 ML IV SCH (08:31)
[2022-05-20] MEDS: POTASSIUM CHLORIDE CRTAB 20 MEQ TABCR PO SCH (08:31)
[2022-05-20] MEDS ORDERED: PANTOprazole 40 MG TAB PO SCH (09:00)
[2022-05-20] MEDS ORDERED: QUEtiapine FUMARATE 25 MG TABLET PO SCH (09:00)
[2022-05-20 10:20] LABS: BUN Creatinine Ratio 6.8 (10-20); Calcium 8.9 mg/dl (8.5-10.1); Creatinine Clr Calc Pharmacy 84.3 ml/min; Est GFR (African American) 103.2 ml/min; Magnesium 1.7 mg/dl (1.7-2.4)
--- NOTE | 2022-05-20 12:11 | Surgery Progress Note ---
Date of Service May 20, 2022 Assessment & Plan (1) S/P right hemicolectomy: Plan: Patient is tolerating a low fiber diet Her bowels are moving She does not seem to be complaining of a lot of pain Can most likely take p.o. pain meds Okay for discharge when medically stable Nimitz can be removed next week at the nursing facility Does not necessarily have to follow-up with surgery unless she is having problems Admission and Anticipated Discharge Date Admission Date: May 08, 2022 Results & Data ([facility]) Vital Signs (Past 12 Hours) Vital Signs Temp Pulse Pulse Resp BP Pulse Ox O2 Del Method 05/20/22 12:03 36.9 C 87 18 133/73 98 Nasal Cannula 05/20/22 07:32 90 05/20/22 07:08 Nasal Cannula O2 Flow Rate 05/20/22 12:03 2 05/20/22 07:32 05/20/22 07:08 2 PG Care Time/CCT Total # of Minutes Spent Total Time Spent with Patient: Total time spent is greater than 50% in coordination of care (as documented) at patient's floor/unit and/or counseling patient: Coding Level of Care Code None Diagnoses S/P right hemicolectomy Z90.49
[2022-05-20] MEDS: NSS + 20MEQ KCL 20 MEQ/1,000 ML BAG IV SCH (12:41)
--- NOTE | 2022-05-20 19:30 | Discharge Summary ---
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 Patient was seen in the ER with similar symptoms on 04/30/22. She had a CT of the abdomen and pelvis which revealed prominent wall thickening of the terminal ileum with numerous dilated loops of bowel of the proximal ileum without a transition point. Findings suggestive of infectious/inflammatory ileitis. She was treated with IVF, Tylenol, Pepcid, Protonix and Bentyl as well as Ceftr iaxone and Flagyl. She was discharged home with Cefdinir and Metronidazole. She returns to the ER today with complaint of explosive diarrhea as well as some nausea. No vomiting. Patient is nonverbal but is clearly able to answer yes or no questions by shaking her head. She does report lower abdominal discomfort. Otherwise, denies fever, chills, chest pain, cough, SOB. She has not been eating much due to poor appetite. No additional complaints. In the ER she is afebrile, HD stable, NAD. Stool biofire panel performed in the ER is NEGATIVE. Patient was having some significant abdominal discomfort - She had a bladder scan performed which revealed 925mL of urine. A mack catheter was placed with return of clear yellow urine. ER Course: Tylenol, Toradol, Morphine, Zofran, NSS Principal Diagnosis Colon CA, cecal mass, s/p partial colectomy Discharge Exam gen - comfortable, no agitation during my visit, shaking head yes/no to questions heart - RRR, s1 s2, no murmur lungs - CTA b/l abd - soft NT ND BS+ dressings intact on abdominal wall ext - no edema, pulses 2+ b/l neuro - right-sided hemiplegia, expressive aphasia; moves left arm/left leg only psych - oriented to self; cannot assess orientation to place/time Discharge Data Allergies Allergy/AdvReac Type Severity Reaction Status Date / Time adhesive tape Allergy Unknown ON CENTRE Verified 04/30/22 18:52 CARE MED LIST mepivacaine [From Carbocaine] Allergy Unknown ON CENTRE Verified 04/30/22 18:52 CARE MED LIST tetanus immune globulin Allergy Unknown ON CENTRE Verified 04/30/22 18:52 CARE MED LIST Consultations 05/08/22 19:32 ED Decision to Admit Stat 05/08/22 21:44 Consult Gastroenterology Routine 05/12/22 19:07 Consult General Surgery Routine 05/13/22 12:05 Consult Anesthesiology Routine 05/14/22 14:46 Consult Damascener Routine Procedures Performed Operation Date: 05/14/22 08:20 Actual Procedures p Right Colon Resection(Not Applicable) - Mitch Norris MD, FACS Ordered Studies 05/08/22 17:07 CT abd pelvis IV con only Stat 05/12/22 19:55 CT Abd and Pelvis [CT abd pelvis IV con only] Stat Hospital Course (1) Cecum mass: s/p ex lap with right sided hemicolectomy by Dr Norris, POD #6 Pathology shows adenocarcinoma-Surgery reached out to patient's family member to inform them End-to-end anastomosis was made during her surgery. NG tube removed 05/17/22. Diet now advanced to low fiber and tolerating Bowel function has returned; having copious stool. did receive IV Zosyn which has since been stopped Can f/u with Oncology if desired as outpt but with dementia, would not be a good candidate most likely for any systemic treatments (2) Dementia with behavioral disturbance: severe; significant agitation with pulling out her IV, mack, etc. -now resolved suspected agitation is multifactorial -- hospital psychosis, pain, SSRI withdrawal, etc. typically takes seroquel 25mg BID at the SNF. this was resumed 05/18/22. increased HS dose to 50mg; leave AM dose at 25mg. avoid sedatives/benzos. try to limit IV narcotics; wean such. off restraints and doing well on day of discharge (3) Small bowel obstruction: 2nd to ileocecal mass. POD #6 - s/p ex lap with right hemicolectomy and anastomosis with Dr. Norris on 05/14. 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 Continue Keppra 750mg BID. (11) Hypokalemia: likely 2nd to frequent stools replaced and normalized (12) Hypomagnesemia: repleted Plan DVT prophylaxis - heparin 5000 BID Dispo-dc to SNF Total Time Total Time Spent Total Time Spent (In Minutes): 35 min Discussed care with Dr. Norris of Surgery Discharge Plan Discharge Items Patient Disposition: Transfer Long-Term Fac Reason For Visit: DIARRHEA, ABDOMINAL PAIN Discharge Diagnosis: Cecum mass, colorectal adenocarcinoma with metastasis, s/p hemicolectomy Condition on Discharge: Fair Activity: As commented below Non-emergency contact: Primary Care Provider and Surgeon Call non-emergency contact if: you have any medication questions, your symptoms worsen, your pain is not controlled, you have a fever, your wound has increased redness, your wound has increased drainage and your wound pain has increased Follow-up/Referrals: Mitch Norris MD, FACS [Physician] - (Follow up as needed.) [facility] [Primary Care Provider] - Codie Zelaya MD [Physician] - (Please schedule a new patient consultation for your colon cancer.) Diet: Low Fiber Diet Texture: Easy to Chew [place] Attending Provider Instructions: SPECIAL CARE INSTRUCTIONS: * Cover incisions and change daily for comfort/drainage. * May use ibuprofen for pain as tolerated. * Expect some swelling and bruising. Call your doctor if: * Temperature above 101 degrees * Pain not relieved by pain medicine ordered * There is increased drainage or redness from any incision * You have any unanswered questions or concerns [phone]. FOLLOW UP VISIT: You do not need to follow up in clinic unless your facility desires OFFICE PHONE NUMBER: Dr. Norris Office Zahra may be removed next week at the nursing facility [place] Director Of Exhibit Development Provider Instructions: You were diagnosed with colon cancer and it had spread to your lymph node in the abdomen. You can talk to an Oncologist if desired to see if any treatment options are indicated for you. Pending Studies at Discharge: No Stand-Alone Forms: My [employer] travel Skilled Items Patient informed of condition?: Yes DNR: Yes Discharge Level of Care: Skilled Communicable Disease: No Discharge Prognosis: Improving Lines: None Urinary Catheter: No Medications and DC Order Prescriptions: Continued atorvastatin 80 mg Tablet 80 mg PO HS oxybutynin chloride 10 mg Tablet Extended Release 24hr 10 mg PO DAILY atenolol 25 mg Tablet 25 mg PO Q12 bacitracin 500 unit/gram Ointment 1 applic TOPICAL QPM Rx Instructions: L MIDDLE NAILBED & COVER WITH BANDAID, STARTED 04/27/22 FOR 10 DAYS. calcium carbonate [Tums Extra Strength Smoothies] 300 mg (750 mg) Tablet,Chewable 300 mg PO BID Rx Instructions: GIVE WITH LUNCH AND DINNER melatonin 3 mg Tablet 3 mg PO HS acetaminophen [Tylenol Extra Strength] 500 mg Tablet 1,000 mg PO Q12H MDD 3 GRAMS/24 HOURS hydrocortisone [Preparation H Hydrocortisone] 1 % Cream 1 applic TOPICAL Q6H PRN (Reason: Hemorrhoids) pantoprazole 40 mg Tablet,Delayed Release (Dr/Ec) 40 mg PO DAILY ferrous sulfate 325 mg (65 mg iron) Tablet 325 mg PO DAILY ibuprofen 200 mg Tablet 400 mg PO Q6H PRN (Reason: Pain) aspirin 81 mg Tablet,Chewable 81 mg PO DAILY levetiracetam [Keppra] 750 mg Tablet 750 mg PO Q12H gabapentin 100 mg Capsule 100 mg PO TID escitalopram oxalate [Lexapro] 20 mg Tablet 20 mg PO DAILY diclofenac sodium 1 % Gel 2 g TOPICAL QID Rx Instructions: APPLY TO R ELBOW, R FOREARM. dextromethorphan-quinidine 20-10 mg Capsule 1 cap PO BID [id number] carb-vit K 18 mg iron-400 mcg-500 mg Tablet 1 tab PO DAILY baclofen 5 mg Tablet 5 mg PO TID ondansetron 4 mg tablet,disintegrating 4 mg PO Q6H PRN (Reason: nausea and vomiting) Qty: 14 0RF Saccharomyces boulardii [Florastor] 250 mg Capsule 250 mg PO BID Rx Instructions: start 05/01/22 for 10 days quetiapine 25 mg tablet 25 mg PO Q12 promethazine 25 mg Tablet 25 mg PO Q6H PRN (Reason: Nausea And Vomiting) Rx Instructions: start 05/05/22 for 1 week promethazine 25 mg/mL Solution 25 mg IM Q6H PRN (Reason: Nausea And Vomiting) Rx Instructions: start 05/05/22 for 1 week if zofran is ineffective acetaminophen [Tylenol] 325 mg Tablet 650 mg PO Q6 MDD 3g...see routine order PRN (Reason: temp > 100) Discontinued vancomycin 125 mg Capsule 125 mg PO Q6 Rx Instructions: start 05/08/22 for 10 days Discharge Orders: Discharge Order (Routine); Ordered 05/20/22 Ordered By: Shanda Victoria Admission Data Admit Date/Time: 05/08/22 20:19 Attending Provider: Shanda Victoria Admit Provider: Lavern Carroll Primary Care Provider: [place] Other Providers: 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
[2022-05-20] MEDS ORDERED: levETIRAcetam 250 MG TAB PO SCH (21:00)
--- NOTE | 2022-05-27 13:30 | Coding Query ---
PATHOLOGY To promote full compliance with coding requirements relating to patient care, physician participation is requested in all cases of auditing coder uncertainty. Please assist us with the question(s) below: Please review the Pathology report and please document any relevant diagnosis(es) below: Diagnosis(es): Metastatic adenocarcinoma of the colon Thank you Corrina BRUNNER
== END 2022-05-20 14:24 | DRG 330 ==
LOC: 3W 16:21 → ED 16:21 → OBSVTOIN 20:10 → SUATTDRO 20:19 → 3W 21:19 → 1E 05-14 10:53 → 2W 05-16 18:46
DX: Z91.048 Other nonmedicinal substance allergy status; T36.0X5A Adverse effect of penicillins, initial encounter; K56.690 Other partial intestinal obstruction; E83.42 Hypomagnesemia; Z88.7 Allergy status to serum and vaccine; Z79.899 Other long term (current) drug therapy; K56.7 Ileus, unspecified; I69.320 Aphasia following cerebral infarction; N18.2 Chronic kidney disease, stage 2 (mild); K21.9 Gastro-esophageal reflux disease without esophagitis; I12.9 Hypertensive chronic kidney disease with stage 1 through stage 4 chronic kidney disease, or unspecified chronic kidney disease; F01.C18 Vascular dementia, severe, with other behavioral disturbance; Z79.1 Long term (current) use of non-steroidal anti-inflammatories (NSAID); E87.6 Hypokalemia; R33.9 Retention of urine, unspecified; Z66 Do not resuscitate; I69.351 Hemiplegia and hemiparesis following cerebral infarction affecting right dominant side; C79.9 Secondary malignant neoplasm of unspecified site; Z88.4 Allergy status to anesthetic agent; K66.0 Peritoneal adhesions (postprocedural) (postinfection); K52.1 Toxic gastroenteritis and colitis; Z79.82 Long term (current) use of aspirin; C18.0 Malignant neoplasm of cecum; G40.909 Epilepsy, unspecified, not intractable, without status epilepticus